=== PATIENT | female | born 1975 | race Caucasian/White ===

== ENCOUNTER 2016-03-07 15:49 | Emergency (ER) | payer MEDICAID ==
[2016-03-07] MEDS ORDERED: ONDANSETRON 4 MG TAB.RAPDIS PO ONE (16:56)
[2016-03-07] MEDS ORDERED: OXYCODONE-ACETAMINOPHEN 5-325 MG TABLET PO ONE (16:56)
--- NOTE | 2016-03-07 16:57 | ER Document Report ---
ED Medical Screen (RME) - General Chief Complaint: Flank Pain Stated Complaint: URINARY ISSUE Time seen by provider: 16:57 Mode of Arrival: Ambulatory Information source: Patient Notes: 40-year-old female complaining of right flank pain with hematuria since early Tuesday morning at 0330 when it woke her up The pain radiates into her right middle abdomen and she feels like it is a kidney stone. She's had lithotripsy in the past. LMP 12-15-16 TRAVEL OUTSIDE OF THE [place] IN LAST 30 DAYS: No - Related Data Allergies/Adverse Reactions: prochlorperazine edisylate [From Compazine] Allergy (Severe, Verified 04/21/12 13:03) Facial swelling prochlorperazine maleate [From Compazine] Allergy (Severe, Verified 04/21/12 13: 03) Facial swelling verapamil [Verapamil] Allergy (Intermediate, Verified 04/21/12 13:03) Pruritis Past Medical History - Past Medical History Cardiac Medical History: Reports: Hx Hypercholesterolemia, Hx Hypertension Pulmonary Medical History: Reports: Hx Asthma Neurological Medical History: Denies: Hx Seizures Renal/ Medical History: Reports: Hx Kidney Stones Past Surgical History: Reports: Hx Section, Hx Tonsillectomy, Hx Urinary Tract Surgery. Denies: Hx Pacemaker - Immunizations Hx Diphtheria, Pertussis, Tetanus Vaccination: Yes Physical Exam - Vital signs Vitals: Temp Pulse Resp BP Pulse Ox 97.5 F 98 16 108/68 97 03/07/16 16:07 03/07/16 16:07 03/07/16 16:07 03/07/16 16:07 03/07/16 16:07 Course - Vital Signs Vital signs: Temp Pulse Resp BP Pulse Ox 97.5 F 98 16 108/68 97 03/07/16 16:07 03/07/16 16:07 03/07/16 16:07 03/07/16 16:07 03/07/16 16:07
[2016-03-07] MEDS ORDERED: NORMAL SALINE 1000 ML 1,000 ML IV ONE (18:10)
[2016-03-07 18:28] LABS: APPEARANCE,URINE CLOUDY; BILIRUBIN,URINE NEGATIVE (NEGATIVE); GLUCOSE, URINE NEGATIVE (NEGATIVE); KETONES,URINE NEGATIVE (NEGATIVE); LEUKOCYTE ESTERASE,URINE LARGE (NEGATIVE); NITRITE,URINE NEGATIVE (NEGATIVE); PROTEIN,URINE 100 mg/dL (NEGATIVE); URINE SPECIFIC GRAVITY 1.015; UROBILINOGEN,URINE NEGATIVE mg/dL (<2.0)
[2016-03-07] MEDS ORDERED: CEFTRIAXONE 1 GM/D5W RTU 50 ML IV ONE (18:35)
[2016-03-07 18:44] LABS: ABSOLUTE BASOPHILS # (AUTO) 0.1 10^3/uL (0.0-0.2); ABSOLUTE EOSINOPHILS # (AUTO) 0.1 10^3/uL (0.0-0.6); ABSOLUTE LYMPHOCYTES (AUTO) 3.3 10^3/uL (0.5-4.7); ABSOLUTE NEUT (AUTO) 15.3 10^3/uL (1.7-8.2); BASOPHILS % (AUTO) 0.6 % (0-2); EOSINOPHILS % (AUTO) 0.7 % (0-6); HEMATOCRIT 36.6 % (36.0-47.0); HEMOGLOBIN 12.1 g/dL (12.0-15.5); HGB HCT DIFFERENCE -0.3; LYMPHOCYTES % (AUTO) 16.6 % (13-45); MEAN CORPUSCULAR HEMOGLOBIN 29.5 pg (27.0-33.4); MEAN CORPUSCULAR HGB CONC 33.1 g/dL (32.0-36.0); MEAN CORPUSCULAR VOLUME 89 fl (80-97); MONOCYTES % (AUTO) 5.1 % (3-13); RED CELL DISTRIBUTION WIDTH 13.7 % (11.5-14.0); WHITE BLOOD COUNT 19.8 10^3/uL (4.0-10.5)
[2016-03-07 18:58] LABS: ALANINE AMINOTRANSFERASE 29 U/L (9-52); ALBUMIN 3.6 g/dL (3.5-5.0); ALKALINE PHOSPHATASE 77 U/L (38-126); ANION GAP 12 (5-19); ASPARTATE AMINO TRANSFERASE 15 U/L (14-36); BILIRUBIN,TOTAL 0.5 mg/dL (0.2-1.3); BLOOD UREA NITROGEN 13 mg/dL (7-20); CARBON DIOXIDE 23 mmol/L (22-30); CHLORIDE 105 mmol/L (98-107); CREATININE RESULT 0.79 mg/dL (0.52-1.25); GLUCOSE 97 mg/dL (75-110); POTASSIUM 4.2 mmol/L (3.6-5.0); SODIUM 139.5 mmol/L (137-145); TOTAL PROTEIN 6.5 g/dL (6.3-8.2)
[2016-03-07 19:19] VITALS: BP 101/64
--- NOTE | 2016-03-07 19:26 | ER Document Report ---
ED General - General Chief Complaint: Flank Pain Stated Complaint: URINARY ISSUE Mode of Arrival: Ambulatory TRAVEL OUTSIDE OF THE [place] IN LAST 30 DAYS: No - HPI Patient complains to provider of: hematuria flank pain right Onset: Yesterday Onset/Duration: Sudden Quality of pain: Achy Severity: Moderate Pain Level: 3 Associated symptoms: Nausea Exacerbated by: Denies Relieved by: Denies Similar symptoms previously: Yes Recently seen / treated by doctor: No Notes: Patient states history kidney stones states similar to kidney stones the past. Patient states as passing blood clots. States no fevers no chills slight nausea no vomiting. No recent travel no recent antibiotics. - Related Data Allergies/Adverse Reactions: prochlorperazine edisylate [From Compazine] Allergy (Severe, Verified 04/21/12 13:03) Facial swelling prochlorperazine maleate [From Compazine] Allergy (Severe, Verified 04/21/12 13: 03) Facial swelling verapamil [Verapamil] Allergy (Intermediate, Verified 04/21/12 13:03) Pruritis Past Medical History - General Information source: Patient - Social History Smoking Status: Unknown if Ever Smoked Family History: None - Past Medical History Cardiac Medical History: Reports: Hx Hypercholesterolemia, Hx Hypertension Pulmonary Medical History: Reports: Hx Asthma Neurological Medical History: Denies: Hx Seizures Renal/ Medical History: Reports: Hx Kidney Stones Past Surgical History: Reports: Hx Section, Hx Tonsillectomy, Hx Urinary Tract Surgery. Denies: Hx Pacemaker - Immunizations Hx Diphtheria, Pertussis, Tetanus Vaccination: Yes Review of Systems - Review of Systems Constitutional: No symptoms reported EENT: No symptoms reported Cardiovascular: No symptoms reported Respiratory: No symptoms reported Gastrointestinal: Nausea, Other - Flank pain Genitourinary: No symptoms reported Female Genitourinary: No symptoms reported Musculoskeletal: No symptoms reported Skin: No symptoms reported Hematologic/Lymphatic: No symptoms reported Neurological/Psychological: No symptoms reported Physical Exam - Vital signs Vitals: Temp Pulse Resp BP Pulse Ox 97.5 F 98 16 108/68 97 03/07/16 16:07 03/07/16 16:07 03/07/16 16:07 03/07/16 16:07 03/07/16 16:07 Interpretation: Normal - General General appearance: Appears well, Alert - HEENT Head: Normocephalic, Atraumatic Eyes: Normal Pupils: PERRL - Respiratory Respiratory status: No respiratory distress Chest status: Nontender Breath sounds: Normal Chest palpation: Normal - Cardiovascular Rhythm: Regular Heart sounds: Normal auscultation Murmur: No - Abdominal Inspection: Normal Distension: No distension Bowel sounds: Normal Tenderness: Nontender Organomegaly: No organomegaly - Rectal Notes: Flank pain right side - Back Back: Normal, Nontender - Extremities General upper extremity: Normal inspection, Nontender, Normal color, Normal ROM , Normal temperature General lower extremity: Normal inspection, Nontender, Normal color, Normal ROM , Normal temperature, Normal weight bearing. No: Sneha's sign - Neurological Neuro grossly intact: Yes Cognition: Normal Orientation: AAOx4 [place] Coma Scale Eye Opening: Spontaneous [place] Coma Scale Verbal: Oriented [place] Coma Scale Motor: Obeys Commands [place] Coma Scale Total: 15 Speech: Normal Motor strength normal: LUE, RUE, LLE, RLE Sensory: Normal - Psychological Associated symptoms: Normal affect, Normal mood - Skin Skin Temperature: Warm Skin Moisture: Dry Skin Color: Normal Course - Re-evaluation Re-evalutation: 03/08/16 02:53 Patient with a white count and urinalysis showing signs of infection. CT scan did not show any obstructive uropathy. Patient will be given a dose of antibiotic here and will be discharged home with oral antibiotics. Patient agrees this plan patient will follow-up with PCP. Urine was sent for culture. - Vital Signs Vital signs: Temp Pulse Resp BP Pulse Ox 97.5 F 98 18 101/64 93 03/07/16 16:07 03/07/16 16:07 03/07/16 19:01 03/07/16 19:01 03/07/16 19:01 - Laboratory Result Diagrams: 03/07/16 18:20 03/07/16 18:20 Laboratory results interpreted by me: 03/07/16 03/07/16 16:07 18:20 WBC 19.8 H Absolute Neutrophils 15.3 H Urine Protein 100 H Urine Blood MODERATE H Ur Leukocyte Esterase LARGE H Discharge - Discharge Clinical Impression: Pyelonephritis, Right ovarian cyst Condition: Stable Disposition: HOME, SELF-CARE Instructions: Rocephin ([facility]), Trimethoprim-Sulfa ([facility]), Oral Narcotic Medication ([facility]), Pyelonephritis ([facility]) Additional Instructions: Your laboratory today shows signs of infection due to you having flank pain and more likely this infection is in your kidney. This can also be causing her hematuria. We will give you a dose of Rocephin here in the ER. I will treat her pain with a medication called Pyridium that was normal. Bladder. Also we will treat your pain with Ultram. He can still take Tylenol and Motrin for your pain. Return to ER symptoms worsen. Follow-up with your primary care physician. We will send her urine for culture these results will take approximately 48-72 hours. Please have your primary care provider follow-up on culture results. You can expect to have hematuria for the next few days this will gradually clear up once he infection clears. Prescriptions: Ondansetron [Zofran Odt 4 mg Tablet] 4 mg PO Q4HP PRN #30 tab.rapdis PRN Reason: Hydrocodone Bit/Acetaminophen [Hydrocodon-Acetaminophen 5-325] 1 each PO Q6 #20 tablet Phenazopyridine HCl [Pyridium 100 Mg Tablet] 100 mg PO TID #15 tablet Sulfamethoxazole/Trimethoprim [Bactrim Ds Tablet] 1 each PO BID #20 tablet Forms: Smoking Cessation Education, Return to Work
[2016-03-07] MEDS ORDERED: ONDANSETRON ODT 4 MG TAB (6 TAB/DSPK) PO PRN (19:35)
[2016-03-07] MEDS ORDERED: HYDROCODONE/ACETAMINOPHEN 5-325 MG 6 TAB/DSPK PO PRN (19:35)
== END 2016-03-07 20:07 | disposition home or self-care (01) ==
LOC: ER 15:49
DX: N12 Tubulo-interstitial nephritis, not specified as acute or chronic (principal); N83.201 Unspecified ovarian cyst, right side; R10.9 Unspecified abdominal pain; R31.9 Hematuria, unspecified; E78.00 Pure hypercholesterolemia, unspecified; I10 Essential (primary) hypertension; Z87.442 Personal history of urinary calculi
CPT/HCPCS: 99284; 96361; 96365; 36415; 87040; 87086; 85025; 81025; 87088; 80053; 81001; 87186; 76380; S0119; J7030; J0696

== ENCOUNTER 2016-09-30 23:49 | Emergency (ER) | payer MEDICAID ==
[2016-10-01 02:46] LABS: APPEARANCE,URINE CLEAR; BILIRUBIN,URINE NEGATIVE (NEGATIVE); GLUCOSE, URINE NEGATIVE (NEGATIVE); KETONES,URINE NEGATIVE (NEGATIVE); LEUKOCYTE ESTERASE,URINE TRACE (NEGATIVE); NITRITE,URINE NEGATIVE (NEGATIVE); PROTEIN,URINE NEGATIVE (NEGATIVE); URINE SPECIFIC GRAVITY 1.011; UROBILINOGEN,URINE NEGATIVE mg/dL (<2.0)
[2016-10-01 02:52] LABS: ABSOLUTE BASOPHILS # (AUTO) 0.1 10^3/uL (0.0-0.2); ABSOLUTE EOSINOPHILS # (AUTO) 0.2 10^3/uL (0.0-0.6); ABSOLUTE LYMPHOCYTES (AUTO) 3.2 10^3/uL (0.5-4.7); ABSOLUTE NEUT (AUTO) 15.4 10^3/uL (1.7-8.2); BASOPHILS % (AUTO) 0.5 % (0-2); EOSINOPHILS % (AUTO) 0.9 % (0-6); HEMATOCRIT 44.8 % (36.0-47.0); HEMOGLOBIN 15.3 g/dL (12.0-15.5); HGB HCT DIFFERENCE 1.1; LYMPHOCYTES % (AUTO) 16.3 % (13-45); MEAN CORPUSCULAR HEMOGLOBIN 30.2 pg (27.0-33.4); MEAN CORPUSCULAR HGB CONC 34.1 g/dL (32.0-36.0); MEAN CORPUSCULAR VOLUME 89 fl (80-97); RED BLOOD COUNT 5.06 10^6/uL (3.72-5.28); RED CELL DISTRIBUTION WIDTH 13.7 % (11.5-14.0); SEGMENTED NEUTROPHILS % (AUTO) 77.3 % (42-78); WHITE BLOOD COUNT 19.9 10^3/uL (4.0-10.5)
[2016-10-01 02:55] LABS: ALANINE AMINOTRANSFERASE 28 U/L (9-52); ALBUMIN 4.3 g/dL (3.5-5.0); ALKALINE PHOSPHATASE 95 U/L (38-126); ANION GAP 13 (5-19); ASPARTATE AMINO TRANSFERASE 17 U/L (14-36); BILIRUBIN,DIRECT 0.4 mg/dL (0.0-0.4); BILIRUBIN,TOTAL 0.5 mg/dL (0.2-1.3); BLOOD UREA NITROGEN 17 mg/dL (7-20); CALCIUM 10.5 mg/dL (8.4-10.2); CARBON DIOXIDE 25 mmol/L (22-30); CHLORIDE 102 mmol/L (98-107); CREATININE RESULT 0.87 mg/dL (0.52-1.25); GLUCOSE 101 mg/dL (75-110); LIPASE 227.6 U/L (23-300); POTASSIUM 4.9 mmol/L (3.6-5.0); TOTAL PROTEIN 7.9 g/dL (6.3-8.2)
[2016-10-01] MEDS ORDERED: NORMAL SALINE 1000 ML 1,000 ML IV PRN (04:01)
[2016-10-01] MEDS ORDERED: MORPHINE SULFATE 10 MG/ML INJ IV ONE ×3 (04:01→09:56)
[2016-10-01] MEDS ORDERED: ONDANSETRON HCL INJ/PF 4 MG/2 ML SDV IV ONE (04:01)
[2016-10-01] MEDS ORDERED: NORMAL SALINE 1000 ML 1,000 ML IV ONE (04:01)
--- NOTE | 2016-10-01 07:31 | ER Document Report ---
ED GI/ <BRYCE CASTRO - Last Filed: 10/01/16 11:56> - General Mode of Arrival: Ambulatory Information source: Patient TRAVEL OUTSIDE OF THE [place] IN LAST 30 DAYS: No - HPI Patient complains to provider of: Abdominal pain Onset: Other - 5 days Timing/Duration: Waxing and waning Quality of pain: Sharp Severity at maximum: Severe Severity in ED: Moderate Pain Level: 3 Location: LLQ Associated symptoms: Nausea. denies: Vomiting Exacerbated by: Food Relieved by: Denies Similar symptoms previously: No Recently seen / treated by doctor: No <SEVERINO TEMPLE - Last Filed: 10/01/16 21:21> - General Chief Complaint: Abdominal Pain Stated Complaint: ABDOMINAL PAIN Time Seen by Provider: 10/01/16 02:15 Notes: 41-year-old female presents to ED for abdominal pain with low back pain for the last 5 days. She states she took Pepto-Bismol and then 2 days later developed black stools. She also complained of dizziness and nausea. She states the pain is worse with eating. She has not had any vomiting. Pain is worse on her lower left side. Last menstrual period was September 17. 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 (SEVERINO TEMPLE) - Related Data Allergies/Adverse Reactions: prochlorperazine edisylate [From Compazine] Allergy (Severe, Verified 10/01/16 07:54) Facial swelling prochlorperazine maleate [From Compazine] Allergy (Severe, Verified 10/01/16 07: 54) Facial swelling verapamil [Verapamil] Allergy (Intermediate, Verified 10/01/16 07:54) Pruritis Past Medical History - General Information source: Patient - Social History Smoking Status: Current Every Day Smoker Cigarette use (# per day): Yes Chew tobacco use (# tins/day): No Smoking Education Provided: Yes Frequency of alcohol use: None Drug Abuse: None Family History: None Patient has suicidal ideation: No Patient has homicidal ideation: No - Past Medical History Cardiac Medical History: Reports: Hx Hypercholesterolemia, Hx Hypertension Pulmonary Medical History: Reports: Hx Asthma EENT Medical History: Reports: None Neurological Medical History: Reports: None Endocrine Medical History: Reports: None Renal/ Medical History: Reports: Hx Kidney Stones Malignancy Medical History: Reports: None Musculoskeltal Medical History: Reports Hx Musculoskeletal Deformity, Reports Hx Musculoskeletal Trauma Skin Medical History: Reports Hx Eczema, Reports Hx Psoriasis Psychiatric Medical History: Reports: Hx Anxiety, Hx Depression, Hx Post Traumatic Stress Disorder Traumatic Medical History: Reports: Hx Fractures Past Surgical History: Reports: Hx Section, Hx Tonsillectomy, Hx Urinary Tract Surgery. Denies: Hx Pacemaker - Immunizations Hx Diphtheria, Pertussis, Tetanus Vaccination: Yes <SEVERINO TEMPLE - Last Filed: 10/01/16 21:21> Review of Systems - Review of Systems Constitutional: No symptoms reported EENT: No symptoms reported Cardiovascular: No symptoms reported Respiratory: No symptoms reported Gastrointestinal: Abdominal pain, Nausea. denies: Vomiting Genitourinary: No symptoms reported Female Genitourinary: No symptoms reported Musculoskeletal: No symptoms reported Skin: No symptoms reported Hematologic/Lymphatic: No symptoms reported Neurological/Psychological: No symptoms reported -: Yes All other systems reviewed and negative <SEVERINO TEMPLE - Last Filed: 10/01/16 21:21> Physical Exam - Vital signs Interpretation: Normal - General General appearance: Appears well, Alert - HEENT Head: Normocephalic, Atraumatic Eyes: Normal Pupils: PERRL - Respiratory Respiratory status: No respiratory distress Chest status: Nontender Breath sounds: Normal Chest palpation: Normal - Cardiovascular Rhythm: Regular Heart sounds: Normal auscultation Murmur: No - Abdominal Inspection: Normal Distension: No distension Bowel sounds: Normal Tenderness: Tender - left lower abdominal and low back pain Organomegaly: No organomegaly - Back Back: Normal, Nontender - Extremities General upper extremity: Normal inspection, Nontender, Normal color, Normal ROM , Normal temperature General lower extremity: Normal inspection, Nontender, Normal color, Normal ROM , Normal temperature, Normal weight bearing. No: Sneha's sign - Neurological Neuro grossly intact: Yes Cognition: Normal Orientation: AAOx4 [place] Coma Scale Eye Opening: Spontaneous Augie Coma Scale Verbal: Oriented [place] Coma Scale Motor: Obeys Commands [place] Coma Scale Total: 15 Speech: Normal Motor strength normal: LUE, RUE, LLE, RLE Sensory: Normal - Psychological Associated symptoms: Normal affect, Normal mood - Skin Skin Temperature: Warm Skin Moisture: Dry Skin Color: Normal <SEVERINO TEMPLE - Last Filed: 10/01/16 21:21> - Vital signs Vitals: Temp Pulse Resp BP Pulse Ox 99.1 F 103 H 16 145/84 H 96 10/01/16 00:00 10/01/16 00:00 10/01/16 00:00 10/01/16 00:00 10/01/16 00:00 Course - Laboratory Result Diagrams: 10/01/16 02:30 10/01/16 02:30 <BRYCE CASTRO - Last Filed: 10/01/16 11:56> - Laboratory Result Diagrams: 10/01/16 02:30 10/01/16 02:30 <SEVERINO TEMPLE - Last Filed: 10/01/16 21:21> - Re-evaluation Re-evalutation: 10/01/16 07:[address], c/o pain., morphine for pain, tender LLQ over bowel. No vaginal discharge. 10/01/16 07:53 10/01/16 08:36 ct scan shows bila. 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 bowel OK. Nothingd to show what is causing the evelated wbc and LLQ tenderness. 10/01/16 11:34 ultrasound is negative except for small right ovarian cyst. Will send home per dr. crum. (BRYCE CASTRO) 10/01/16 07:40 report given to Daron Castro [facility] (SEVERINO TEMPLE) - Vital Signs Vital signs: Temp Pulse Resp BP Pulse Ox 98 F 83 16 126/96 H 99 10/01/16 12:20 10/01/16 12:20 10/01/16 12:20 10/01/16 12:20 10/01/16 12:20 - Laboratory Laboratory results interpreted by me: 10/01/16 10/01/16 10/01/16 02:30 02:30 02:30 WBC 19.9 H Absolute Neutrophils 15.4 H Calcium 10.5 H Ur Leukocyte Esterase TRACE H Discharge <BRYCE CASTRO - Last Filed: 10/01/16 11:56> <SEVERINO TEMPLE - Last Filed: 10/01/16 21:21> - Discharge Clinical Impression: Abdominal pain, left lower quadrant Condition: Good Disposition: HOME, SELF-CARE Instructions: Abdominal Pain ([facility]), Pain Medication Injection ([facility]), Ultram ( [facility]) Additional Instructions: to er if worse see your provider at [facility] Please complete the patient satisfaction survey if you get one, and return it.. If you do not receive a survey, then you can go to the [facility] website, [email or web address] and place your comments about your very good care. Thank you very much. It was a pleasure being your medical provider today. Prescriptions: Tramadol HCl [Ultram 50 mg Tablet] 50 mg PO ASDIR PRN #20 tablet PRN Reason: Forms: Return to Work
--- NOTE | 2016-10-01 08:10 | RADIOLOGY REPORT (SQ) ---
EXAM DESCRIPTION: CT ABD/PELVIS WITH IV ORAL COMPLETED DATE/TIME: 10/01/2016 7:49 am REASON FOR STUDY: abdominal pain COMPARISON: 03.07.16 TECHNIQUE: CT scan of the abdomen and pelvis performed using helical scanning technique with dynamic intravenous contrast injection. No oral contrast. Images reviewed with lung, soft tissue, and bone windows. Reconstructed coronal and sagittal MPR images reviewed. Delayed images for evaluation of the urinary system also acquired. All images stored on PACS. All CT scanners at this facility use dose modulation, iterative reconstruction, and/or weight based d osing when appropriate to reduce radiation dose to as low as reasonably achievable (ALARA). [facility]: Dose Right [facility]: CareDose [facility]: Dose Right [facility]: Teradose 4D [facility]: [employer] [facility] CONTRAST TYPE AND DOSE: contrast/concentration: Isovue 370.00 mg/ml; Total Contrast Delivered: 100.0 ml; Total Saline Delivered: 72.0 ml RENAL FUNCTION: Creatinine 0.9. RADIATION DOSE: Up-to-date CT equipment and radiation dose reduction techniques were employed. CTDIv ol: 22.8 - 23.2 mGy. DLP: 2304 mGy-cm.. LIMITATIONS: None. FINDINGS: LOWER CHEST: No significant findings. No nodules or infiltrates. LIVER: Mild hepatomegaly measuring 23 cm (CC). No masses. 1.0 cm diameter common duct, likely chron ic. Minimal intrahepatic ductal prominence. PANCREAS: No masses. No significant calcifications. No adjacent inflammation or peripancreatic fluid collections. Pancreatic duct not dilated. GALLBLADDER: No identified stones by CT criteria. No inflammatory changes to suggest cholecystitis. ADRENAL GLANDS: No significant masses or asymmetry. RIGHT KIDNEY AND URETER: No solid masses. No significant calcifications. No hydronephrosis or hyd roureter. LEFT KIDNEY AND URETER: Partially duplicated left renal collecting system. No solid masses. No si gnificant calcifications. No hydronephrosis or hydroureter. AORTA AND VESSELS: No aneurysm. No dissection. Renal arteries, SMA, celiac without stenosis. RETROPERITONEUM: No retroperitoneal adenopathy, hemorrhage or masses. BOWEL AND PERITONEAL CAVITY: No masses or inflammatory changes. No free fluid or peritoneal masses. APPENDIX: Normal. PELVIS: No mass. No free fluid. Normal bladder. Small cystic prominence of bilateral ovaries measur ing up to 1.9 cm, right more than left, within normal limits. ABDOMINAL WALL: No masses. No hernias. BONES: No significant or acute findings. OTHER: No other significant finding. IMPRESSION: 1.0 cm nonspecific dilation of the common bile duct. Laboratory correlation recommended . Mild hepatomegaly. TECHNICAL DOCUMENTATION: JOB ID: [id number] Quality ID # [id number]: Final reports with documentation of one or more dose reduction techniques (e.g., Au tomated exposure control, adjustment of the mA and/or kV according to patient size, use of iterative reconstruction technique) 2010 [employer]- All Rights Reserved
--- NOTE | 2016-10-01 11:25 | RADIOLOGY REPORT (SQ) ---
EXAM DESCRIPTION: U/S NON OB PEL TV W/DOPPLER COMPLETED DATE/TIME: 10/01/2016 10:58 am REASON FOR STUDY: LLQ pain COMPARISON: None. TECHNIQUE: Dynamic and static grayscale images acquired of the pelvis via transvaginal approach and recorded on PACS. Additional selected color Doppler and spectral images recorded. LIMITATIONS: None. FINDINGS: UTERUS: Contour normal. No mass. ENDOMETRIAL STRIPE: No focal or generalized thickening. No masses. CERVIX: 1.6 cm. No nabothian cysts. RIGHT OVARY: No solid masses. There is a 14 mm cyst. RIGHT OVARY DOPPLER: Normal arterial vascular flow without evidence for torsion. LEFT OVARY: No abnormal masses. LEFT OVARY DOPPLER: Normal arterial vascular flow without evidence for torsion. FREE FLUID: None noted. OTHER: No other significant finding. MEASUREMENTS: UTERUS: 92 x 59 x 47 mm ENDOMETRIAL STRIPE: 8 mm RIGHT OVARY: 17 x 18 x 15 mm LEFT OVARY: 25 x 16 x 14 mm IMPRESSION: The study is essentially normal. There is a small right ovarian cyst. TECHNICAL DOCUMENTATION: JOB ID: [id number]- All Rights Reserved
[2016-10-01 12:40] VITALS: BP 126/96
== END 2016-10-01 12:20 | disposition home or self-care (01) ==
LOC: ER 23:49
DX: N83.202 Unspecified ovarian cyst, left side (principal); N83.201 Unspecified ovarian cyst, right side; Q62.5 Duplication of ureter; D72.829 Elevated white blood cell count, unspecified; R10.32 Left lower quadrant pain; R10.814 Left lower quadrant abdominal tenderness; R11.0 Nausea; M54.5 Low back pain; R42 Dizziness and giddiness; I10 Essential (primary) hypertension; J45.909 Unspecified asthma, uncomplicated; F17.210 Nicotine dependence, cigarettes, uncomplicated; Z88.8 Allergy status to other drugs, medicaments and biological substances; Z87.442 Personal history of urinary calculi
CPT/HCPCS: 36415; 87086; 83690; 85025; 81025; 80053; 81001; 76830; 93976; 74177; J2270; J2405; J7030; 96361; 96374; 96375; 96376; 99284

== ENCOUNTER 2016-10-14 03:31 | Emergency (ER) | payer MEDICAID ==
--- NOTE | 2016-10-14 06:13 | ER Document Report ---
HPI - HPI Pain Level: 5 Notes: Patient is a 41-year-old female who presents the ED complaining of ongoing low back pain and lower abdominal/pelvic pain since her visit 2 weeks ago. Patient states that she did begin to have chills and feel feverish over the last day. Patient states that no position helps with her back. The back pain does not radiate. Patient states that she continues to have that lower abdominal pain and the pain does not radiate. The pain is described as sharp and throbbing in her low back and in her abdomen. Patient states that her bowels have been small and soft, but patient questions a possible blockage over the last 2-3 days. Patient states that she did start her period and is currently on day 5 of that cycle. Otherwise, patient states that she still eating and drinking without any difficulties. She denies any loss of control of bowel or bladder, numbness/tingling, urinary retention, or saddle anesthesia. Patient has not gone back to see her PCM after her discharge 2 weeks ago from the ED. Denies any headache, neck pain/stiffness, URI, sore throat, chest pain, palpitations, syncope, cough, shortness of breath, wheeze, dyspnea, nausea/vomiting/diarrhea, melena, hematochezia, dysuria, hematuria, muscle paralysis/weakness, or rash. Denies any back procedures/injections. + smoking, but denies drug use. - ROS Notes: REVIEW OF SYSTEMS: CONSTITUTIONAL : Denies fever, chills, or sweats. Denies recent illness. EENT: Denies eye, ear, throat, or mouth pain or symptoms. Denies nasal or sinus congestion or discharge. Denies throat, tongue, or mouth swelling or difficulty swallowing. CARDIOVASCULAR: Denies chest pain. Denies palpitations or racing or irregular heart beat. Denies ankle edema. RESPIRATORY: Denies cough, cold, or chest congestion. Denies shortness of breath, difficulty breathing, or wheezing. GASTROINTESTINAL: see hpi GENITOURINARY: Denies difficulty urinating, painful urination, burning, frequency, blood in urine, or discharge. FEMALE GENITOURINARY: see hpi MUSCULOSKELETAL: Denies back or neck pain or stiffness. Denies joint pain or swelling. SKIN: Denies rash, lesions or sores. NEUROLOGICAL: Denies confusion or altered mental status. Denies passing out or loss of consciousness. Denies dizziness or lightheadedness. Denies headache. Denies weakness or paralysis or loss of use of either side. Denies problems with gait or speech. Denies sensory loss, numbness, or tingling. ALL OTHER SYSTEMS REVIEWED AND NEGATIVE. Dictation was performed using [email or web address] voice recognition software - REPRODUCTIVE Reproductive: DENIES: : - DERM Skin Color: Normal, [place] <CHERELLE BLACK - Last Filed: 10/14/16 07:35> Past Medical History - Social History Smoking Status: Current Every Day Smoker Family History: None - Past Medical History Cardiac Medical History: Reports: Hx Hypercholesterolemia, Hx Hypertension Pulmonary Medical History: Reports: Hx Asthma Neurological Medical History: Denies: Hx Seizures Renal/ Medical History: Reports: Hx Kidney Stones. Denies: Hx Peritoneal Dialysis Musculoskeltal Medical History: Reports Hx Musculoskeletal Deformity, Reports Hx Musculoskeletal Trauma Skin Medical History: Reports Hx Eczema, Reports Hx Psoriasis Psychiatric Medical History: Reports: Hx Anxiety, Hx Depression, Hx Post Traumatic Stress Disorder Traumatic Medical History: Reports: Hx Fractures Past Surgical History: Reports: Hx Section, Hx Tonsillectomy, Hx Urinary Tract Surgery. Denies: Hx Pacemaker - Immunizations Hx Diphtheria, Pertussis, Tetanus Vaccination: Yes <CHERELLE BLACK - Last Filed: 10/14/16 07:35> Vertical Provider Document - CONSTITUTIONAL Agree With Documented VS: Yes Notes: PHYSICAL EXAMINATION: GENERAL: Well-appearing, well-nourished and in no acute distress. NECK: Normal range of motion, supple without lymphadenopathy LUNGS: Breath sounds clear to auscultation bilaterally and equal. No wheezes rales or rhonchi. HEART: Regular rate and rhythm without murmurs, rubs, gallops. ABDOMEN: Soft, nondistended abdomen. No guarding, no rebound. No masses appreciated. Normal bowel sounds present. No CVA tenderness bilaterally. + tenderness to lower abdomen/suprapubic. No pulsatile mass. Musculoskeletal: LE's b/l: FROM to passive/active. Strength 5+/5. SLR negative b/l. Reflexes intact 2+ b/l. Back: FROM to passive/active. Strength 5+/5. + tenderness to L-paraspinal and L-spine. No obvious deformity or step-offs noted. Extremities: No cyanosis, clubbing, or edema b/l. Peripheral pulses 2+. Capillary refill less than 3 seconds. NEUROLOGICAL: Normal speech, normal gait. Normal sensory, motor exams PSYCH: Normal mood, normal affect. SKIN: Warm, Dry, normal turgor, no rashes or lesions noted. - INFECTION CONTROL TRAVEL OUTSIDE OF THE [place] IN LAST 30 DAYS: No - RESPIRATORY O2 Sat by Pulse Oximetry: 98 <CHERELLE BLACK - Last Filed: 10/14/16 07:35> - GI/ABDOMEN Gastrointestinal: Abdomen Soft, Abdomen Tender - L lower pelvic tenderness - REPRODUCTIVE Female Genitalia: negative: CMT, Adnexal Pain-Right, Adnexal Pain-Left Notes: moderate vaginal bleeding, no discharge, no CMT, no adnexal tenderness <CYNDI HUTCHINS - Last Filed: 10/14/16 11:01> Course - Vital Signs Vital signs: Temp Pulse Resp BP Pulse Ox 98.8 F 97 17 139/78 H 98 10/14/16 03:38 10/14/16 03:38 10/14/16 04:14 10/14/16 03:38 10/14/16 03:38 - Laboratory Result Diagrams: 10/14/16 06:35 10/14/16 06:35 <CHERELLE BLACK - Last Filed: 10/14/16 07:35> - Re-evaluation Re-evalutation: 10/14/16 07:37 bedside report received from Kaur Black. Pt bought multiple bags of snacks and drink to eat. Pt advised of npo status. 10/14/16 10:[address] [place]os[place] who agrees with discharge plan of care. - Vital Signs Vital signs: Temp Pulse Resp BP Pulse Ox 98.8 F 97 17 139/78 H 98 10/14/16 03:38 10/14/16 03:38 10/14/16 04:14 10/14/16 03:38 10/14/16 07:36 - Laboratory Result Diagrams: 10/14/16 06:35 10/14/16 06:35 Laboratory results interpreted by me: 10/14/16 10/14/16 10/14/16 06:35 06:35 06:35 WBC 12.4 H Absolute Neutrophils 9.3 H Carbon Dioxide 20 L Glucose 182 H Urine Protein 30 H Urine Blood LARGE H Ur Leukocyte Esterase SMALL H 10/14/16 10:57 Labs- Entire Visit 10/14/16 10/14/16 10/14/16 06:35 06:35 06:35 WBC 12.4 H RBC 4.73 Hgb 14.0 Hct 41.8 MCV 88 MCH 29.7 MCHC 33.6 RDW 13.3 Plt Count 336 Seg Neutrophils % 75.3 Lymphocytes % 19.1 Monocytes % 4.7 Eosinophils % 0.4 Basophils % 0.5 Absolute Neutrophils 9.3 H Absolute Lymphocytes 2.4 Absolute Monocytes 0.6 Absolute Eosinophils 0.1 Absolute Basophils 0.1 Sodium 139.4 Potassium 3.8 Chloride 106 Carbon Dioxide 20 L Anion Gap 13 BUN 8 Creatinine 0.59 Est GFR ( Amer) > 60 Est GFR (Non-Af Amer) > 60 Glucose 182 H Calcium 9.8 Total Bilirubin 0.4 Direct Bilirubin 0.4 Indirect Bilirubin Not Reportable Neonat Total Bilirubin Not Reportable AST 21 ALT 29 Alkaline Phosphatase 97 Total Protein 7.8 Albumin 4.2 Urine Color YELLOW Urine Appearance SLIGHTLY-CLOUDY Urine pH 5.0 Ur Specific Reserve 1.026 Urine Protein 30 H Urine Glucose (UA) NEGATIVE Urine Ketones NEGATIVE Urine Blood LARGE H Urine Nitrite NEGATIVE Urine Bilirubin NEGATIVE Urine Urobilinogen NEGATIVE Ur Leukocyte Esterase SMALL H Urine WBC (Auto) 50 Urine RBC (Auto) >182 Squamous Epi Cells Auto 1 Urine Mucus (Auto) OCC Urine Ascorbic Acid NEGATIVE Urine HCG, Qual NEGATIVE Epi Cells (Wet Prep) Bacteria (Wet Prep) Trichomonas (Wet Prep) Vaginal WBC Vaginal RBC Vaginal Yeast Chlamydia DNA (PCR) N.gonorrhoeae DNA (PCR) 10/14/16 10/14/16 10/14/16 08:18 08:18 08:18 WBC RBC Hgb Hct MCV MCH MCHC RDW Plt Count Seg Neutrophils % Lymphocytes % Monocytes % Eosinophils % Basophils % Absolute Neutrophils Absolute Lymphocytes Absolute Monocytes Absolute Eosinophils Absolute Basophils Sodium Potassium Chloride Carbon Dioxide Anion Gap BUN Creatinine Est GFR ( Amer) Est GFR (Non-Af Amer) Glucose Calcium Total Bilirubin Direct Bilirubin Indirect Bilirubin Neonat Total Bilirubin AST ALT Alkaline Phosphatase Total Protein Albumin Urine Color YELLOW Urine Appearance SLIGHTLY-CLOUDY Urine pH 5.0 Ur Specific Reserve 1.027 Urine Protein NEGATIVE Urine Glucose (UA) NEGATIVE Urine Ketones NEGATIVE Urine Blood MODERATE H Urine Nitrite NEGATIVE Urine Bilirubin NEGATIVE Urine Urobilinogen NEGATIVE Ur Leukocyte Esterase NEGATIVE Urine WBC (Auto) 4 Urine RBC (Auto) 12 Squamous Epi Cells Auto 1 Urine Mucus (Auto) MANY Urine Ascorbic Acid NEGATIVE Urine HCG, Qual Epi Cells (Wet Prep) 4+ EPITHELIALS SEEN Bacteria (Wet Prep) 4+ BACTERIA SEEN Trichomonas (Wet Prep) NO TRICHOMONAS SEEN Vaginal WBC 3+ WBCS SEEN Vaginal RBC 4+ RBCS SEEN Vaginal Yeast NO YEAST SEEN Chlamydia DNA (PCR) NOT DETECTED N.gonorrhoeae DNA (PCR) DETECTED H Reviewed labs from patient's previous ER visit - Diagnostic Test Radiology reviewed: Reports reviewed - reviewed CT report from previous ER visit <CYNDI HUTCHINS - Last Filed: 10/14/16 11:01> Discharge <CHERELLE BLACK - Last Filed: 10/14/16 07:35> <CYNDI HUTCHINS - Last Filed: 10/14/16 11:01> - Discharge Clinical Impression: Gonorrhea, Bacterial vaginosis, Pelvic pain Low back pain Qualifiers: Chronicity: acute Back pain laterality: bilateral Sciatica presence: without sciatica Qualified Code(s): M54.5 - Low back pain Ovarian cyst Qualifiers: Laterality: bilateral Qualified Code(s): N83.201 - Unspecified ovarian cyst, right side; N83.202 - Unspecified ovarian cyst, left side Fibroid uterus Qualifiers: Uterine leiomyoma location: unspecified location Qualified Code(s): D25.9 - Leiomyoma of uterus, unspecified Condition: Stable Disposition: HOME, SELF-CARE Instructions: Low Back Pain ([facility]), Gonorrhea ([facility]), Oral Narcotic Medication ( [facility]), Vaginosis, Bacterial ([facility]), Metronidazole ([facility]), Rocephin ([facility]), Azithromycin ([facility]), Abdominal Pain ([facility]) Additional Instructions: Return immediately for any new or worsening symptoms Followup with your primary care provider, call tomorrow to make a followup appointment Take a stool softener while you are taking the pain medication Follow-up with a roll examiner for further evaluation of ovarian cysts Have your partner seek treatment for gonorrhea Prescriptions: Hydrocodone/Acetaminophen [[place] 5-325 Tablet] 1 each PO Q4 PRN #8 tablet PRN Reason: Metronidazole [Flagyl 500 mg Tablet] 500 mg PO BID #14 tablet Naproxen [Naprosyn 250 Nmg Tablet] 1 tab PO BID #14 tablet Referrals: [facility] [Provider Group] - Follow up as needed
[2016-10-14 06:54] LABS: ABSOLUTE BASOPHILS # (AUTO) 0.1 10^3/uL (0.0-0.2); ABSOLUTE EOSINOPHILS # (AUTO) 0.1 10^3/uL (0.0-0.6); ABSOLUTE LYMPHOCYTES (AUTO) 2.4 10^3/uL (0.5-4.7); ABSOLUTE MONOCYTES (AUTO) 0.6 10^3/uL (0.1-1.4); ABSOLUTE NEUT (AUTO) 9.3 10^3/uL (1.7-8.2); BASOPHILS % (AUTO) 0.5 % (0-2); EOSINOPHILS % (AUTO) 0.4 % (0-6); HEMATOCRIT 41.8 % (36.0-47.0); HGB HCT DIFFERENCE 0.2; LYMPHOCYTES % (AUTO) 19.1 % (13-45); MEAN CORPUSCULAR HEMOGLOBIN 29.7 pg (27.0-33.4); MEAN CORPUSCULAR HGB CONC 33.6 g/dL (32.0-36.0); MEAN CORPUSCULAR VOLUME 88 fl (80-97); MONOCYTES % (AUTO) 4.7 % (3-13); RED BLOOD COUNT 4.73 10^6/uL (3.72-5.28); RED CELL DISTRIBUTION WIDTH 13.3 % (11.5-14.0); SEGMENTED NEUTROPHILS % (AUTO) 75.3 % (42-78); WHITE BLOOD COUNT 12.4 10^3/uL (4.0-10.5)
[2016-10-14 07:14] LABS: APPEARANCE,URINE SLIGHTLY-CLOUDY; BILIRUBIN,URINE NEGATIVE (NEGATIVE); GLUCOSE, URINE NEGATIVE (NEGATIVE); KETONES,URINE NEGATIVE (NEGATIVE); LEUKOCYTE ESTERASE,URINE SMALL (NEGATIVE); NITRITE,URINE NEGATIVE (NEGATIVE); PROTEIN,URINE 30 mg/dL (NEGATIVE); URINE SPECIFIC GRAVITY 1.026; UROBILINOGEN,URINE NEGATIVE mg/dL (<2.0)
[2016-10-14 07:16] LABS: ALANINE AMINOTRANSFERASE 29 U/L (9-52); ALBUMIN 4.2 g/dL (3.5-5.0); ALKALINE PHOSPHATASE 97 U/L (38-126); ANION GAP 13 (5-19); ASPARTATE AMINO TRANSFERASE 21 U/L (14-36); BILIRUBIN,DIRECT 0.4 mg/dL (0.0-0.4); BILIRUBIN,TOTAL 0.4 mg/dL (0.2-1.3); BLOOD UREA NITROGEN 8 mg/dL (7-20); CALCIUM 9.8 mg/dL (8.4-10.2); CARBON DIOXIDE 20 mmol/L (22-30); CHLORIDE 106 mmol/L (98-107); CREATININE RESULT 0.59 mg/dL (0.52-1.25); GLUCOSE 182 mg/dL (75-110); POTASSIUM 3.8 mmol/L (3.6-5.0); SODIUM 139.4 mmol/L (137-145); TOTAL PROTEIN 7.8 g/dL (6.3-8.2)
[2016-10-14] MEDS ORDERED: NORMAL SALINE 1000 ML 1,000 ML IV ONE (07:37)
--- NOTE | 2016-10-14 07:46 | RADIOLOGY REPORT (SQ) ---
EXAM DESCRIPTION: U/S NON OB PEL TV W/DOPPLER COMPLETED DATE/TIME: 10/14/2016 7:31 am REASON FOR STUDY: suprapubic pain, h/o ovarian cyst(s) COMPARISON: 10/01/2016. TECHNIQUE: Dynamic and static grayscale images acquired of the pelvis via transvaginal approach and recorded on PACS. Additional selected color Doppler and spectral images recorded. LIMITATIONS: None. FINDINGS: UTERUS: Fibroid uterus includes a 1.9 cm anterior intramural uterine fibroid and 2.2 cm po sterolateral, left-sided subserosal exophytic fibroid. ENDOMETRIAL STRIPE: No focal or generalized thickening. No masses. CERVIX: No nabothian cysts. RIGHT OVARY: No abnormal masses. 1.7 cm cystic component within normal limits. RIGHT OVARY DOPPLER: Normal arterial vascular flow without evidence for torsion. LEFT OVARY: No abnormal masses. 2.1 cm cystic component within normal limits. LEFT OVARY DOPPLER: Normal arterial vascular flow without evidence for torsion. FREE FLUID: None noted. OTHER: No other significant finding. MEASUREMENTS: UTERUS: 8.9 x 6 x 5 cm. ENDOMETRIAL STRIPE: 0.9 cm thick. RIGHT OVARY: 2.6 cm. LEFT OVARY: 2.8 cm. IMPRESSION: Fibroid uterus. TECHNICAL DOCUMENTATION: JOB ID: [id number] [employer]- All Rights Reserved
[2016-10-14] MEDS ORDERED: ONDANSETRON HCL INJ/PF 4 MG/2 ML SDV IV ONE (08:12)
[2016-10-14] MEDS ORDERED: KETOROLAC TROMETHAMINE INJ/PF 30 MG/1 ML SDV IV ONE (08:14)
[2016-10-14 08:41] LABS: APPEARANCE,URINE SLIGHTLY-CLOUDY; BILIRUBIN,URINE NEGATIVE (NEGATIVE); GLUCOSE, URINE NEGATIVE (NEGATIVE); KETONES,URINE NEGATIVE (NEGATIVE); LEUKOCYTE ESTERASE,URINE NEGATIVE (NEGATIVE); NITRITE,URINE NEGATIVE (NEGATIVE); PROTEIN,URINE NEGATIVE (NEGATIVE); URINE SPECIFIC GRAVITY 1.027; UROBILINOGEN,URINE NEGATIVE mg/dL (<2.0)
[2016-10-14 10:00] LABS: CHLAM PCR NOT DETECTED (NOT DETECT)
--- NOTE | 2016-10-14 10:24 | RADIOLOGY REPORT (SQ) ---
EXAM DESCRIPTION: KUB/ABDOMEN (SINGLE VIEW) COMPLETED DATE/TIME: 10/14/2016 9:45 am REASON FOR STUDY: LLQ pain COMPARISON: None. NUMBER OF VIEWS: One view. TECHNIQUE: Supine radiographic image of the abdomen acquired. LIMITATIONS: None. FINDINGS: BOWEL GAS PATTERN: Normal bowel gas pattern. No dilated loops. CALCIFICATIONS: Possible calcification overlying the lower pole the left kidney. It is possible that this represents stool. SOFT TISSUES: The right lobe of the liver is prominent. HARDWARE: None in the abdomen. BONES: No acute fracture. No worrisome bone lesions. OTHER: No other significant finding. IMPRESSION: Hepatomegaly versus Fany's lobe, a normal variant. Possible lower calyceal calculus in the left kidney as described. TECHNICAL DOCUMENTATION: JOB ID: [id number] [employer]- All Rights Reserved
[2016-10-14] MEDS ORDERED: CEFTRIAXONE INJ 250 MG VIAL IV ONE (10:43)
[2016-10-14] MEDS ORDERED: AZITHROMYCIN 250 MG TABLET PO ONE (10:43)
[2016-10-14] MEDS ORDERED: METRONIDAZOLE 500 MG TABLET PO ONE (10:43)
[2016-10-14 11:48] VITALS: BP 119/64
== END 2016-10-14 11:48 | disposition home or self-care (01) ==
LOC: ER 03:31
DX: N76.0 Acute vaginitis (principal); B96.89 Other specified bacterial agents as the cause of diseases classified elsewhere; D25.9 Leiomyoma of uterus, unspecified; A54.9 Gonococcal infection, unspecified; N83.202 Unspecified ovarian cyst, left side; M54.5 Low back pain; R10.2 Pelvic and perineal pain; R68.83 Chills (without fever); R19.4 Change in bowel habit; F17.200 Nicotine dependence, unspecified, uncomplicated; I10 Essential (primary) hypertension; J45.909 Unspecified asthma, uncomplicated; Z87.442 Personal history of urinary calculi
CPT/HCPCS: 99284; 96361; 51701; 96375; 96365; 36415; 87210; 85025; 81025; 80053; 81001; 87491; 87591; 74000; 76830; 93976; Q0144; J1885; J2405; J3490; J7030; J0696

== ENCOUNTER 2016-12-30 05:48 | Emergency (ER) | payer MEDICAID ==
[2016-12-30] MEDS ORDERED: ASPIRIN 81 MG TABLET, CHEWABLE PO ONE (06:07)
--- NOTE | 2016-12-30 06:18 | ER Document Report ---
ED General - General Chief Complaint: Chest Pain Stated Complaint: CHEST PAIN Time Seen by Provider: 12/30/16 06:16 Mode of Arrival: Ambulatory Information source: Patient, [facility] Records TRAVEL OUTSIDE OF THE [place] IN LAST 30 DAYS: No - HPI Onset: Yesterday Onset/Duration: Sudden Quality of pain: Dull Severity: Mild Associated symptoms: None Exacerbated by: Denies Relieved by: Denies Similar symptoms previously: Yes Recently seen / treated by doctor: Yes Notes: 41-year-old female who is a active smoker presents with 2 day history of left- sided chest pain. Patient states it radiates down her left arm and into her neck. No shortness of breath, nausea, sweats. No fevers or chills. No recent trauma. Patient does not have any PE or DVT risk factors. Patient does not have known cardiac disease either. - Related Data Allergies/Adverse Reactions: prochlorperazine edisylate [From Compazine] Allergy (Severe, Verified 10/14/16 03:38) Facial swelling prochlorperazine maleate [From Compazine] Allergy (Severe, Verified 10/14/16 03: 38) Facial swelling verapamil [Verapamil] Allergy (Intermediate, Verified 10/14/16 03:38) Pruritis Past Medical History - General Information source: Patient, [facility] Records - Social History Smoking Status: Current Every Day Smoker Family History: None - Past Medical History Cardiac Medical History: Reports: Hx Hypercholesterolemia, Hx Hypertension Pulmonary Medical History: Reports: Hx Asthma Neurological Medical History: Denies: Hx Seizures Renal/ Medical History: Reports: Hx Kidney Stones. Denies: Hx Peritoneal Dialysis Musculoskeltal Medical History: Reports Hx Musculoskeletal Deformity, Reports Hx Musculoskeletal Trauma Skin Medical History: Reports Hx Eczema, Reports Hx Psoriasis Psychiatric Medical History: Reports: Hx Anxiety, Hx Depression, Hx Post Traumatic Stress Disorder Traumatic Medical History: Reports: Hx Fractures Past Surgical History: Reports: Hx Section, Hx Tonsillectomy, Hx Urinary Tract Surgery. Denies: Hx Pacemaker - Immunizations Hx Diphtheria, Pertussis, Tetanus Vaccination: Yes Review of Systems - Review of Systems Cardiovascular: Chest pain -: Yes All other systems reviewed and negative Physical Exam - Vital signs Vitals: Resp Pulse Ox 15 95 12/30/16 05:59 12/30/16 05:59 Interpretation: Normal - General General appearance: Appears well, Alert - HEENT Head: Normocephalic, Atraumatic Eyes: Normal Pupils: PERRL - Respiratory Respiratory status: No respiratory distress Chest status: Nontender Breath sounds: Normal Chest palpation: Normal - Cardiovascular Rhythm: Regular Heart sounds: Normal auscultation Murmur: No - Abdominal Inspection: Normal Distension: No distension Bowel sounds: Normal Tenderness: Nontender Organomegaly: No organomegaly - Back Back: Normal, Nontender - Extremities General upper extremity: Normal inspection, Nontender, Normal color, Normal ROM , Normal temperature General lower extremity: Normal inspection, Nontender, Normal color, Normal ROM , Normal temperature, Normal weight bearing. No: Sneha's sign - Neurological Neuro grossly intact: Yes Cognition: Normal Orientation: AAOx4 Augie Coma Scale Eye Opening: Spontaneous Augie Coma Scale Verbal: Oriented Augie Coma Scale Motor: Obeys Commands Augie Coma Scale Total: 15 Speech: Normal Motor strength normal: LUE, RUE, LLE, RLE Sensory: Normal - Psychological Associated symptoms: Normal affect, Normal mood - Skin Skin Temperature: Warm Skin Moisture: Dry Skin Color: Normal Course - Re-evaluation Re-evalutation: 12/30/16 07:15 Blood count of 19.2 is noted. Chest x-ray is readied negative by radiologist. Laboratory studies are otherwise unremarkable. Patient's vital signs are also within normal limits. Etiology of her chest pain is likely not cardiac. Discussed need for primary care follow-up. - Vital Signs Vital signs: Temp Pulse Resp BP Pulse Ox 18 123/87 H 97 12/30/16 07:16 12/30/16 07:16 12/30/16 06:01 - Laboratory Result Diagrams: 12/30/16 06:10 12/30/16 06:45 Laboratory results interpreted by me: 12/30/16 12/30/16 06:10 06:45 WBC 19.2 H Lymphocytes % (Manual) 49 H Monocytes % (Manual) 2 L Abs Neuts (Manual) 9.4 H Abs Lymphs (Manual) 9.4 H Glucose 141 H - Diagnostic Test Radiology reviewed: Reports reviewed Radiology results interpreted by me: 12/30/16 07:15 CXR NAD - EKG Interpretation by Me EKG shows normal: Sinus rhythm Rate: Normal Rhythm: NSR [place]/QRS: No: Right axis deviation, Left axis deviation Additional EKG results interpreted by me: 12/30/16 06:17 nothning acute Discharge - Discharge Clinical Impression: Chest pain Condition: Good Disposition: HOME, SELF-CARE Instructions: Chest Pain of Unclear Cause ([facility]) Additional Instructions: Follow-up with your primary care provider. Return to the emergency department if worse or for any other problems. Prescriptions: Tramadol HCl 50 mg PO Q6HP PRN #20 tablet PRN Reason: pain
[2016-12-30] MEDS ORDERED: KETOROLAC TROMETHAMINE INJ/PF 30 MG/1 ML SDV IV ONE (06:21)
[2016-12-30 06:41] LABS: HEMATOCRIT 42.6 % (36.0-47.0); HEMOGLOBIN 14.6 g/dL (12.0-15.5); HGB HCT DIFFERENCE 1.2; MEAN CORPUSCULAR HEMOGLOBIN 30.1 pg (27.0-33.4); MEAN CORPUSCULAR HGB CONC 34.3 g/dL (32.0-36.0); MEAN CORPUSCULAR VOLUME 88 fl (80-97); RED BLOOD COUNT 4.87 10^6/uL (3.72-5.28); RED CELL DISTRIBUTION WIDTH 13.8 % (11.5-14.0); WHITE BLOOD COUNT 19.2 10^3/uL (4.0-10.5)
[2016-12-30] MEDS ORDERED: ONDANSETRON 4 MG TAB.RAPDIS PO ONE (06:43)
[2016-12-30 06:59] LABS: BASOPHILS % (MANUAL) 0 % (0-2); EOSINOPHILS % (MANUAL) 0 % (0-6); LYMPHOCYTES % (MANUAL) 49 % (13-45); TOTAL CELLS COUNTED 100
[2016-12-30 07:01] LABS: RBC MORPHOLOGY COMMENT NORMO-CYTIC/CHROMIC
--- NOTE | 2016-12-30 07:06 | RADIOLOGY REPORT (SQ) ---
EXAM DESCRIPTION: CHEST SINGLE VIEW COMPLETED DATE/TIME: 12/30/2016 6:39 am REASON FOR STUDY: CP COMPARISON: None. EXAM PARAMETERS: NUMBER OF VIEWS: One view. TECHNIQUE: Single frontal radiographic view of the chest acquired. RADIATION DOSE: NA LIMITATIONS: None. FINDINGS: LUNGS AND PLEURA: No opacities, masses or pneumothorax. No pleural effusion. MEDIASTINUM AND HILAR STRUCTURES: No masses. Contour normal. HEART AND VASCULAR STRUCTURES: Heart normal in size. Normal vasculature. BONES: No acute findings. HARDWARE: None in the chest. OTHER: No other significant finding. IMPRESSION: NO ACUTE RADIOGRAPHIC FINDING IN THE CHEST. TECHNICAL DOCUMENTATION: JOB ID: [id number]
[2016-12-30 07:07] LABS: ALANINE AMINOTRANSFERASE 38 U/L (9-52); ALBUMIN 4.3 g/dL (3.5-5.0); ALKALINE PHOSPHATASE 82 U/L (38-126); ANION GAP 14 (5-19); ASPARTATE AMINO TRANSFERASE 18 U/L (14-36); BILIRUBIN,DIRECT 0.4 mg/dL (0.0-0.4); BILIRUBIN,TOTAL 0.5 mg/dL (0.2-1.3); BLOOD UREA NITROGEN 14 mg/dL (7-20); CALCIUM 10.2 mg/dL (8.4-10.2); CARBON DIOXIDE 26 mmol/L (22-30); CHLORIDE 103 mmol/L (98-107); CREATINE KINASE 31 U/L (30-135); CREATININE RESULT 0.75 mg/dL (0.52-1.25); GLUCOSE 141 mg/dL (75-110); POTASSIUM 3.7 mmol/L (3.6-5.0); SODIUM 142.7 mmol/L (137-145); TOTAL PROTEIN 7.6 g/dL (6.3-8.2)
[2016-12-30 07:19] LABS: CREATINE KINASE MB < 0.22 ng/mL (<4.55); TROPONIN I < 0.012 ng/mL
[2016-12-30 07:22] VITALS: BP 123/87
--- NOTE | 2016-12-30 09:08 | EKG REPORT ---
SEVERITY:- OTHERWISE NORMAL ECG - SINUS RHYTHM MINIMAL ST DEPRESSION, INFERIOR LEADS : Confirmed by: Andres Oliver 30-Dec-2016 09:07:51
== END 2016-12-30 07:38 | disposition home or self-care (01) ==
LOC: ER 05:48
DX: R07.9 Chest pain, unspecified (principal); F17.200 Nicotine dependence, unspecified, uncomplicated; E78.00 Pure hypercholesterolemia, unspecified; I10 Essential (primary) hypertension; Z87.442 Personal history of urinary calculi
CPT/HCPCS: 93005; 99285; 96374; 36415; 82553; 82550; 85025; 80053; 84484; 71010; 93010; S0119; J1885

== ENCOUNTER 2017-04-02 00:13 | Inpatient (IN) | payer MEDICAID ==
[2017-04-02] MEDS ORDERED: IPRATROPIUM/ALBUTEROL 0.5-2.5 MG/3 ML AMPUL NEB ONE (02:14)
[2017-04-02] MEDS ORDERED: PREDNISONE 20 MG TABLET PO ONE (02:14)
[2017-04-02] MEDS: ALBUTEROL SULFATE 0.083% NEB 2.5 MG/3 ML AMPUL NEB SCH ×2 (02:33→03:24)
[2017-04-02] MEDS ORDERED: NORMAL SALINE 1000 ML 1,000 ML IV ONE (02:56)
[2017-04-02] MEDS ORDERED: MAGNESIUM SULFATE/D5W 1 GM/100 ML RTUPB IV ONE (02:56)
[2017-04-02 03:31] LABS: APPEARANCE,URINE SLIGHTLY-CLOUDY; BILIRUBIN,URINE NEGATIVE (NEGATIVE); COLOR,URINE STRAW; GLUCOSE, URINE NEGATIVE (NEGATIVE); KETONES,URINE NEGATIVE (NEGATIVE); LEUKOCYTE ESTERASE,URINE NEGATIVE (NEGATIVE); NITRITE,URINE NEGATIVE (NEGATIVE); PROTEIN,URINE NEGATIVE (NEGATIVE); URINE SPECIFIC GRAVITY 1.008; UROBILINOGEN,URINE NEGATIVE mg/dL (<2.0)
[2017-04-02 03:39] LABS: A TYPE INFLUENZA AG NEGATIVE (NEGATIVE); B INFLUENZA AG NEGATIVE (NEGATIVE)
[2017-04-02 04:10] LABS: ABSOLUTE BASOPHILS # (AUTO) 0.1 10^3/uL (0.0-0.2); ABSOLUTE LYMPHOCYTES (AUTO) 1.1 10^3/uL (0.5-4.7); ABSOLUTE MONOCYTES (AUTO) 0.3 10^3/uL (0.1-1.4); ABSOLUTE NEUT (AUTO) 6.3 10^3/uL (1.7-8.2); BASOPHILS % (AUTO) 0.8 % (0-2); EOSINOPHILS % (AUTO) 0.4 % (0-6); HEMATOCRIT 44.6 % (36.0-47.0); HEMOGLOBIN 15.1 g/dL (12.0-15.5); LYMPHOCYTES % (AUTO) 13.9 % (13-45); MEAN CORPUSCULAR HEMOGLOBIN 30.5 pg (27.0-33.4); MEAN CORPUSCULAR HGB CONC 33.9 g/dL (32.0-36.0); MEAN CORPUSCULAR VOLUME 90 fl (80-97); MONOCYTES % (AUTO) 4.1 % (3-13); PLATELET COUNT 290 10^3/uL (150-450); RED BLOOD COUNT 4.96 10^6/uL (3.72-5.28); RED CELL DISTRIBUTION WIDTH 14.4 % (11.5-14.0); SEGMENTED NEUTROPHILS % (AUTO) 80.8 % (42-78); TOTAL CELLS COUNTED % (AUTO) 100 %; WHITE BLOOD COUNT 7.8 10^3/uL (4.0-10.5)
[2017-04-02 04:19] LABS: ALANINE AMINOTRANSFERASE 33 U/L (9-52); ALBUMIN 4.5 g/dL (3.5-5.0); ALKALINE PHOSPHATASE 68 U/L (38-126); ANION GAP 11 (5-19); ASPARTATE AMINO TRANSFERASE 26 U/L (14-36); BILIRUBIN,DIRECT 0.3 mg/dL (0.0-0.4); BILIRUBIN,TOTAL 0.4 mg/dL (0.2-1.3); BLOOD UREA NITROGEN 7 mg/dL (7-20); CALCIUM 9.7 mg/dL (8.4-10.2); CARBON DIOXIDE 26 mmol/L (22-30); CHLORIDE 103 mmol/L (98-107); GLUCOSE 140 mg/dL (75-110); MAGNESIUM 1.7 mg/dL (1.6-2.3); POTASSIUM 3.8 mmol/L (3.6-5.0); SODIUM 139.5 mmol/L (137-145); TOTAL PROTEIN 8.1 g/dL (6.3-8.2)
--- NOTE | 2017-04-02 04:22 | RADIOLOGY REPORT (SQ) ---
EXAM DESCRIPTION: CHEST PA/LAT CLINICAL HISTORY: cough COMPARISON: 12/30/2016 FINDINGS: Frontal and lateral views of the chest. The cardiomediastinal silhouette has normal size and contour. No consolidation, pneumothorax, or pleural effusion. Mild peribronchial interstitial thickening. No displaced rib fractures identified. Upper abdominal soft tissues are unremarkable. Leads overlie the chest. IMPRESSION: 1. Peribronchial interstitial thickening. This could be seen with viral illness, reactive airways disease, or interstitial pneumonia.
[2017-04-02] MEDS ORDERED: LEVOFLOXACIN 750 MG/D5W RTU 750 MG/150 ML RTUPB IV ONE (04:26)
[2017-04-02] MEDS ORDERED: BENZONATATE 100 MG CAPSULE PO ONE (04:26)
[2017-04-02] MEDS ORDERED: ALBUTEROL SULFATE 0.083% NEB 2.5 MG/3 ML AMPUL NEB ONE (04:38)
--- NOTE | 2017-04-02 04:42 | ER Document Report ---
ED General - General Chief Complaint: Cough Stated Complaint: CONGESTION Time Seen by Provider: 04/02/17 02:45 TRAVEL OUTSIDE OF THE [place] IN LAST 30 DAYS: No - Related Data Allergies/Adverse Reactions: prochlorperazine edisylate [From Compazine] Allergy (Severe, Verified 10/14/16 03:38) Facial swelling prochlorperazine maleate [From Compazine] Allergy (Severe, Verified 10/14/16 03: 38) Facial swelling verapamil [Verapamil] Allergy (Intermediate, Verified 10/14/16 03:38) Pruritis Past Medical History - Social History Smoking Status: Unknown if Ever Smoked Chew tobacco use (# tins/day): No Frequency of alcohol use: Rare Drug Abuse: None Family History: None Patient has suicidal ideation: No Patient has homicidal ideation: No - Past Medical History Cardiac Medical History: Reports: Hx Hypercholesterolemia, Hx Hypertension Pulmonary Medical History: Reports: Hx Asthma Neurological Medical History: Denies: Hx Seizures Renal/ Medical History: Reports: Hx Kidney Stones. Denies: Hx Peritoneal Dialysis Musculoskeltal Medical History: Reports Hx Musculoskeletal Deformity, Reports Hx Musculoskeletal Trauma Skin Medical History: Reports Hx Eczema, Reports Hx Psoriasis Psychiatric Medical History: Reports: Hx Anxiety, Hx Depression, Hx Post Traumatic Stress Disorder Traumatic Medical History: Reports: Hx Fractures Past Surgical History: Reports: Hx Section, Hx Tonsillectomy, Hx Urinary Tract Surgery. Denies: Hx Pacemaker - Immunizations Hx Diphtheria, Pertussis, Tetanus Vaccination: Yes Physical Exam - Vital signs Vitals: Temp Pulse Resp BP Pulse Ox 98.9 F 100 19 154/102 H 93 04/02/17 01:12 04/02/17 01:12 04/02/17 01:12 04/02/17 01:12 04/02/17 01:12 Course - Re-evaluation Re-evalutation: 04/02/17 04:42 Called hospitalist on-call to admit the patient for hypoxia and pneumonia. States that he is behind cannot accept any more admissions at this time. - Vital Signs Vital signs: Temp Pulse Resp BP Pulse Ox 98.9 F 100 21 H 168/93 H 93 04/02/17 01:12 04/02/17 01:12 04/02/17 03:01 04/02/17 03:01 04/02/17 03:01 - Laboratory Result Diagrams: 04/02/17 03:52 04/02/17 03:52 Laboratory results interpreted by me: 04/02/17 04/02/17 03:52 03:52 RDW 14.4 H Seg Neutrophils % 80.8 H Glucose 140 H
--- NOTE | 2017-04-02 05:10 | ER Document Report ---
ED General - General Chief Complaint: Cough Stated Complaint: CONGESTION Time Seen by Provider: 04/02/17 02:45 TRAVEL OUTSIDE OF THE [place] IN LAST 30 DAYS: No - HPI Patient complains to provider of: Fever cough congestion Notes: No area the last one is daughter to start coming in patient coming in with a 3- 4 day history of fever cough congestion. Patient states smoker since she was 11. Patient 92%.Normally does not wear oxygen at home hours requiring 2 L oxygen to have her SPO2 greater than patient denies any recent travel denies any pain. Patient is feeling unwell. Patient denies taking flu vaccination this year. States minimal production of her cough. Patient upon my evaluation is tachycardic requiring nasal cannula oxygen. Patient looks unwell. - Related Data Allergies/Adverse Reactions: prochlorperazine edisylate [From Compazine] Allergy (Severe, Verified 10/14/16 03:38) Facial swelling prochlorperazine maleate [From Compazine] Allergy (Severe, Verified 10/14/16 03: 38) Facial swelling verapamil [Verapamil] Allergy (Intermediate, Verified 10/14/16 03:38) Pruritis Past Medical History - Social History Smoking Status: Unknown if Ever Smoked Chew tobacco use (# tins/day): No Frequency of alcohol use: Rare Drug Abuse: None Family History: None Patient has suicidal ideation: No Patient has homicidal ideation: No - Past Medical History Cardiac Medical History: Reports: Hx Hypercholesterolemia, Hx Hypertension Pulmonary Medical History: Reports: Hx Asthma Neurological Medical History: Denies: Hx Seizures Renal/ Medical History: Reports: Hx Kidney Stones. Denies: Hx Peritoneal Dialysis Musculoskeltal Medical History: Reports Hx Musculoskeletal Deformity, Reports Hx Musculoskeletal Trauma Skin Medical History: Reports Hx Eczema, Reports Hx Psoriasis Psychiatric Medical History: Reports: Hx Anxiety, Hx Depression, Hx Post Traumatic Stress Disorder Traumatic Medical History: Reports: Hx Fractures Past Surgical History: Reports: Hx Section, Hx Tonsillectomy, Hx Urinary Tract Surgery. Denies: Hx Pacemaker - Immunizations Hx Diphtheria, Pertussis, Tetanus Vaccination: Yes Review of Systems - Review of Systems Constitutional: No symptoms reported EENT: No symptoms reported Cardiovascular: No symptoms reported Respiratory: Cough, Short of breath, Wheezing Gastrointestinal: No symptoms reported Genitourinary: No symptoms reported Female Genitourinary: No symptoms reported Musculoskeletal: No symptoms reported Skin: No symptoms reported Hematologic/Lymphatic: No symptoms reported Neurological/Psychological: No symptoms reported -: Yes All other systems reviewed and negative Physical Exam - Vital signs Vitals: Temp Pulse Resp BP Pulse Ox 98.9 F 100 19 154/102 H 93 04/02/17 01:12 04/02/17 01:12 04/02/17 01:12 04/02/17 01:12 04/02/17 01:12 Interpretation: Tachycardic, Hypoxic - General General appearance: Appears well, Alert - HEENT Head: Normocephalic, Atraumatic Eyes: Normal Pupils: PERRL - Respiratory Respiratory status: Respiratory distress Chest status: Nontender Breath sounds: Rhonchi, Wheezing Chest palpation: Normal - Cardiovascular Rhythm: Regular Heart sounds: Normal auscultation Murmur: No - Abdominal Inspection: Normal Distension: No distension Bowel sounds: Normal Tenderness: Nontender Organomegaly: No organomegaly - Back Back: Normal, Nontender - Extremities General upper extremity: Normal inspection, Nontender, Normal color, Normal ROM , Normal temperature General lower extremity: Normal inspection, Nontender, Normal color, Normal ROM , Normal temperature, Normal weight bearing. No: Sneha's sign - Neurological Neuro grossly intact: Yes Cognition: Normal Orientation: AAOx4 Augie Coma Scale Eye Opening: Spontaneous Augie Coma Scale Verbal: Oriented Augie Coma Scale Motor: Obeys Commands Augie Coma Scale Total: 15 Speech: Normal Motor strength normal: LUE, RUE, LLE, RLE Sensory: Normal - Psychological Associated symptoms: Normal affect, Normal mood - Skin Skin Temperature: Warm Skin Moisture: Dry Skin Color: Normal Course - Re-evaluation Re-evalutation: 04/02/17 06:04 Patient presentation with fever and respiratory distress concerning for possible underlying infectious etiology. Patient was given a dose of Levaquin. Chest x-ray otherwise my interpretation looks to be normal. Did discuss with hospitalist will admit for COPD exacerbation hypoxia requiring oxygen. - Vital Signs Vital signs: Temp Pulse Resp BP Pulse Ox 98.9 F 100 24 H 124/78 91 L 04/02/17 01:12 04/02/17 01:12 04/02/17 05:31 04/02/17 05:31 04/02/17 05:31 - Laboratory Result Diagrams: 04/02/17 03:52 04/02/17 03:52 Laboratory results interpreted by me: 04/02/17 04/02/17 03:52 03:52 RDW 14.4 H Seg Neutrophils % 80.8 H Glucose 140 H Discharge - Discharge Clinical Impression: COPD (chronic obstructive pulmonary disease) Qualifiers: COPD type: unspecified COPD Qualified Code(s): J44.9 - Chronic obstructive pulmonary disease, unspecified Respiratory failure with hypoxia Qualifiers: Chronicity: unspecified Qualified Code(s): J96.91 - Respiratory failure, unspecified with hypoxia Condition: Good Disposition: ADMITTED OBSERVATION Admitting Provider: Hospitalist - [facility] Admitted: Medical Floor
--- NOTE | 2017-04-02 07:34 | PDOC H&P ---
History of Present Illness Admission Date/PCP: 04/02/17 06:35 Patient complains of: Nonproductive cough and shortness of breath History of Present Illness: ADRIANA MENDOZA is a 41 year old female has been having fever for the last several days she has become more short of breath and so presents to the emergency room here she has found to have an exacerbation of COPD. She was given bronchodilators and antibiotics. As she required supplemental oxygen she was admitted to our service Past Medical History Cardiac Medical History: Reports: Hyperlipidema, Hypertension Pulmonary Medical History: Reports: Asthma Neurological Medical History: Denies: Seizures Skin Medical History: Reports: Eczema, Psoriasis Psychiatric Medical History: Reports: Depression, Post Traumatic Stress Disorder Past Surgical History Past Surgical History: Reports: Section, Tonsillectomy Denies: Pacemaker Social History Information Source: Patient Lives with: Alone Smoking Status: Current Every Day Smoker Last Time Smoked: Yesterday Frequency of Alcohol Use: None Hx Recreational Drug Use: No Drugs: None - Advance Directive Resuscitation Status: Full Code Family History Family History: Reviewed & Not Pertinent Parental Family History Reviewed: Yes Children Family History Reviewed: Yes Sibling(s) Family History Reviewed.: Yes Medication/Allergy Home Medications: Albuterol Sulfate [Ventolin HFA MDI 18 GM] 1 puff IH Q4H PRN 04/21/12 Beclomethasone Dipropionate [Qvar] 1 puff IH TID PRN 04/21/12 Fluticasone Propionate [Flonase Nasal Towson 50 Mcg/Towson 16 gm] 1 spray NASL Q12 04/21/12 Lisinopril [Prinivil 20 mg Tablet] 20 mg TID 04/21/12 Loratadine [Claritin 10 Mg Tablet] 10 mg PO DAILY 04/21/12 Metoprolol Succinate [Toprol Xl 50 mg Tab.sr] 50 mg PO DAILY 04/21/12 Hydrocodone Bit/Acetaminophen [Hydrocodon-Acetaminophen 5-325] 1 each PO Q6 #20 tablet 03/07/16 Ondansetron [Zofran Odt 4 mg Tablet] 4 mg PO Q4HP PRN #30 tab.rapdis 03/07/16 Phenazopyridine HCl [Pyridium 100 Mg Tablet] 100 mg PO TID #15 tablet 03/07/16 Sulfamethoxazole/Trimethoprim [Bactrim Ds Tablet] 1 each PO BID #20 tablet 03/07 Tramadol HCl [Ultram 50 mg Tablet] 50 mg PO ASDIR PRN #20 tablet 10/01/16 Hydrocodone/Acetaminophen [Velpen 5-325 Tablet] 1 each PO Q4 PRN #8 tablet Metronidazole [Flagyl 500 mg Tablet] 500 mg PO BID #14 tablet 10/14/16 Naproxen [Naprosyn 250 Nmg Tablet] 1 tab PO BID #14 tablet 10/14/16 Tramadol HCl 50 mg PO Q6HP PRN #20 tablet 12/30/16 Allergies/Adverse Reactions: prochlorperazine edisylate [From Compazine] Allergy (Severe, Verified 10/14/16 03:38) Facial swelling prochlorperazine maleate [From Compazine] Allergy (Severe, Verified 10/14/16 03: 38) Facial swelling verapamil [Verapamil] Allergy (Intermediate, Verified 10/14/16 03:38) Pruritis Review of Systems Constitutional: ABSENT: chills, fever(s), headache(s), weight gain, weight loss Eyes: ABSENT: visual disturbances Ears: ABSENT: hearing changes Nose, Mouth, and Throat: ABSENT: mouth pain, sore throat Cardiovascular: ABSENT: chest pain, dyspnea on exertion, edema, orthropnea, palpitations Respiratory: PRESENT: as per HPI Gastrointestinal: ABSENT: abdominal pain, constipation, diarrhea, hematemesis, hematochezia, nausea, vomiting Genitourinary: ABSENT: dysuria, hematuria Musculoskeletal: ABSENT: joint swelling Integumentary: ABSENT: rash, wounds Neurological: ABSENT: abnormal gait, abnormal speech, confusion, dizziness, focal weakness, syncope Psychiatric: ABSENT: anxiety, depression, homidical ideation, suicidal ideation Endocrine: ABSENT: cold intolerance, heat intolerance, polydipsia, polyuria Hematologic/Lymphatic: ABSENT: easy bleeding, easy bruising Physical Exam Vital Signs: Temp Pulse Resp BP Pulse Ox 98.9 F 100 22 H 136/74 H 91 L 04/02/17 01:12 04/02/17 01:12 04/02/17 06:39 04/02/17 06:39 04/02/17 05:31 General appearance: PRESENT: no acute distress, cooperative, well-developed, well-nourished Head exam: PRESENT: atraumatic, normocephalic Eye exam: PRESENT: EOMI, PERRLA Ear exam: PRESENT: normal external ear exam Neck exam: PRESENT: full ROM. ABSENT: carotid bruit, JVD, meningismus, thyromegaly Respiratory exam: PRESENT: clear to auscultation brett. ABSENT: rales, rhonchi, wheezes Cardiovascular exam: PRESENT: RRR. ABSENT: diastolic murmur, rubs, systolic murmur GI/Abdominal exam: PRESENT: normal bowel sounds, soft. ABSENT: distended, guarding, mass, organolmegaly, rebound, tenderness Rectal exam: PRESENT: deferred Extremities exam: PRESENT: full ROM. ABSENT: calf tenderness, clubbing, pedal edema Neurological exam: PRESENT: alert, awake, oriented to person, oriented to place , oriented to time, oriented to situation, CN II-XII grossly intact. ABSENT: motor sensory deficit Psychiatric exam: PRESENT: appropriate affect, normal mood. ABSENT: homicidal ideation, suicidal ideation Skin exam: PRESENT: dry, intact, warm. ABSENT: cyanosis, rash Results Laboratory Results: 04/02/17 04/02/17 04/02/17 02:45 03:10 03:52 WBC 7.8 Hgb 15.1 Plt Count 290 Sodium Potassium BUN Creatinine Glucose Ur Leukocyte Esterase NEGATIVE Influenza A (Rapid) NEGATIVE Influenza B (Rapid) NEGATIVE 04/02/17 03:52 WBC Hgb Plt Count Sodium 139.5 Potassium 3.8 BUN 7 Creatinine 0.60 Glucose 140 H Ur Leukocyte Esterase Influenza A (Rapid) Influenza B (Rapid) Impressions: Chest X-Ray 04/02/17 00:49 IMPRESSION: 1. Peribronchial interstitial thickening. This could be seen with viral illness, reactive airways disease, or interstitial pneumonia. Assessment & Plan - Diagnosis (1) Respiratory failure with hypoxia Qualifiers: Chronicity: acute Qualified Code(s): J96.01 - Acute respiratory failure with hypoxia Is this a current diagnosis for this admission?: Yes (2) Tobacco abuse Is this a current diagnosis for this admission?: Yes (3) Tobacco abuse counseling Is this a current diagnosis for this admission?: Yes (4) HTN (hypertension) Qualifiers: Hypertension type: essential hypertension Qualified Code(s): I10 - Essential (primary) hypertension Is this a current diagnosis for this admission?: Yes (5) COPD (chronic obstructive pulmonary disease) Qualifiers: COPD type: unspecified COPD Qualified Code(s): J44.9 - Chronic obstructive pulmonary disease, unspecified Is this a current diagnosis for this admission?: Yes - Time Time Spent: 30 to 50 Minutes Smoking Cessation Education: 3 to 10 minutes - Plan Summary Plan Summary: Patient will be admitted to observation. She will have bronchodilators and will be encouraged to stop smoking while in the hospital and after discharge as well. As she feels shaky from the bronchodilators we will switch her to Xopenex She will receive DVT prophylaxis with low molecular weight heparin She is able to take antibiotics by mouth and will be discharged when she no longer requires supplemental oxygen.
[2017-04-02] MEDS ORDERED: MAGNESIUM HYDROXIDE SUSP 30 ML UDCUP PO PRN (07:35)
[2017-04-02] MEDS: HYDROCODONE BIT/HOMATROPINE 5-1.5 MG TABLET PO PRN ×2 (09:35→17:15)
[2017-04-02] MEDS: FAMOTIDINE 20 MG TABLET PO SCH ×2 (09:36→22:54)
[2017-04-02] MEDS: ENOXAPARIN SODIUM INJ 40 MG/0.4 ML DISP.SYRIN SUBCUT SCH (09:36)
[2017-04-02] MEDS: DOCUSATE SODIUM 100 MG CAPSULE PO SCH (09:36)
[2017-04-02] MEDS: ACETAMINOPHEN 325 MG TABLET PO PRN ×2 (11:28→22:53)
[2017-04-02] MEDS: BENZONATATE 100 MG CAPSULE PO SCH ×2 (13:32→22:54)
[2017-04-02] MEDS: PREDNISONE 20 MG TABLET PO SCH (17:14)
[2017-04-02] MEDS ORDERED: PSYLLIUM SEED-SF 5.85 GM PACKET PO PRN (20:14)
[2017-04-02] MEDS ORDERED: LEVOFLOXACIN 750 MG/D5W RTU 750 MG/150 ML RTUPB IV SCH (22:00)
[2017-04-03] MEDS ORDERED: DIPHENHYDRAMINE HCL 25 MG CAPSULE ONE (00:16)
[2017-04-03] MEDS ORDERED: TRIAMCINOLONE ACETONIDE 0.1% OINT 15 GM TP PRN (00:43)
[2017-04-03] MEDS ORDERED: DIPHENHYDRAMINE HCL 50 MG CAPSULE PO ONE (00:45)
[2017-04-03] MEDS: BENZONATATE 100 MG CAPSULE PO SCH ×3 (05:41→21:53)
[2017-04-03] MEDS: ENOXAPARIN SODIUM INJ 40 MG/0.4 ML DISP.SYRIN SUBCUT SCH (10:31)
[2017-04-03] MEDS: DOCUSATE SODIUM 100 MG CAPSULE PO SCH (10:32)
[2017-04-03] MEDS: FAMOTIDINE 20 MG TABLET PO SCH ×2 (10:32→21:53)
[2017-04-03] MEDS: PREDNISONE 20 MG TABLET PO SCH ×2 (10:32→17:14)
[2017-04-03] MEDS: LEVALBUTEROL HCL NEB 1.25 MG/3 ML AMPUL NEB PRN ×2 (10:33→15:49)
--- NOTE | 2017-04-03 12:00 | EKG REPORT ---
SEVERITY:- BORDERLINE ECG - SINUS RHYTHM BORDERLINE INFERIOR Q WAVES BORDERLINE T ABNORMALITIES, INFERIOR LEADS : Confirmed by: Luba King MD 03-Apr-2017 11:59:49
[2017-04-03] MEDS: HYDROCODONE BIT/HOMATROPINE 5-1.5 MG TABLET PO PRN (12:30)
[2017-04-03] MEDS: NICOTINE 21 MG/24 HR PATCH.TD24 TD SCH (15:44)
--- NOTE | 2017-04-03 17:02 | PDOC PROGRESS REPORT ---
Subjective Progress Note for:: 04/03/17 Subjective:: The patient is a 41-year-old female with tobacco dependency. She was admitted to the hospital with acute hypoxic respiratory failure due to COPD with exacerbation. She does feel that her cough is breaking up, but, she does not feel that she is capable of being discharged at this time. She states that she just cannot manage her disease at home and that if she is discharged she will likely come right back to the emergency department. Reason For Visit: COPD EXACERBATION Physical Exam Vital Signs: Temp Pulse Resp BP Pulse Ox 98.2 F 81 18 137/76 H 98 04/03/17 15:40 04/03/17 15:49 04/03/17 15:49 04/03/17 15:40 04/03/17 15:49 Intake & Output 04/02/17 04/03/17 04/04/17 06:59 06:59 06:59 Intake Total 240 1700 Output Total 300 1800 Balance -60 -100 Weight 96.5 kg Additional comments: The patient appears to be her stated age. She does not appear to be in any distress. Her cognition and mentation are appropriate. Her facial appearance is normal. She does have diffuse wheezing which is most pronounced on and inspiration and not expiration. Her cardiac exam is regular without murmurs, gallops or rubs. The abdomen is soft and flat. Bowel sounds are noted in all 4 quadrants. She does not have guarding or rebound noted. There are no hernias or masses present. The lower extremities are warm to touch without edema. Skin is warm, dry and intact without lesions or rashes. Results Laboratory Results: 04/03/17 14:00 Stool Occult Blood NEGATIVE Impressions: Chest X-Ray 04/02/17 00:49 IMPRESSION: 1. Peribronchial interstitial thickening. This could be seen with viral illness, reactive airways disease, or interstitial pneumonia. Assessment & Plan - Diagnosis (1) COPD (chronic obstructive pulmonary disease) Qualifiers: COPD type: unspecified COPD Qualified Code(s): J44.9 - Chronic obstructive pulmonary disease, unspecified Is this a current diagnosis for this admission?: Yes (2) HTN (hypertension) Qualifiers: Hypertension type: essential hypertension Qualified Code(s): I10 - Essential (primary) hypertension Is this a current diagnosis for this admission?: Yes (3) Respiratory failure with hypoxia Qualifiers: Chronicity: acute Qualified Code(s): J96.01 - Acute respiratory failure with hypoxia Is this a current diagnosis for this admission?: Yes (4) Tobacco abuse Is this a current diagnosis for this admission?: Yes - Time Time Spent with patient: 15-24 minutes - Inpatient Certification Medical Necessity: Need for Nebulizer Therapy and Monitoring of Response - Plan Summary Plan Summary: The patient is receiving care with bronchodilators, systemic corticosteroids, antitussives, and antibiotics. She appears to be getting better, however, she states that she is unable to be discharged at this time because she cannot manage her disease at home without coming back to the emergency department. Therefore, I told her that I would reevaluate her in the morning but I anticipate discharge in the morning. She has received counseling to stop smoking.
[2017-04-03] MEDS ORDERED: ALBUTEROL SULFATE 0.083% NEB 2.5 MG/3 ML AMPUL NEB PRN (17:23)
[2017-04-03] MEDS: IPRATROPIUM/ALBUTEROL 0.5-2.5 MG/3 ML AMPUL NEB SCH (19:31)
[2017-04-03] MEDS ORDERED: LEVOFLOXACIN 750 MG TABLET PO SCH (22:00)
[2017-04-04] MEDS ORDERED: FUROSEMIDE 20 MG TABLET PO PRN ×2 (05:17→15:00)
[2017-04-04] MEDS ORDERED: PSYLLIUM HUSK 660 GM PO PRN (05:17)
[2017-04-04] MEDS: BENZONATATE 100 MG CAPSULE PO SCH ×3 (05:54→22:16)
[2017-04-04] MEDS ORDERED: PSYLLIUM SEED-SF 5.85 GM PACKET PO PRN (08:50)
[2017-04-04] MEDS: IPRATROPIUM/ALBUTEROL 0.5-2.5 MG/3 ML AMPUL NEB SCH ×3 (08:56→19:42)
[2017-04-04] MEDS: AMLODIPINE BESYLATE 10 MG TABLET PO SCH (10:00)
[2017-04-04] MEDS ORDERED: (PENDING PHARMACY ID) (Lisinopril/Hydrochlorothiazide [Lisinopril-Hctz 20-25 Mg Tab] 1 TAB PO SCH (10:00)
[2017-04-04] MEDS ORDERED: METOPROLOL TARTRATE 100 MG TABLET PO SCH ×2 (10:00)
[2017-04-04] MEDS: ENOXAPARIN SODIUM INJ 40 MG/0.4 ML DISP.SYRIN SUBCUT SCH (10:00)
[2017-04-04] MEDS: DOCUSATE SODIUM 100 MG CAPSULE PO SCH (10:00)
[2017-04-04] MEDS: PREDNISONE 20 MG TABLET PO SCH (10:01)
[2017-04-04] MEDS: HYDROCHLOROTHIAZIDE 25 MG TABLET PO SCH (10:01)
[2017-04-04] MEDS: FAMOTIDINE 20 MG TABLET PO SCH ×2 (10:01→22:16)
[2017-04-04] MEDS: LISINOPRIL 10 MG TABLET PO SCH (10:01)
[2017-04-04] MEDS: METOPROLOL TARTRATE 50 MG TABLET PO SCH ×2 (10:02→22:17)
--- NOTE | 2017-04-04 11:11 | RADIOLOGY REPORT (SQ) ---
EXAM DESCRIPTION: CHEST PA/LAT COMPLETED DATE/TIME: 04/04/2017 11:00 am REASON FOR STUDY: pain in right lung COMPARISON: 04/02/2017. EXAM PARAMETERS: NUMBER OF VIEWS: two views TECHNIQUE: Digital Frontal and Lateral radiographic views of the chest acquired. RADIATION DOSE: NA LIMITATIONS: none FINDINGS: LUNGS AND PLEURA: There is increasing left perihilar infiltrate. Right lung relatively cl ear. No pleural effusion or pneumothorax. MEDIASTINUM AND HILAR STRUCTURES: No masses or contour abnormalities. HEART AND VASCULAR STRUCTURES: Heart normal size. No evidence for failure. BONES: No acute findings. HARDWARE: None in the chest. OTHER: No other significant finding. IMPRESSION: INCREASING LEFT PERIHILAR INFILTRATE CONCERNING FOR DEVELOPING PNEUMONIA. TECHNICAL DOCUMENTATION: JOB ID: [id number] [employer]- All Rights Reserved
--- NOTE | 2017-04-04 11:17 | Physician Advisory Note ---
Physician Advisor ProgressNote .: [facility], I have reviewed the medical record for this patient. Physician Advisor Statement: Please document clearly if physician felt pt had a clinical need for staying PM in hospital. (Current notes could be interpreted to mean that attending was going to d/c pt on 04/03 but pt simply did not want to go, & threatened to return to ED if d/c'd 04/03.) Status: if pt clinically needed to stay in hospital for 2nd MN on 04/03, or attending had clinical concerns that required close monitoring for this additional night in hospital, then pt was appropriate to make Inpatient as of , & should be made Inpatient today even if d/c'd today. - However, if pt was only kept the 2nd MN because of pt convenience-type factors, then she should not be made Inpatient. Thanks! CK
--- NOTE | 2017-04-04 14:23 | PDOC PROGRESS REPORT ---
Subjective Progress Note for:: 04/04/17 Subjective:: The patient is a 41-year-old female with tobacco dependency. She was admitted to the hospital with acute hypoxic respiratory failure due to COPD with exacerbation. Yesterday, she was weaned to room air. We discussed the possibility of discharge, however, she did not feel well enough to go home. This morning, when I examined the patient she was complaining of increasing right sided chest pain. Chest x-ray actually shows worsening infiltrate in the left perihilar region. This is despite oral Levaquin. Unfortunately, he is not safe to discharge the patient at this time. I will convert her to inpatient stay and begin intravenous antibiotic therapy. I will also resume corticosteroids intravenously. Reason For Visit: COPD EXACERBATION Physical Exam Vital Signs: Temp Pulse Resp BP Pulse Ox 98.4 F 86 20 140/83 H 96 04/04/17 11:44 04/04/17 11:44 04/04/17 11:44 04/04/17 11:44 04/04/17 11:44 Intake & Output 04/03/17 04/04/17 04/05/17 06:59 06:59 06:59 Intake Total 240 1700 Output Total 300 1800 Balance -60 -100 Weight 96.5 kg 92.3 kg Additional comments: The patient appears to be a healthy 41-year-old female. She does not appear to be in acute distress. Her mentation and cognition are normal. Her facial appearance is unremarkable. Her lungs demonstrated scattered wheezes this morning. The wheezing was primarily in the posterior lung dukes. Cardiac exam demonstrates a regular rate and rhythm. Patient does not have murmurs, gallops or rubs. The abdomen is soft and flat. Bowel sounds are present. There is no guarding or rebound noted and there are no hernias or masses present. The lower extremities do not demonstrate any edema. The skin is warm , dry and intact without lesions or rashes. Results Laboratory Results: 04/03/17 14:00 Stool Occult Blood NEGATIVE Impressions: Chest X-Ray 04/04/17 00:00 IMPRESSION: INCREASING LEFT PERIHILAR INFILTRATE CONCERNING FOR DEVELOPING PNEUMONIA. Assessment & Plan - Diagnosis (1) COPD (chronic obstructive pulmonary disease) Qualifiers: COPD type: unspecified COPD Qualified Code(s): J44.9 - Chronic obstructive pulmonary disease, unspecified Is this a current diagnosis for this admission?: Yes Plan: Continue therapy with bronchodilators. I will resume corticosteroids intravenously. (2) HTN (hypertension) Qualifiers: Hypertension type: essential hypertension Qualified Code(s): I10 - Essential (primary) hypertension Is this a current diagnosis for this admission?: Yes Plan: Continue amlodipine, lisinopril, metoprolol. (3) Respiratory failure with hypoxia Qualifiers: Chronicity: acute Qualified Code(s): J96.01 - Acute respiratory failure with hypoxia Is this a current diagnosis for this admission?: Yes Plan: Resolving. Oxygen has been weaned to off. (4) Tobacco abuse Is this a current diagnosis for this admission?: Yes Plan: Patient has been counseled to quit. (5) Pneumonia Is this a current diagnosis for this admission?: Yes Plan: The patient is not responding to oral antibiotics. It is possible that the patient has a viral pneumonia. She did test negative for the flu, but, other pathogens certainly are possible. At this point time I will stop the oral Levaquin and switch to intravenous therapy to cover both hospital-acquired and community-acquired organisms which will include gram-positive coverage, gram- negative coverage and atypical coverage as well as anaerobic coverage. - Time Time Spent with patient: 25-34 minutes - Inpatient Certification Medical Necessity: Failure to Improve With Outpatient Therapy, Need for IV Antibiotics, Risk of Complication if Not Cared For in Hospital
[2017-04-04] MEDS ORDERED: VANCOMYCIN HCL 0 MG in DEXTROSE 5%-WATER 250 ML IV NR (14:30)
[2017-04-04] MEDS ORDERED: ALBUTEROL SULFATE 0.083% NEB 2.5 MG/3 ML AMPUL NEB PRN (15:00)
[2017-04-04] MEDS ORDERED: MAGNESIUM HYDROXIDE SUSP 30 ML UDCUP PO PRN (15:30)
[2017-04-04] MEDS: PIPERACILLIN SODIUM/TAZOBACTAM 3.375 GM in NORMAL SALINE 100 ML IV SCH ×2 (16:18→22:15)
[2017-04-04] MEDS: HYDROCODONE BIT/HOMATROPINE 5-1.5 MG TABLET PO PRN ×2 (16:28→23:12)
[2017-04-04] MEDS: NICOTINE 21 MG/24 HR PATCH.TD24 TD SCH (16:28)
[2017-04-04] MEDS: VANCOMYCIN HCL 1,250 MG in DEXTROSE 5%-WATER 250 ML IV SCH (17:10)
[2017-04-04] MEDS ORDERED: DIPHENHYDRAMINE HCL 25 MG CAPSULE ONE (17:36)
[2017-04-04] MEDS ORDERED: DIPHENHYDRAMINE HCL 25 MG CAPSULE PO PRN (17:57)
[2017-04-04] MEDS ORDERED: DOXYCYCLINE HYCLATE INJ 100 MG VIAL IV SCH (18:00)
[2017-04-04] MEDS: SIMVASTATIN 40 MG TABLET PO SCH (22:16)
[2017-04-04] MEDS: DOXYCYCLINE HYCLATE 100 MG in DEXTROSE 5%-WATER 250 ML IV SCH (23:01)
[2017-04-05] MEDS: VANCOMYCIN HCL 1,250 MG in DEXTROSE 5%-WATER 250 ML IV SCH ×3 (01:31→17:52)
[2017-04-05] MEDS: PIPERACILLIN SODIUM/TAZOBACTAM 3.375 GM in NORMAL SALINE 100 ML IV SCH ×4 (03:40→22:31)
[2017-04-05] MEDS: HYDROCODONE BIT/HOMATROPINE 5-1.5 MG TABLET PO PRN ×2 (06:05→22:32)
[2017-04-05] MEDS: BENZONATATE 100 MG CAPSULE PO SCH ×3 (06:05→22:32)
[2017-04-05 06:59] LABS: ABSOLUTE BASOPHILS # (AUTO) 0.1 10^3/uL (0.0-0.2); ABSOLUTE LYMPHOCYTES (AUTO) 4.6 10^3/uL (0.5-4.7); ABSOLUTE MONOCYTES (AUTO) 1.2 10^3/uL (0.1-1.4); BASOPHILS % (AUTO) 0.4 % (0-2); EOSINOPHILS % (AUTO) 0.2 % (0-6); HEMATOCRIT 44.2 % (36.0-47.0); HEMOGLOBIN 14.7 g/dL (12.0-15.5); LYMPHOCYTES % (AUTO) 28.9 % (13-45); MEAN CORPUSCULAR HEMOGLOBIN 29.6 pg (27.0-33.4); MEAN CORPUSCULAR HGB CONC 33.1 g/dL (32.0-36.0); MEAN CORPUSCULAR VOLUME 89 fl (80-97); MONOCYTES % (AUTO) 7.8 % (3-13); PLATELET COUNT 313 10^3/uL (150-450); RED BLOOD COUNT 4.95 10^6/uL (3.72-5.28); RED CELL DISTRIBUTION WIDTH 14.4 % (11.5-14.0); SEGMENTED NEUTROPHILS % (AUTO) 62.7 % (42-78); TOTAL CELLS COUNTED % (AUTO) 100 %; WHITE BLOOD COUNT 15.9 10^3/uL (4.0-10.5)
[2017-04-05 07:12] LABS: ANION GAP 14 (5-19); BLOOD UREA NITROGEN 17 mg/dL (7-20); CALCIUM 9.7 mg/dL (8.4-10.2); CARBON DIOXIDE 22 mmol/L (22-30); CHLORIDE 103 mmol/L (98-107); GLUCOSE 78 mg/dL (75-110); MAGNESIUM 1.9 mg/dL (1.6-2.3); POTASSIUM 4.4 mmol/L (3.6-5.0); SODIUM 139.3 mmol/L (137-145)
[2017-04-05] MEDS: IPRATROPIUM/ALBUTEROL 0.5-2.5 MG/3 ML AMPUL NEB SCH ×3 (08:37→21:06)
[2017-04-05] MEDS: ENOXAPARIN SODIUM INJ 40 MG/0.4 ML DISP.SYRIN SUBCUT SCH (10:00)
[2017-04-05] MEDS: AMLODIPINE BESYLATE 10 MG TABLET PO SCH (10:01)
[2017-04-05] MEDS: DOCUSATE SODIUM 100 MG CAPSULE PO SCH (10:01)
[2017-04-05] MEDS: FAMOTIDINE 20 MG TABLET PO SCH ×2 (10:01→22:31)
[2017-04-05] MEDS: LISINOPRIL 10 MG TABLET PO SCH (10:01)
[2017-04-05] MEDS: HYDROCHLOROTHIAZIDE 25 MG TABLET PO SCH (10:01)
[2017-04-05] MEDS: DOXYCYCLINE HYCLATE 100 MG in DEXTROSE 5%-WATER 250 ML IV SCH ×2 (11:02→22:57)
[2017-04-05] MEDS: METOPROLOL TARTRATE 50 MG TABLET PO SCH ×2 (11:02→22:32)
--- NOTE | 2017-04-05 12:13 | PDOC PROGRESS REPORT ---
Subjective Progress Note for:: 04/05/17 Subjective:: The patient is a 41-year-old female with tobacco dependency. She was admitted to the hospital with acute hypoxic respiratory failure due to COPD with exacerbation. Tuesday, she was weaned to room air. We discussed the possibility of discharge, however, she did not feel well enough to go home. Tuesday, when I examined the patient she was complaining of increasing right sided chest pain. Chest x-ray actually showed worsening infiltrate in the left perihilar region. This is despite oral Levaquin. Yesterday, the patient was switched back to IV antibiotics and IV steroids. Today, she states that her cough is less prominent, but, she still having pleuritic chest pain. Also, she is complaining of a sore throat and trouble swallowing. This is a new symptom for her. She does not have pain with swallowing. Reason For Visit: COPD WITH EXACERBATION Physical Exam Vital Signs: Temp Pulse Resp BP Pulse Ox 98.0 F 72 16 114/71 98 04/05/17 07:43 04/05/17 08:37 04/05/17 08:37 04/05/17 07:43 04/05/17 08:37 Intake & Output 04/04/17 04/05/17 04/06/17 06:59 06:59 06:59 Intake Total 900 Balance 900 Weight 95 kg Additional comments: The patient appears to be in better spirits today. She is noted to have a frequent cough during our interview. Her facial appearance is unremarkable. Her oropharynx is benign without exudates or erythema. Her neck is supple. Her lungs do demonstrate end expiratory wheezing which is bilateral. The cardiac exam is regular without murmurs, gallops or rubs. The abdomen is soft, flat and benign. Bowel sounds are present. The skin is unremarkable without lesions or rashes. Results Laboratory Results: 04/05/17 06:28 04/05/17 06:28 04/05/17 04/05/17 06:28 06:28 WBC 15.9 H RBC 4.95 Hgb 14.7 Hct 44.2 MCV 89 MCH 29.6 MCHC 33.1 RDW 14.4 H Plt Count 313 Seg Neutrophils % 62.7 Lymphocytes % 28.9 Monocytes % 7.8 Eosinophils % 0.2 Basophils % 0.4 Absolute Neutrophils 10.0 H Absolute Lymphocytes 4.6 Absolute Monocytes 1.2 Absolute Eosinophils 0.0 Absolute Basophils 0.1 Sodium 139.3 Potassium 4.4 Chloride 103 Carbon Dioxide 22 Anion Gap 14 BUN 17 Creatinine 0.61 Est GFR ( Amer) > 60 Est GFR (Non-Af Amer) > 60 Glucose 78 Calcium 9.7 Magnesium 1.9 Impressions: Chest X-Ray 04/04/17 00:00 IMPRESSION: INCREASING LEFT PERIHILAR INFILTRATE CONCERNING FOR DEVELOPING PNEUMONIA. Assessment & Plan - Diagnosis (1) COPD (chronic obstructive pulmonary disease) Qualifiers: COPD type: unspecified COPD Qualified Code(s): J44.9 - Chronic obstructive pulmonary disease, unspecified Is this a current diagnosis for this admission?: Yes Plan: Continue therapy with bronchodilators. Continue corticosteroids intravenously. (2) HTN (hypertension) Qualifiers: Hypertension type: essential hypertension Qualified Code(s): I10 - Essential (primary) hypertension Is this a current diagnosis for this admission?: Yes Plan: Continue amlodipine, lisinopril, metoprolol. (3) Respiratory failure with hypoxia Qualifiers: Chronicity: acute Qualified Code(s): J96.01 - Acute respiratory failure with hypoxia Is this a current diagnosis for this admission?: Yes Plan: Resolving. Oxygen has been weaned to off. (4) Tobacco abuse Is this a current diagnosis for this admission?: Yes Plan: Patient has been counseled to quit. (5) Pneumonia Is this a current diagnosis for this admission?: Yes Plan: The patient is not responding to oral antibiotics. It is possible that the patient has a viral pneumonia. She did test negative for the flu, but, other pathogens certainly are possible. At this point time I will stop the oral Levaquin and switch to intravenous therapy to cover both hospital-acquired and community-acquired organisms which will include gram-positive coverage, gram- negative coverage and atypical coverage as well as anaerobic coverage. (6) Leukocytosis Is this a current diagnosis for this admission?: Yes Plan: I believe that this is more due to corticosteroids than infection, but, both are possible. Will follow. - Time Time Spent with patient: 15-24 minutes - Inpatient Certification Medical Necessity: Need for IV Antibiotics - Failure to improve with oral therapy
[2017-04-05] MEDS ORDERED: INFLUENZA ADLT QUAD (36MOS+) 2017-18 VAC 0.5 ML SYR IM PRN (12:41)
[2017-04-05] MEDS: METHYLPREDNISOLONE INJ 40 MG/1 ML SDV IV SCH (13:41)
[2017-04-05] MEDS: NICOTINE 21 MG/24 HR PATCH.TD24 TD SCH (16:49)
[2017-04-05] MEDS: BENZOCAINE/MENTHOL SORE THROAT LOZENGE BUCCAL PRN ×2 (16:49→22:57)
[2017-04-05] MEDS: SIMVASTATIN 40 MG TABLET PO SCH (22:32)
[2017-04-06] MEDS: METHYLPREDNISOLONE INJ 40 MG/1 ML SDV IV SCH (01:27)
[2017-04-06] MEDS: VANCOMYCIN HCL 1,250 MG in DEXTROSE 5%-WATER 250 ML IV SCH ×2 (01:27→08:27)
[2017-04-06] MEDS: PIPERACILLIN SODIUM/TAZOBACTAM 3.375 GM in NORMAL SALINE 100 ML IV SCH (03:21)
[2017-04-06] MEDS: BENZONATATE 100 MG CAPSULE PO SCH ×3 (05:17→22:45)
[2017-04-06] MEDS: IPRATROPIUM/ALBUTEROL 0.5-2.5 MG/3 ML AMPUL NEB SCH ×3 (07:34→20:08)
[2017-04-06 08:30] LABS: VANCOMYCIN,TROUGH 15.3 ug/mL (5.0-20.0)
[2017-04-06] MEDS: HYDROCHLOROTHIAZIDE 25 MG TABLET PO SCH (09:58)
[2017-04-06] MEDS: LISINOPRIL 10 MG TABLET PO SCH (09:59)
[2017-04-06] MEDS: ENOXAPARIN SODIUM INJ 40 MG/0.4 ML DISP.SYRIN SUBCUT SCH (09:59)
[2017-04-06] MEDS: METOPROLOL TARTRATE 50 MG TABLET PO SCH ×2 (09:59→22:45)
[2017-04-06] MEDS: DOCUSATE SODIUM 100 MG CAPSULE PO SCH (09:59)
[2017-04-06] MEDS: FAMOTIDINE 20 MG TABLET PO SCH ×2 (09:59→22:45)
[2017-04-06] MEDS: AMLODIPINE BESYLATE 10 MG TABLET PO SCH (09:59)
--- NOTE | 2017-04-06 10:59 | PDOC PROGRESS REPORT ---
Subjective Progress Note for:: 04/06/17 Subjective:: The patient is a 41-year-old female with tobacco dependency. She was admitted to the hospital with acute hypoxic respiratory failure due to COPD with exacerbation. Tuesday, she was weaned to room air. We discussed the possibility of discharge, however, she did not feel well enough to go home. Tuesday, when I examined the patient she was complaining of increasing right sided chest pain. Chest x-ray actually showed worsening infiltrate in the left perihilar region. This was despite oral Levaquin. Tuesday, the patient was switched back to IV antibiotics and IV steroids. Today, she states that her cough is less prominent, but, she still having pleuritic chest pain. Also, she is complaining of a sore throat and trouble swallowing. This is a new symptom for her. She does not have pain with swallowing. Reason For Visit: COPD WITH EXACERBATION Physical Exam Vital Signs: Temp Pulse Resp BP Pulse Ox 97.8 F 75 20 129/71 H 99 04/06/17 08:37 04/06/17 08:37 04/06/17 08:37 04/06/17 08:37 04/06/17 08:37 Intake & Output 04/05/17 04/06/17 04/07/17 06:59 06:59 06:59 Intake Total 900 1820 Balance 900 1820 Weight 95 kg 91.8 kg Additional comments: The patient appears to be doing better today. Her sore throat is better. Her cough is improved. She has less pain with inspiration. Her facial appearance is unremarkable. Her lungs are actually clear today without wheezing. Her cardiac exam is regular without murmurs, gallops or rubs. The abdomen is soft and flat. Bowel sounds are present in the lower quadrants. The lower extremities are without edema and the skin is warm, dry and intact without lesions or rashes. Results Laboratory Results: 04/05/17 06:28 04/06/17 07:50 04/06/17 07:50 Creatinine 0.57 Est GFR ( Amer) > 60 Est GFR (Non-Af Amer) > 60 Impressions: Chest X-Ray 04/04/17 00:00 IMPRESSION: INCREASING LEFT PERIHILAR INFILTRATE CONCERNING FOR DEVELOPING PNEUMONIA. Assessment & Plan - Diagnosis (1) COPD (chronic obstructive pulmonary disease) Qualifiers: COPD type: unspecified COPD Qualified Code(s): J44.9 - Chronic obstructive pulmonary disease, unspecified Is this a current diagnosis for this admission?: Yes Plan: Continue therapy with bronchodilators. Continue corticosteroids. IV Solu- Medrol has been discontinued. The patient is now on prednisone. She will need a short burst of prednisone upon discharge. (2) HTN (hypertension) Qualifiers: Hypertension type: essential hypertension Qualified Code(s): I10 - Essential (primary) hypertension Is this a current diagnosis for this admission?: Yes Plan: Continue amlodipine, lisinopril, metoprolol. (3) Respiratory failure with hypoxia Qualifiers: Chronicity: acute Qualified Code(s): J96.01 - Acute respiratory failure with hypoxia Is this a current diagnosis for this admission?: Yes Plan: Resolving. Oxygen has been weaned to off. (4) Tobacco abuse Is this a current diagnosis for this admission?: Yes Plan: Patient has been counseled to quit. (5) Pneumonia Is this a current diagnosis for this admission?: Yes Plan: The patient tested negative for influenza. I do suspect that she may have an underlying viral pneumonia since she did not respond to oral Levaquin. However , she is clinically improved. Therefore, I am going to discontinue intravenous antibiotics. I have initiated Augmentin therapy. I anticipate discharge tomorrow. She must have a follow-up chest x-ray in 2-4 weeks to ensure clearing of the infiltrates. If the infiltrates do not clear she will require subspecialty evaluation with a supervisor dehydrogenation. (6) Leukocytosis Is this a current diagnosis for this admission?: Yes Plan: I believe that this is more due to corticosteroids than infection, but, both are possible. Will follow. Repeat labs are ordered for tomorrow morning. - Time Time Spent with patient: 15-24 minutes - Inpatient Certification Medical Necessity: Other - Failure to improve on oral Augmentin. Patient will require additional monitoring overnight to make sure that she does not decompensate since intravenous therapies have been discontinued. - Plan Summary Plan Summary: The patient has been switched to all oral therapies. I anticipate discharge on , April 07. Please note that upon discharge the patient will need to get a follow-up chest x-ray in 2-4 weeks. Preferentially, this can be done at 4 weeks. If the infiltrates persist she should get subspecialty evaluation with a supervisor dehydrogenation.
[2017-04-06] MEDS ORDERED: PREDNISONE 20 MG TABLET PO ONE ×2 (11:15→14:30)
[2017-04-06] MEDS: AMOXICILLIN TR/POT CLAVULANATE 500-125 MG TAB PO SCH ×2 (12:17→16:56)
[2017-04-06] MEDS: NICOTINE 21 MG/24 HR PATCH.TD24 TD SCH (16:55)
[2017-04-06] MEDS: HYDROCODONE BIT/HOMATROPINE 5-1.5 MG TABLET PO PRN (16:55)
[2017-04-06] MEDS: BENZOCAINE/MENTHOL SORE THROAT LOZENGE BUCCAL PRN ×2 (16:56→22:45)
[2017-04-06] MEDS: SIMVASTATIN 40 MG TABLET PO SCH (22:45)
[2017-04-07] MEDS: BENZONATATE 100 MG CAPSULE PO SCH ×3 (06:34→23:42)
[2017-04-07] MEDS: BENZOCAINE/MENTHOL SORE THROAT LOZENGE BUCCAL PRN ×2 (06:43→12:04)
[2017-04-07 07:08] LABS: HEMATOCRIT 45.1 % (36.0-47.0); MEAN CORPUSCULAR HEMOGLOBIN 29.4 pg (27.0-33.4); MEAN CORPUSCULAR HGB CONC 33.3 g/dL (32.0-36.0); MEAN CORPUSCULAR VOLUME 88 fl (80-97); PLATELET COUNT 378 10^3/uL (150-450); RED BLOOD COUNT 5.11 10^6/uL (3.72-5.28); RED CELL DISTRIBUTION WIDTH 13.9 % (11.5-14.0); WHITE BLOOD COUNT 24.9 10^3/uL (4.0-10.5)
[2017-04-07 07:22] LABS: ANION GAP 10 (5-19); BLOOD UREA NITROGEN 20 mg/dL (7-20); CARBON DIOXIDE 25 mmol/L (22-30); CHLORIDE 104 mmol/L (98-107); GLUCOSE 104 mg/dL (75-110); POTASSIUM 4.2 mmol/L (3.6-5.0); SODIUM 139.1 mmol/L (137-145)
[2017-04-07] MEDS: IPRATROPIUM/ALBUTEROL 0.5-2.5 MG/3 ML AMPUL NEB SCH ×3 (07:34→19:50)
[2017-04-07 07:53] LABS: ABSOLUTE LYMPHOCYTES# (MANUAL) 4.2 10^3/uL (0.5-4.7); ABSOLUTE NEUTROPHILS# (MANUAL) 19.7 10^3/uL (1.7-8.2); BASOPHILS % (MANUAL) 0 % (0-2); EOSINOPHILS % (MANUAL) 0 % (0-6); LYMPHOCYTES % (MANUAL) 17 % (13-45); MONOCYTES % (MANUAL) 4 % (3-13); SEGMENTED NEUTROPHILS % (MAN) 79 % (42-78); TOTAL CELLS COUNTED 100
[2017-04-07 07:54] LABS: PLATELET COMMENT ADEQUATE; RBC MORPHOLOGY COMMENT NORMO-CYTIC/CHROMIC; TOXIC GRANULATION SLIGHT
--- NOTE | 2017-04-07 08:54 | EKG REPORT ---
SEVERITY:- BORDERLINE ECG - SINUS RHYTHM BORDERLINE INFERIOR Q WAVES BORDERLINE T ABNORMALITIES, INFERIOR LEADS : Confirmed on behalf of: Papito Dove MD 07-Apr-2017 08:54:22
[2017-04-07] MEDS: METOPROLOL TARTRATE 50 MG TABLET PO SCH ×2 (09:37→23:39)
[2017-04-07] MEDS: AMOXICILLIN TR/POT CLAVULANATE 500-125 MG TAB PO SCH ×3 (09:37→16:13)
[2017-04-07] MEDS: LISINOPRIL 10 MG TABLET PO SCH (09:37)
[2017-04-07] MEDS: DOCUSATE SODIUM 100 MG CAPSULE PO SCH (09:37)
[2017-04-07] MEDS: HYDROCHLOROTHIAZIDE 25 MG TABLET PO SCH (09:37)
[2017-04-07] MEDS: AMLODIPINE BESYLATE 10 MG TABLET PO SCH (09:37)
[2017-04-07] MEDS: FAMOTIDINE 20 MG TABLET PO SCH (09:38)
[2017-04-07] MEDS: ENOXAPARIN SODIUM INJ 40 MG/0.4 ML DISP.SYRIN SUBCUT SCH (09:38)
[2017-04-07] MEDS ORDERED: PREDNISONE 20 MG TABLET PO SCH (10:00)
[2017-04-07] MEDS: NICOTINE 21 MG/24 HR PATCH.TD24 TD SCH (16:13)
--- NOTE | 2017-04-07 17:21 | PDOC PROGRESS REPORT ---
Subjective Progress Note for:: 04/07/17 Subjective:: Patient complains of feeling lumps in her throat and hurts when swallowing. Review of systems All organ systems evaluated and negative except as in subjective All laboratories and significant diagnostics have been reviewed Reason For Visit: COPD WITH EXACERBATION Physical Exam Vital Signs: Temp Pulse Resp BP Pulse Ox 98.4 F 88 18 145/75 H 99 04/07/17 08:51 04/07/17 08:51 04/07/17 08:51 04/07/17 08:51 04/07/17 08:51 Intake & Output 04/06/17 04/07/17 04/08/17 06:59 06:59 06:59 Intake Total 1820 600 Balance 1820 600 Weight 91.8 kg 94.5 kg General appearance: PRESENT: no acute distress, cooperative, obese Head exam: PRESENT: atraumatic, normocephalic Eye exam: PRESENT: EOMI, PERRLA Ear exam: PRESENT: normal external ear exam Mouth exam: PRESENT: moist Neck exam: PRESENT: full ROM. ABSENT: JVD, lymphadenopathy, tenderness Respiratory exam: PRESENT: clear to auscultation brett Cardiovascular exam: PRESENT: RRR. ABSENT: diastolic murmur, systolic murmur Vascular exam: PRESENT: normal capillary refill GI/Abdominal exam: PRESENT: normal bowel sounds, soft. ABSENT: tenderness Extremities exam: PRESENT: full ROM. ABSENT: joint swelling, pedal edema Musculoskeletal exam: PRESENT: ambulatory Neurological exam: PRESENT: alert, awake, oriented to person, oriented to place , oriented to time, oriented to situation, CN II-XII grossly intact Psychiatric exam: PRESENT: appropriate affect, normal mood Skin exam: PRESENT: intact, normal color Results Laboratory Results: 04/07/17 06:15 04/07/17 06:15 04/07/17 04/07/17 06:15 06:15 WBC 24.9 H RBC 5.11 Hgb 15.0 Hct 45.1 MCV 88 MCH 29.4 MCHC 33.3 RDW 13.9 Plt Count 378 Seg Neutrophils % Not Reportable Lymphocytes % Not Reportable Monocytes % Not Reportable Eosinophils % Not Reportable Basophils % Not Reportable Absolute Neutrophils Not Reportable Absolute Lymphocytes Not Reportable Absolute Monocytes Not Reportable Absolute Eosinophils Not Reportable Absolute Basophils Not Reportable Sodium 139.1 Potassium 4.2 Chloride 104 Carbon Dioxide 25 Anion Gap 10 BUN 20 Creatinine 0.56 Est GFR ( Amer) > 60 Est GFR (Non-Af Amer) > 60 Glucose 104 Calcium 10.0 Impressions: Chest X-Ray 04/04/17 00:00 IMPRESSION: INCREASING LEFT PERIHILAR INFILTRATE CONCERNING FOR DEVELOPING PNEUMONIA. Assessment & Plan - Diagnosis (1) COPD (chronic obstructive pulmonary disease) Qualifiers: COPD type: unspecified COPD Qualified Code(s): J44.9 - Chronic obstructive pulmonary disease, unspecified Is this a current diagnosis for this admission?: Yes Plan: Continue current management (2) HTN (hypertension) Qualifiers: Hypertension type: essential hypertension Qualified Code(s): I10 - Essential (primary) hypertension Is this a current diagnosis for this admission?: Yes Plan: Stable (3) Pneumonia Qualifiers: Pneumonia type: due to unspecified organism Laterality: unspecified laterality Lung location: unspecified part of lung Qualified Code(s): J18.9 - Pneumonia, unspecified organism Is this a current diagnosis for this admission?: Yes Plan: Change to zitromax since augmenting maybe causing issuse with throat (4) Respiratory failure with hypoxia Qualifiers: Chronicity: acute Qualified Code(s): J96.01 - Acute respiratory failure with hypoxia Is this a current diagnosis for this admission?: Yes Plan: Resolved (5) Tobacco abuse Is this a current diagnosis for this admission?: Yes Plan: Educated to quit (6) Pharyngitis Qualifiers: Pharyngitis/tonsillitis etiology: unspecified etiology Qualified Code(s): J02.9 - Acute pharyngitis, unspecified Is this a current diagnosis for this admission?: Yes Plan: Add diflucan and nasal decongestant - Time Time Spent with patient: 15-24 minutes Medications reviewed and adjusted accordingly: Yes Anticipated discharge: Home Within: within 24 hours - Inpatient Certification Based on my medical assessment, after consideration of the patient's comorbidities, presenting symptoms, or acuity I expect that the services needed warrant INPATIENT care.: Yes I certify that my determination is in accordance with my understanding of Medicare's requirements for reasonable and necessary INPATIENT services [42 CFR 412.3e].: Yes Medical Necessity: Need Close Monitoring Due to Risk of Patient Decompensation
[2017-04-07] MEDS ORDERED: FLUCONAZOLE 100 MG TABLET PO SCH (18:00)
[2017-04-07] MEDS: ACETAMINOPHEN 325 MG TABLET PO PRN (20:32)
[2017-04-07] MEDS: SIMVASTATIN 40 MG TABLET PO SCH (23:42)
[2017-04-07] MEDS: OXYMETAZOLINE HCL 0.05% NASAL SPRAY 15 ML BOTTLE NASL SCH (23:43)
[2017-04-08] MEDS: FAMOTIDINE 20 MG TABLET PO SCH ×2 (00:24→09:26)
[2017-04-08] MEDS: BENZOCAINE/MENTHOL SORE THROAT LOZENGE BUCCAL PRN (04:22)
[2017-04-08] MEDS: BENZONATATE 100 MG CAPSULE PO SCH ×2 (06:49→14:21)
[2017-04-08 07:12] LABS: HEMATOCRIT 45.7 % (36.0-47.0); MEAN CORPUSCULAR HEMOGLOBIN 29.4 pg (27.0-33.4); MEAN CORPUSCULAR HGB CONC 32.9 g/dL (32.0-36.0); MEAN CORPUSCULAR VOLUME 90 fl (80-97); PLATELET COUNT 393 10^3/uL (150-450); RED CELL DISTRIBUTION WIDTH 14.3 % (11.5-14.0); WHITE BLOOD COUNT 25.7 10^3/uL (4.0-10.5)
[2017-04-08] MEDS: IPRATROPIUM/ALBUTEROL 0.5-2.5 MG/3 ML AMPUL NEB SCH ×2 (07:43→13:29)
[2017-04-08 08:02] LABS: ABSOLUTE LYMPHOCYTES# (MANUAL) 4.9 10^3/uL (0.5-4.7); ABSOLUTE NEUTROPHILS# (MANUAL) 19.8 10^3/uL (1.7-8.2); ANISOCYTOSIS SLIGHT; BAND NEUTROPHILS % (MANUAL) 3 % (3-5); BASOPHILS % (MANUAL) 0 % (0-2); EOSINOPHILS % (MANUAL) 0 % (0-6); LYMPHOCYTES % (MANUAL) 16 % (13-45); METAMYELOCYTES % (MANUAL) 2 % (0); MONOCYTES % (MANUAL) 4 % (3-13); SEGMENTED NEUTROPHILS % (MAN) 71 % (42-78); TOTAL CELLS COUNTED 100; TOXIC GRANULATION SLIGHT
[2017-04-08 08:03] LABS: MYELOCYTES % (MANUAL) 1 % (0); PLATELET COMMENT ADEQUATE
[2017-04-08] MEDS: LISINOPRIL 10 MG TABLET PO SCH (09:26)
[2017-04-08] MEDS: METOPROLOL TARTRATE 50 MG TABLET PO SCH (09:26)
[2017-04-08] MEDS: AMLODIPINE BESYLATE 10 MG TABLET PO SCH (09:26)
[2017-04-08] MEDS: HYDROCHLOROTHIAZIDE 25 MG TABLET PO SCH (09:26)
[2017-04-08] MEDS: ENOXAPARIN SODIUM INJ 40 MG/0.4 ML DISP.SYRIN SUBCUT SCH (09:26)
[2017-04-08] MEDS: OXYMETAZOLINE HCL 0.05% NASAL SPRAY 15 ML BOTTLE NASL SCH (09:28)
[2017-04-08] MEDS ORDERED: AZITHROMYCIN 250 MG TABLET PO SCH (10:00)
[2017-04-08 12:36] LABS: PATH REVIEW PATHOLOGIST REVIEWED
[2017-04-08] MEDS: DOCUSATE SODIUM 100 MG CAPSULE PO SCH (13:06)
[2017-04-08 14:08] VITALS: BP 144/94
--- NOTE | 2017-04-08 17:38 | PDOC DISCHARGE SUMMARY ---
General - Admit/Disc Date/PCP Admission Date/Primary Care Provider: 04/04/17 14:29 Discharge Date: 04/08/17 - Discharge Diagnosis (1) Pneumonia Is this a current diagnosis for this admission?: Yes (2) Respiratory failure with hypoxia Is this a current diagnosis for this admission?: Yes (3) COPD (chronic obstructive pulmonary disease) Is this a current diagnosis for this admission?: Yes (4) HTN (hypertension) Is this a current diagnosis for this admission?: Yes (5) Tobacco abuse Is this a current diagnosis for this admission?: Yes (6) Pharyngitis Is this a current diagnosis for this admission?: Yes - Additional Information Resuscitation Status: Full Code Discharge Diet: Cardiac Discharge Activity: Activity As Tolerated Prescriptions: Azithromycin [Zithromax 250 mg Tablet] 500 mg PO DAILY #3 tablet Benzonatate [Tessalon Perles 100 mg Capsule] 100 mg PO Q8 #30 capsule Fluconazole [Diflucan 100 mg Tablet] 200 mg PO QPM #7 tablet Hydralazine HCl 50 mg PO BID #60 tablet Metoprolol Succinate [Toprol XL 100 mg Tablet] 100 mg PO DAILY #30 tab.sr.24h Nicotine [Nicoderm 21 mg/24 Hr Transderm Patch] 1 each TD DAILY@1600 #30 patch.td24 Home Medications: Albuterol Sulfate [Proair HFA Inhalation Aerosol 8.5 gm MDI] 2 puff PO ASDIR PRN 04/02/17 Amlodipine Besylate [Norvasc 10 mg Tablet] 10 mg PO DAILY 04/02/17 Fexofenadine HCl [Aminta] 180 mg PO DAILY 04/02/17 Fluticasone Propionate [Flonase Nasal Meredith 50 Mcg/Meredith 16 gm] 2 sprays NASL Q12 04/02/17 Furosemide [Lasix 20 mg Tablet] 20 mg PO DAILY PRN 04/02/17 Lisinopril/Hydrochlorothiazide [Lisinopril-Hctz 20-25 mg Tab] 1 tab PO DAILY Psyllium Husk [Metamucil] 660 gm PO BIDP PRN 04/02/17 Simvastatin [Zocor 40 mg Tablet] 40 mg PO QHS 04/02/17 Azithromycin [Zithromax 250 mg Tablet] 500 mg PO DAILY #3 tablet 04/08/17 Benzonatate [Tessalon Perles 100 mg Capsule] 100 mg PO Q8 #30 capsule 04/08/17 Fluconazole [Diflucan 100 mg Tablet] 200 mg PO QPM #7 tablet 04/08/17 Hydralazine HCl 50 mg PO BID #60 tablet 04/08/17 Metoprolol Succinate [Toprol XL 100 mg Tablet] 100 mg PO DAILY #30 tab.sr.24h Nicotine [Nicoderm 21 mg/24 Hr Transderm Patch] 1 each TD DAILY@1600 #30 patch.td24 04/08/17 History of Present Illness History of Present Illness: ADRIANA MENDOZA is a 41 year old female had been having fever for the last several days and she become more short of breath. She presented to the emergency room here she has found to have an exacerbation of COPD and hypoxic. She was given bronchodilators and antibiotics. The patient was admitted under the hospitalist service for further management Hospital Course Hospital Course: Patient was admitted under the hospitalist service. She was treated with nebulizer treatment, steroids, mucolytic, antitussive and antibiotic. With intervention rendered patient was able to be weaned off oxygen to room air. Of concern on the day of discharge is that her blood pressure still elevated however there is a very strong stress component. We adjusted antihypertensive regimen and and she was placed on Toprol-XL and added hydralazine. She has been advised as to follow-up with her primary care provider. Patient has also been encouraged and educated about quitting smoking and appears to be motivated to quit. A prescription for nicotine patches was given. Patient had been given a work excuse to return back to work on April 18. Since patient had achieved maximum benefit of hospitalization stay prompted to discharge under stable condition Physical Exam Vital Signs: Temp Pulse Resp BP Pulse Ox 98.1 F 80 18 137/84 H 99 04/08/17 08:29 04/08/17 08:29 04/08/17 08:29 04/08/17 08:29 04/08/17 08:29 Intake & Output 04/07/17 04/08/17 04/09/17 06:59 06:59 06:59 Intake Total 600 400 Balance 600 400 Weight 94.5 kg 95.4 kg General appearance: PRESENT: no acute distress, cooperative, obese Head exam: PRESENT: atraumatic, normocephalic Eye exam: PRESENT: conjunctiva pink, EOMI, PERRLA Ear exam: PRESENT: normal external ear exam Mouth exam: PRESENT: moist Neck exam: PRESENT: full ROM, JVD. ABSENT: lymphadenopathy, tenderness Respiratory exam: PRESENT: clear to auscultation brett Cardiovascular exam: PRESENT: RRR. ABSENT: diastolic murmur, systolic murmur Vascular exam: PRESENT: normal capillary refill GI/Abdominal exam: PRESENT: normal bowel sounds, soft. ABSENT: tenderness Extremities exam: PRESENT: full ROM. ABSENT: joint swelling, pedal edema Musculoskeletal exam: PRESENT: ambulatory Neurological exam: PRESENT: alert, awake, oriented to person, oriented to place , oriented to time, oriented to situation, CN II-XII grossly intact Psychiatric exam: PRESENT: appropriate affect, normal mood Skin exam: PRESENT: intact, normal color Results Laboratory Results: 04/08/17 06:00 04/07/17 06:15 04/08/17 06:00 WBC 25.7 H RBC 5.10 Hgb 15.0 Hct 45.7 MCV 90 MCH 29.4 MCHC 32.9 RDW 14.3 H Plt Count 393 Seg Neutrophils % Not Reportable Lymphocytes % Not Reportable Monocytes % Not Reportable Eosinophils % Not Reportable Basophils % Not Reportable Absolute Neutrophils Not Reportable Absolute Lymphocytes Not Reportable Absolute Monocytes Not Reportable Absolute Eosinophils Not Reportable Absolute Basophils Not Reportable Impressions: Chest X-Ray 04/04/17 00:00 IMPRESSION: INCREASING LEFT PERIHILAR INFILTRATE CONCERNING FOR DEVELOPING PNEUMONIA. Plan Discharge Plan: Discharge home Time Spent: Less than 30 Minutes
== END 2017-04-08 14:40 | disposition home or self-care (01) | DRG 193 ==
LOC: ER 00:13 → EH 06:35 → 5 15:51 → 2N 04-03 22:48 → OBSVTOIN 04-04 14:29
PROVIDERS: ADMIT Internal Medicine; ATTEND Internal Medicine
PROC: 3E0F73Z Introduction of Anti-inflammatory into Respiratory Tract, Via Natural or Artificial Opening (ICD-10-PCS; 2017-04-04)
PROC: 3E0234Z Introduction of Serum, Toxoid and Vaccine into Muscle, Percutaneous Approach (ICD-10-PCS; principal; 2017-04-08)
DX: J12.9 Viral pneumonia, unspecified (principal); J96.01 Acute respiratory failure with hypoxia; J44.1 Chronic obstructive pulmonary disease with (acute) exacerbation; J44.0 Chronic obstructive pulmonary disease with (acute) lower respiratory infection; I10 Essential (primary) hypertension; E78.5 Hyperlipidemia, unspecified; F43.10 Post-traumatic stress disorder, unspecified; F32.9 Major depressive disorder, single episode, unspecified; J02.9 Acute pharyngitis, unspecified; F17.200 Nicotine dependence, unspecified, uncomplicated; Z23 Encounter for immunization; Z71.6 Tobacco abuse counseling
CPT/HCPCS: 36415; 71046; 80048; 80053; 80202; 81001; 82272; 82565; 83735; 85025; 87040; 87804; 90686; 93005; 93010; 94640; 94799; 96365; 96367; 96372; 99285; G0378; J1650; J1956; J2543; J2920; J3370; J3475; J3490; J7030; J7060; J7512; J7620

== ENCOUNTER 2018-05-05 14:13 | Emergency (ER) | payer SELFPAY ==
[2018-05-05 14:43] VITALS: BP 199/103
--- NOTE | 2018-05-05 15:23 | ER Document Report ---
ED Medical Screen (RME) - General Chief Complaint: Ear Pain Stated Complaint: EAR PAIN Time Seen by Provider: 05/05/18 15:07 Notes: Patient says that she is having a bloody discharge from her right ear. Tuesday, she had an ear ache. Then yesterday, she started having drainage from the ear. She is also feeling lightheaded and dizzy and some nausea and vomited. She also has a cough productive of yellow sputum. Patient says her hearing in the right ear is muffled. Patient has not had any fever. Patient has severe hypertension and has been out of her medications for her blood pressure for 3 months. She also has high cholesterol. Her current medications for her blood pressure are hydralazine, metoprolol, lisinopril, and Norvasc. She is been out of all of these medicines for 3 months. She is been out of town due to her father's in the past couple of months. Patient is a cigarette smoker. TRAVEL OUTSIDE OF THE [place] IN LAST 30 DAYS: No - Related Data Allergies/Adverse Reactions: prochlorperazine edisylate [From Compazine] Allergy (Severe, Verified 10/14/16 03:38) Facial swelling prochlorperazine maleate [From Compazine] Allergy (Severe, Verified 10/14/16 03:38) Facial swelling verapamil [Verapamil] Allergy (Intermediate, Verified 10/14/16 03:38) Pruritis Past Medical History - Social History Cigarette use (# per day): Yes - Past Medical History Cardiac Medical History: Reports: Hx Hypercholesterolemia, Hx Hypertension Pulmonary Medical History: Reports: Hx Asthma Renal/ Medical History: Reports: Hx Kidney Stones. Denies: Hx Peritoneal Dialysis Musculoskeltal Medical History: Reports Hx Musculoskeletal Deformity, Reports Hx Musculoskeletal Trauma Skin Medical History: Reports Hx Eczema, Reports Hx Psoriasis Psychiatric Medical History: Reports: Hx Anxiety, Hx Depression, Hx Post Traumatic Stress Disorder Traumatic Medical History: Reports: Hx Fractures Past Surgical History: Reports: Hx Section, Hx Tonsillectomy, Hx Urinary Tract Surgery. Denies: Hx Pacemaker - Immunizations Hx Diphtheria, Pertussis, Tetanus Vaccination: Yes History of Influenza Vaccine for 12/2016 - 05/2017 Season: No Review of Systems - Review of Systems Notes: REVIEW OF SYSTEMS: CONSTITUTIONAL : Denies fever. EENT: Denies eye, nose or mouth or throat pain or other symptoms. See HPI regarding ear. CARDIOVASCULAR: Denies chest pain. RESPIRATORY: Denies cough, chest congestion, or shortness of breath. GASTROINTESTINAL: Denies abdominal pain or nausea, vomiting, or diarrhea. GENITOURINARY: Denies difficulty or painful urinating, urinary frequency, blood in urine. MUSCULOSKELETAL: Denies back or neck pain. Denies joint pain or swelling. SKIN: Denies rash or skin lesions. NEUROLOGICAL: Denies LOC or altered mental status. Some headache. Denies sensory loss or motor deficits. ALL OTHER SYSTEMS REVIEWED AND NEGATIVE. Physical Exam - Vital signs Vitals: Temp Pulse Resp BP Pulse Ox 98.5 F 92 20 207/102 H 97 05/05/18 14:20 05/05/18 14:20 05/05/18 14:20 05/05/18 14:20 05/05/18 14:20 Interpretation: Hypertensive Notes: PHYSICAL EXAMINATION: GENERAL: Well-appearing, in no acute distress. Blood pressure 199/103 at this time at patient's bedside. HEAD: Atraumatic, normocephalic. EYES: Pupils equal round and reactive to light, extraocular movements intact. ENT: oropharynx clear without exudates. Moist mucous membranes. Crusty, dry, purulent drainage from the right ear. No blood seen. Cannot visualize an actual perforation at this time. NECK: Normal range of motion, supple. LUNGS: Breath sounds clear and equal bilaterally. HEART: Regular rate and rhythm without murmurs. ABDOMEN: Soft, nontender. No guarding or rebound. No masses. BACK: No tenderness throughout entire back. EXTREMITIES: Normal range of motion without pain. NEUROLOGICAL: Normal speech, normal gait. Normal sensory, motor, and reflex exams. Awake, alert, and oriented x3. Cranial nerves normal. PSYCH: Normal mood, normal affect. SKIN: Warm, dry, no rashes. Course - Re-evaluation Re-evalutation: 05/05/18 21:31 Patient was put on amoxicillin for her ear infection. She was given pres criptions for all of her blood pressure medications. Gave her a month supply of all those medicines and advised her to follow-up with her primary care provider during that time to get established for managing her blood pressure. - Vital Signs Vital signs: Temp Pulse Resp BP Pulse Ox 98.5 F 81 18 199/103 H 99 05/05/18 14:20 05/05/18 14:42 05/05/18 14:42 05/05/18 14:42 05/05/18 14:42 Doctor's Discharge - Discharge Clinical Impression: Perforated eardrum, Hypertension Condition: Stable Disposition: HOME, SELF-CARE Additional Instructions: HIGH BLOOD PRESSURE REQUIRING TREATMENT: Your blood pressure is high. This is called "hypertension." Today's reading was 199/103 (normal is less than 140/90). Your history and exam suggest that this is not a temporary problem. You need treatment of your blood pressure. If left untreated, high blood pressure greatly increases your risk of heart attack and stroke. Please don't ignore this problem. If you have blood pressure medicine but aren't using it regularly, start taking it again. Some simple things you can do to help are: Get some aerobic exercise for at least 20 minutes on a daily basis. (See your doctor before beginning any new exercise program.) Eat a low-fat diet. Lose excess weight. Avoid salty foods and avoid adding salt to any of the foods you eat. Avoid diet pills, decongestants, "energizing" herbs, and other medicines that elevate blood pressure. There are many different medicines that treat blood pressure. If your medication causes unpleasant side effects, call your doctor. There are others you can try. Treating hypertension is a life-long investment in your health. HYDROCHLOROTHIAZIDE: Hydrochlorothiazide is a diuretic medication. Diuretics are often called "water pills." The medicine flushes excess salt and water from the body. Diuretics are used for fluid retention (such as heart failure, cirrhosis, or lung disease) and for blood pressure control. Often hydrochlorothiazide is combined with other medicines in the same pill. Most patients prefer to take the medicine in the morning. Hydrochlorothiazide makes extra urine, which can be a problem if you take the pi ll at night. Diuretics make you lose potassium. Sometimes a good diet with plenty of fruit is enough to replace it. Sometimes a potassium supplement is necessary. Or, hydrochlorothiazide may be combined with medicines that prevent potassium loss. We usually recommend a blood potassium test in a few weeks. Contact your doctor if you develop extreme fatigue, muscle weakness, lethargy, confusion, or palpitations. ANGIOTENSIN CONVERTING ENZYME INHIBITOR MEDICATION: "EDVIN inhibitor" drugs are used to lower high blood pressure (or to reduce the "work" of the heart in patients with heart failure). These drugs block an enzyme that makes your blood vessels constrict and makes you retain salt. The result is lower blood pressure. EDVIN inhibitors cause few side effects. The most common side effect is a dry nagging cough. Occasionally, lightheadedness may occur while you get used to the medicine. Some patients may retain extra potassium (this is a problem if you are taking potassium supplements, potassium-containing salt substitutes, or a potassium-retaining drug such as triamterene, spironolactone, or amiloride). If you are taking lithium, the lithium level must be rechecked after starting an EDVIN inhibitor. EDVIN inhibitors should NOT be used during . Contact the doctor or return if you develop severe lightheadedness, wheeze, weakness, palpitations or other new symptoms. CALCIUM CHANNEL BLOCKERS: A medication of the calcium channel isa type has been prescribed for you. Examples of this type of medicine are Calan, Isoptin, Procardia, and Cardizem. These medicines have a variety of uses, including prevention of angina attacks, treatment of blood pressure, regulation of certain heart rhythm problems, and prevention of migraine headaches. Calcium channel blockers work by interfering with the flow of calcium in cell membranes. This results in dilation of blood vessels, and slowing of electrical conduction in the heart. A slight dizziness (due to a fall in blood pressure) may occur with the first dose, and sometimes even with later doses. This may make you prone to dizziness if you stand up suddenly. Call the doctor if lightheadedness is severe, or if you develop palpitations, shortness of breath, or any other new or alarming symptoms. BETA BLOCKERS: You have been given a prescription for a beta-isa medication. This class of drugs is used for many purposes, including angina, high blood pressure, heart rhythm disturbances, tremors, and migraines. The medication works by interfering with the effects of the sympathetic nervous system (the sympathetic system has adrenaline-like effects of constricting blood vessels, increasing heart rate, and increasing blood pressure). This medication is usually well-tolerated. However, some patients have side effects such as fatigue, depression, or dizziness. Persons with asthma may develop wheezing from this medicine. Contact your doctor if you are bothered by any side effects. Do not take any cold or allergy medication without first consulting your doctor. Do not stop the medicine without consulting your doctor, as a "rebound" worsening of your condition can result. Perforated Eardrum You have a ruptured eardrum. The ruptured eardrum alone is usually not serious. It will probably heal completely within a week or two. If the perforation is too large to heal, further treatment may be necessary. Antibiotics are given if the perforation resulted from infection, or if the middle ear cavity may have been contaminated at the time of perforation. Do not allow any water to get into your ear until the doctor has told you the eardrum is healed. Use an earplug or Vaseline-covered cotton ball for showers. DO NOT SWIM. Follow-up examination to assure complete healing and complete return of hearing will be necessary, and is usually done in one week. If there is purulent drainage, increasing pain, or fever, call the doctor or return at once for re-evaluation. OTITIS MEDIA: You have a middle ear infection (otitis media). This is usually a complication of a cold or sore throat. The middle ear cavity becomes filled with infection. Pressure and stretching of the ear drum cause pain. Antibiotics are required. A 10 day course is usually prescribed. A decong estant may be recommended if you have a "runny nose." You may need anesthetic drops or other pain medication. A follow-up exam may be recommended to make sure the infection has completely cleared. If the ear begins to drain, it means the ear drum has ruptured. This will usually heal spontaneously. However, it means you should keep the ear dry until re-examined by a doctor. Call the physician or return for examination at once if there is severe headache, stiff neck, confusion, increasing fever, or dizziness. You should improve significantly within two days. If you're not better, call the doctor. AMOXICILLIN: Amoxicillin is a member of the penicillin family. It covers the germs likely to cause ear, bronchial, and urinary infections better than plain penicillin. Amoxicillin can be taken without regard to meals. Nausea after taking the medication is rare, but can occur. Diarrhea can occur, particularly in small children. Vaginal yeast infections and oral thrush in infants are also common. Contact your physician if these problems occur. Allergy to penicillins is common. If you have had an allergic reaction to any drug of the penicillin family, you should never take any other penicillin. Notify your doctor at once if you develop hives, itching, swelling, faintness, or shortness of breath. Less serious side effects can include nausea or diar deborah. USE OF ACETAMINOPHEN (Tylenol): Acetaminophen may be taken for pain relief or fever control. It's much safer than aspirin, offering a wider range of "safe" dosages. It is safe during . Some brand names are Tylenol, Panadol, Datril, Anacin 3, Tempra, and Liquiprin. Acetaminophen can be repeated every four hours. The following are maximum recommended dosages: WEIGHT Dose Drops Elixir Chewable(80mg) (LBS.) drprs=droppers tsp=teaspoon >89 pounds or adults 650 mg to 900 mg Acetaminophen can be repeated every four hours. Maximum dose not to exceed 4000 mg a day. These maximum recommended dosages are slightly higher than the dosages written on the product container, but these dosages are very safe and below the toxic dosage for acetaminophen. FOLLOW-UP CARE: If you have been referred to a physician for follow-up care, call the physicians office for an appointment as you were instructed or within the next two days. If you experience worsening or a significant change in your symptoms, notify the physician immediately or return to the Emergency Department at any time for re-evaluation. Follow-up with a primary care physician to recheck your blood pressure in about 10 days to 2 weeks. Take the antibiotic prescribed for 7 days until it is finished. Return if you have worsening drainage or pain in the right ear or running high fevers. Prescriptions: Amlodipine Besylate [Norvasc 10 mg Tablet] 10 mg PO DAILY #30 tablet Amoxicillin 1 tab PO TID #20 tab Hydralazine HCl [Apresoline 50 mg Tablet] 50 mg PO BID #60 tablet Lisinopril/Hydrochlorothiazide [Lisinopril-Hctz 20-25 mg Tab] 1 each PO DAILY #30 tablet Metoprolol Succinate [Toprol XL 100 mg Tablet] 100 mg PO DAILY #30 tab.sr.24h
== END 2018-05-05 15:35 | disposition home or self-care (01) ==
LOC: ER 14:13
DX: H72.91 Unspecified perforation of tympanic membrane, right ear (principal); I10 Essential (primary) hypertension; H92.01 Otalgia, right ear; H92.11 Otorrhea, right ear; R42 Dizziness and giddiness; R11.2 Nausea with vomiting, unspecified; R05 Cough; Z79.899 Other long term (current) drug therapy; F17.210 Nicotine dependence, cigarettes, uncomplicated; J45.909 Unspecified asthma, uncomplicated
CPT/HCPCS: 99282

== ENCOUNTER 2018-09-12 08:58 | Emergency (ER) | payer MEDICAID ==
[2018-09-12] MEDS ORDERED: LISINOPRIL 10 MG TABLET PO ONE (10:16)
[2018-09-12] MEDS ORDERED: ONDANSETRON 4 MG TAB.RAPDIS PO ONE (10:17)
--- NOTE | 2018-09-12 10:22 | ER Document Report ---
ED General - General Chief Complaint: Toothache Stated Complaint: TOOTH PAIN, VOMITING,NAUSEA Time Seen by Provider: 09/12/18 09:38 Primary Care Provider: KAMRON JAIME MD [COMMUNITY BASED STAFF] - Follow up as needed TRAVEL OUTSIDE OF THE [place] IN LAST 30 DAYS: No - HPI Notes: 42-year-old female presents the ED for complaints of having right upper dental pain for the last 2 days. She is having nerve pain after she has been exposed nerve, states she used [id number] tooth filling to help but she still having pain. Patient states she 'nasty substance" last day which has made her feel nauseous. Patient does have a history of retention, states she is going to be running out of her medication and will not be home in [place] for 1 month, is requesting refills of medication. Denies any trauma. Patient did not take her blood pressure medication today. Denies fevers, chills, chest pain,palpitations, shortness of breath, dyspnea, nausea, vomiting, diarrhea, ab dominal pain, hematuria,blurred vision, double vision, loss of vision, speech changes, LH, dizziness, syncope, headaches, wheezing, ST, URI, neck pain, weakness, bowel or bladder dysfunction, saddle anesthesia, numbness or tingling in bilateral upper or lower extremities equally, muscle paralysis, weakness in bilateral upper or lower extremities equally or rash. - Related Data Allergies/Adverse Reactions: prochlorperazine edisylate [From Compazine] Allergy (Severe, Verified 09/12/18 09:06) Facial swelling prochlorperazine maleate [From Compazine] Allergy (Severe, Verified 09/12/18 09:06) Facial swelling verapamil [Verapamil] Allergy (Intermediate, Verified 09/12/18 09:06) Pruritis Past Medical History - General Information source: Patient - Social History Smoking Status: Current Every Day Smoker Family History: Reviewed & Not Pertinent - Past Medical History Cardiac Medical History: Reports: Hx Hypercholesterolemia, Hx Hypertension Pulmonary Medical History: Reports: Hx Asthma Neurological Medical History: Denies: Hx Seizures Renal/ Medical History: Reports: Hx Kidney Stones. Denies: Hx Peritoneal Dialysis Musculoskeletal Medical History: Reports Hx Musculoskeletal Deformity, Reports Hx Musculoskeletal Trauma Skin Medical History: Reports Hx Eczema, Reports Hx Psoriasis Psychiatric Medical History: Reports: Hx Anxiety, Hx Depression, Hx Post Traumatic Stress Disorder Traumatic Medical History: Reports: Hx Fractures Past Surgical History: Reports: Hx Section, Hx Tonsillectomy, Hx Urinary Tract Surgery. Denies: Hx Pacemaker - Immunizations Hx Diphtheria, Pertussis, Tetanus Vaccination: Yes Review of Systems - Review of Systems Constitutional: No symptoms reported EENT: See HPI Cardiovascular: No symptoms reported Respiratory: No symptoms reported Gastrointestinal: No symptoms reported Genitourinary: No symptoms reported Female Genitourinary: No symptoms reported Musculoskeletal: No symptoms reported Skin: No symptoms reported Hematologic/Lymphatic: No symptoms reported Neurological/Psychological: No symptoms reported Physical Exam - Vital signs Vitals: Temp Pulse Resp BP Pulse Ox 98 F 92 16 189/126 H 96 09/12/18 09:06 09/12/18 09:06 09/12/18 09:06 09/12/18 09:06 09/12/18 09:06 - Notes Notes: PHYSICAL EXAMINATION: GENERAL: Well-appearing, well-nourished and in no acute distress. HEAD: Atraumatic, normocephalic. EYES: Pupils equal round and reactive to light, extraocular movements intact, conjunctiva are normal. ENT: Nares patent, oropharynx clear without exudates. Moist mucous membranes. #18 gingiva with swelling, erythema and induration. No drainage or open wounds. No fluctuance. No facial swelling. Poor oral dentition, right upper jaw with extensive dental caries, no definite swelling or effusion. NECK: Normal range of motion, supple without lymphadenopathy LUNGS: Breath sounds clear to auscultation bilaterally and equal. No wheezes rales or rhonchi. HEART: Regular rate and rhythm without murmurs ABDOMEN: Soft, nontender, nondistended abdomen. No guarding, no rebound. No masses appreciated. Female : deferred Musculoskeletal: Normal range of motion, no pitting or edema. No cyanosis. NEUROLOGICAL: Cranial nerves grossly intact. Normal speech, normal gait. Normal sensory, motor exams PSYCH: Normal mood, normal affect. SKIN: Warm, Dry, normal turgor, no rashes or lesions noted. Course - Re-evaluation Re-evalutation: 09/12/18 13:07 42-year-old female afebrile vital stable no distress for evaluation of dental pain as well as elevated blood pressure. Patient did not take her blood pressure medication today and does take amlodipine, Lasix, lisinoprilhydrochlorothiazide, metoprolol for her blood pressure management which is in [place]. Pt is not having any active chest pain or SOB duration of ER visit. patient states she has not seen a dentist in years. Patient put a temporary filling in her mouth, states this is not helping. Patient does smoke on a daily basis. Patient given 1 g Rocephin IM, 60 mg of Toradol, CBC CMP unremarkable for any acute findings anemia, renal hepatic issues, potassium is normal, slight leukocytosis. Presentation is most consistent with likely an infected tooth. Airway is patent. Vitals within normal limits. Patient is able swallow without any difficulty. There is no significant facial swelling. No evidence of Nehemias angina, apical abscess, or airway obstruction. Patient will be started on antibiotics. After performing a Medical Screening Examination, I estimate there is LOW risk for RUPTURED ESOPHAGUS, PNEUMOTHORAX, PULMONARY EMBOLISM, ACUTE CORONARY SYNDROME, OR THORACIC AORTIC DISSECTION, thus I consider the discharge disposition reasonable. I have reevaluated this nafisa ent multiple times and no significant life threatening changes are noted. The patient and I have discussed the diagnosis and risks, and we agree with discharging home with close follow-up. We also discussed returning to the Emergency Department immediately if new or worsening symptoms occur. We have also discussed the symptoms which are most concerning (e.g., bloody sputum, worsening pain or shortness of breath) that necessitate immediate return. I've instructed to follow-up with dentistry as earliest ability for definitive management. At this time will discharge with return precautions and follow-up recommendations. Verbal discharge instructions given a the bedside and opportunity for questions given. Medication warnings reviewed. Patient is in agreement with this plan and has verbalized understanding of return precautions and the need for primary care follow-up in the next 24-72 hours. 09/12/18 13:09 - Vital Signs Vital signs: Temp Pulse Resp BP Pulse Ox 98 F 92 16 195/110 H 96 09/12/18 09:06 09/12/18 09:06 09/12/18 09:06 09/12/18 10:16 09/12/18 09:06 - Laboratory Result Diagrams: 09/12/18 11:00 09/12/18 11:00 Laboratory results interpreted by me: 09/12/18 11:00 WBC 12.8 H Absolute Neutrophils 9.2 H Discharge - Discharge Clinical Impression: Dental caries, Tobacco abuse Condition: Stable Disposition: HOME, SELF-CARE Instructions: [facility], Clindamycin ([facility]), Dentist, High Blood Pressure ([facility]), High Blood Pressure, Requiring Treatment ([facility]), Toothache ([facility]) Additional Instructions: Toothache Your pain is due to dental decay. The tooth must be repaired in order for you to feel better. You will, therefore, be referred to a dentist. Severe swelling or drainage around a tooth usually means a deep dental abscess. This also requires evaluation and treatment by the dentist, but antibiotics may be prescribed while awaiting dental treatment. You should be rechecked immediately if you develop major swelling of the face, increasing pain, a lump in the jaw or gums, headache, or fever. Ibuprofen Ibuprofen is an excellent, safe drug for pain control. In addition, it has potent antiinflammatory effects which are beneficial, especially in the treatment of injuries, arthritis, or tendonitis. It's best to take ibuprofen with food. Persons with ulcer disease or allergy to aspirin should notify their physician of this before taking ibuprofen. Take the medication exactly as prescribed. Don't take additional doses unless instructed to do so by your doctor. If you develop wheezing, shortness of breath, hives, faintness, stomach pain, vomiting, or dark black stools, return for re-evaluation at once. Prescriptions: Ibuprofen [Ibu] 800 mg PO Q6HP PRN #20 tablet PRN Reason: Amlodipine Besylate [Norvasc 10 mg Tablet] 10 mg PO DAILY #30 tablet Clindamycin HCl 300 mg PO Q6H #28 capsule Furosemide [Lasix 20 mg Tablet] 20 mg PO QAM #30 tablet Lisinopril/Hydrochlorothiazide [Lisinopril-Hctz 20-25 mg Tab] 1 each PO DAILY #30 tablet Metoprolol Succinate 100 mg PO DAILY #30 tab.er.24h Forms: Smoking Cessation Education Referrals: KAMRON JAIME MD [COMMUNITY BASED STAFF] - Follow up as needed
[2018-09-12] MEDS: KETOROLAC TROMETHAMINE 60 MG/2 ML SDV IM ONE ×2 (10:48→13:06)
[2018-09-12 11:18] LABS: ABSOLUTE BASOPHILS # (AUTO) 0.1 10^3/uL (0.0-0.2); ABSOLUTE EOSINOPHILS # (AUTO) 0.3 10^3/uL (0.0-0.6); ABSOLUTE LYMPHOCYTES (AUTO) 2.6 10^3/uL (0.5-4.7); ABSOLUTE MONOCYTES (AUTO) 0.6 10^3/uL (0.1-1.4); ABSOLUTE NEUT (AUTO) 9.2 10^3/uL (1.7-8.2); BASOPHILS % (AUTO) 0.7 % (0-2); EOSINOPHILS % (AUTO) 2.3 % (0-6); HEMATOCRIT 45.6 % (36.0-47.0); HEMOGLOBIN 15.5 g/dL (12.0-15.5); LYMPHOCYTES % (AUTO) 20.3 % (13-45); MEAN CORPUSCULAR HEMOGLOBIN 30.9 pg (27.0-33.4); MEAN CORPUSCULAR VOLUME 91 fl (80-97); PLATELET COUNT 397 10^3/uL (150-450); RED BLOOD COUNT 5.02 10^6/uL (3.72-5.28); RED CELL DISTRIBUTION WIDTH 13.9 % (11.5-14.0); SEGMENTED NEUTROPHILS % (AUTO) 71.7 % (42-78); TOTAL CELLS COUNTED % (AUTO) 100 %; WHITE BLOOD COUNT 12.8 10^3/uL (4.0-10.5)
[2018-09-12 11:37] LABS: ALANINE AMINOTRANSFERASE 24 U/L (9-52); ALBUMIN 4.5 g/dL (3.5-5.0); ALKALINE PHOSPHATASE 84 U/L (38-126); ANION GAP 9 (5-19); ASPARTATE AMINO TRANSFERASE 19 U/L (14-36); BILIRUBIN,DIRECT 0.2 mg/dL (0.0-0.4); BILIRUBIN,TOTAL 0.6 mg/dL (0.2-1.3); BLOOD UREA NITROGEN 11 mg/dL (7-20); CALCIUM 9.6 mg/dL (8.4-10.2); CARBON DIOXIDE 25 mmol/L (22-30); CHLORIDE 106 mmol/L (98-107); GLUCOSE 100 mg/dL (75-110); POTASSIUM 4.3 mmol/L (3.6-5.0); SODIUM 139.9 mmol/L (137-145); TOTAL PROTEIN 8.2 g/dL (6.3-8.2)
[2018-09-12] MEDS ORDERED: LIDOCAINE 1% INJ-PF (10 MG/ML) 30 ML SDV INJ ONE (12:21)
[2018-09-12] MEDS ORDERED: CEFTRIAXONE INJ 1000 MG VIAL IM ONE (12:21)
[2018-09-12 13:25] VITALS: BP 155/100
== END 2018-09-12 13:25 | disposition home or self-care (01) ==
LOC: ER 08:58
DX: K02.9 Dental caries, unspecified (principal); K08.89 Other specified disorders of teeth and supporting structures; R11.2 Nausea with vomiting, unspecified; F17.200 Nicotine dependence, unspecified, uncomplicated; I10 Essential (primary) hypertension; J45.909 Unspecified asthma, uncomplicated
CPT/HCPCS: 99283; 96372; 36415; 85025; 80053; J1885; S0119; J3490; J0696

== ENCOUNTER 2018-09-16 16:49 | Emergency (ER) | payer SELFPAY ==
[2018-09-16] MEDS ORDERED: ONDANSETRON HCL INJ/PF 4 MG/2 ML SDV IV ONE (17:19)
--- NOTE | 2018-09-16 17:20 | ER Document Report ---
ED Medical Screen (RME) - General Chief Complaint: Abdominal Pain Stated Complaint: ABDOMINAL PAIN Time Seen by Provider: 09/16/18 17:12 Notes: Patient is a 42-year-old female resents to the emergency department with generalized vomiting and diarrhea. Patient states she is vomiting "pure black." Patient states her stools are also "watery and straight black." Patient's denying any abdominal pain at this time. States she was recently seen at this facility for a toothache. States she was started on clindamycin and continues with generalized tooth pain. GENERAL: Alert, interacts well. No acute distress. ABDOMEN: Soft, non-tender. Non-distended. Bowel sounds present in all 4 quadrants. I have greeted and performed a rapid initial assessment of this patient. A comprehensive ED assessment and evaluation of the patient, analysis of test results and completion of the medical decision making process will be conducted by additional ED providers. I have specifically instructed the patient or family members with the patient to immediately return to any nursing staff should anything change in the patient's condition or with their chief complaint. This medical record was dictated with voice recognizing software. There may be grammatical, syntax errors that are unintended. TRAVEL OUTSIDE OF THE [place] IN LAST 30 DAYS: No - Related Data Allergies/Adverse Reactions: prochlorperazine edisylate [From Compazine] Allergy (Severe, Verified 09/16/18 16:51) Facial swelling prochlorperazine maleate [From Compazine] Allergy (Severe, Verified 09/16/18 16:51) Facial swelling verapamil [Verapamil] Allergy (Intermediate, Verified 09/16/18 16:51) Pruritis Past Medical History - Social History Frequency of alcohol use: None Drug Abuse: None - Past Medical History Cardiac Medical History: Reports: Hx Hypercholesterolemia, Hx Hypertension Pulmonary Medical History: Reports: Hx Asthma Neurological Medical History: Denies: Hx Seizures Renal/ Medical History: Reports: Hx Kidney Stones. 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 Denies: Hx Pacemaker - Immunizations Hx Diphtheria, Pertussis, Tetanus Vaccination: Yes History of Influenza Vaccine for 12/2016 - 05/2017 Season: No Physical Exam - Vital signs Vitals: Temp Pulse Resp BP Pulse Ox 98.4 F 106 H 20 112/71 92 09/16/18 17:05 09/16/18 17:05 09/16/18 17:05 09/16/18 17:05 09/16/18 17:05 Course - Vital Signs Vital signs: Temp Pulse Resp BP Pulse Ox 98.4 F 106 H 20 112/71 92 09/16/18 17:05 09/16/18 17:05 09/16/18 17:05 09/16/18 17:05 09/16/18 17:05
[2018-09-16 18:09] LABS: ABSOLUTE BASOPHILS # (AUTO) 0.2 10^3/uL (0.0-0.2); ABSOLUTE EOSINOPHILS # (AUTO) 0.1 10^3/uL (0.0-0.6); ABSOLUTE LYMPHOCYTES (AUTO) 4.5 10^3/uL (0.5-4.7); ABSOLUTE MONOCYTES (AUTO) 0.7 10^3/uL (0.1-1.4); ABSOLUTE NEUT (AUTO) 14.4 10^3/uL (1.7-8.2); BASOPHILS % (AUTO) 0.8 % (0-2); EOSINOPHILS % (AUTO) 0.5 % (0-6); HEMATOCRIT 36.7 % (36.0-47.0); HEMOGLOBIN 12.3 g/dL (12.0-15.5); LYMPHOCYTES % (AUTO) 22.6 % (13-45); MEAN CORPUSCULAR HEMOGLOBIN 30.4 pg (27.0-33.4); MEAN CORPUSCULAR HGB CONC 33.5 g/dL (32.0-36.0); MEAN CORPUSCULAR VOLUME 91 fl (80-97); MONOCYTES % (AUTO) 3.6 % (3-13); PLATELET COUNT 417 10^3/uL (150-450); RED BLOOD COUNT 4.04 10^6/uL (3.72-5.28); RED CELL DISTRIBUTION WIDTH 13.7 % (11.5-14.0); SEGMENTED NEUTROPHILS % (AUTO) 72.5 % (42-78); TOTAL CELLS COUNTED % (AUTO) 100 %; WHITE BLOOD COUNT 19.8 10^3/uL (4.0-10.5)
[2018-09-16 18:14] LABS: APPEARANCE,URINE CLEAR; BILIRUBIN,URINE NEGATIVE (NEGATIVE); COLOR,URINE YELLOW; GLUCOSE, URINE NEGATIVE (NEGATIVE); KETONES,URINE NEGATIVE (NEGATIVE); LEUKOCYTE ESTERASE,URINE TRACE (NEGATIVE); NITRITE,URINE NEGATIVE (NEGATIVE); PROTEIN,URINE NEGATIVE (NEGATIVE); URINE SPECIFIC GRAVITY 1.019; UROBILINOGEN,URINE NEGATIVE mg/dL (<2.0)
[2018-09-16 18:19] LABS: ALANINE AMINOTRANSFERASE 24 U/L (9-52); ALKALINE PHOSPHATASE 50 U/L (38-126); ANION GAP 9 (5-19); ASPARTATE AMINO TRANSFERASE 27 U/L (14-36); BILIRUBIN,DIRECT 0.2 mg/dL (0.0-0.4); BILIRUBIN,TOTAL 0.3 mg/dL (0.2-1.3); BLOOD UREA NITROGEN 39 mg/dL (7-20); CALCIUM 8.9 mg/dL (8.4-10.2); CARBON DIOXIDE 23 mmol/L (22-30); CHLORIDE 108 mmol/L (98-107); GLUCOSE 108 mg/dL (75-110); LIPASE 53.4 U/L (23-300); POTASSIUM 3.7 mmol/L (3.6-5.0); SODIUM 140.4 mmol/L (137-145); TOTAL PROTEIN 7.3 g/dL (6.3-8.2)
[2018-09-16] MEDS ORDERED: NORMAL SALINE 1000 ML 1,000 ML IV ONE ×2 (19:28→19:30)
[2018-09-16] MEDS ORDERED: FENTANYL CITRATE INJ/PF 100 MCG/2 ML AMPUL IV ONE (19:29)
[2018-09-16 19:44] LABS: PROTHROMBIN TIME 13.2 SEC (11.4-15.4)
--- NOTE | 2018-09-16 20:48 | RADIOLOGY REPORT (SQ) ---
EXAM DESCRIPTION: CT ABDOMEN PELVIS WITH IV CONTRAST COMPLETED DATE/TME: 09/16/2018 19:29 CLINICAL HISTORY: 42 years Female LLQ abdominal pain COMPARISON: 10/01/2016. TECHNIQUE: Contiguous axial images obtained through the abdomen and pelvis following IV contrast. Reformatted images obtained. This exam was performed according to our department optimization program which includes automated exposure control, adjustment of the mA and/or kv according to patient size and/or use of iterative reconstruction technique. FINDINGS: Enlarged liver measuring 22.4 cm. The spleen and pancreas appear unremarkable. No adrenal masses. The kidneys appear unremarkable. No hydronephrosis. The gallbladder is visualized. No aneurysmal dilatation of the aorta. No bowel obstruction. The appendix is unremarkable. No significant free fluid noted. There is a simple appearing left ovarian cyst measuring 2.9 cm. This is almost totally benign and no follow-up is recommended. Vascular calcification. IMPRESSION: 2.9 cm left ovarian cyst for which no follow-up is recommended No additional evidence of acute process Enlarged liver
--- NOTE | 2018-09-16 21:45 | ER Document Report ---
ED GI/ - General Chief Complaint: Abdominal Pain Stated Complaint: ABDOMINAL PAIN Time Seen by Provider: 09/16/18 17:12 Mode of Arrival: Ambulatory Information source: Patient TRAVEL OUTSIDE OF THE [place] IN LAST 30 DAYS: No - HPI Patient complains to provider of: Abdominal pain, Other - Black stools. Onset: Yesterday Timing/Duration: Sudden Quality of pain: Pressure Severity at maximum: Moderate Severity in ED: Mild Pain Level: 2 Location: LLQ Vaginal bleeding (Compared to normal period): None Exacerbated by: Denies Relieved by: Denies Similar symptoms previously: No Recently seen / treated by doctor: No - Related Data Allergies/Adverse Reactions: prochlorperazine edisylate [From Compazine] Allergy (Severe, Verified 09/16/18 16:51) Facial swelling prochlorperazine maleate [From Compazine] Allergy (Severe, Verified 09/16/18 16:51) Facial swelling verapamil [Verapamil] Allergy (Intermediate, Verified 09/16/18 16:51) Pruritis Past Medical History - General Information source: Patient - Social History Smoking Status: Current Every Day Smoker Frequency of alcohol use: None Drug Abuse: None Family History: Reviewed & Not Pertinent Patient has suicidal ideation: No Patient has homicidal ideation: No - Past Medical History Cardiac Medical History: Reports: Hx Hypercholesterolemia, Hx Hypertension Pulmonary Medical History: Reports: Hx Asthma Neurological Medical History: Denies: Hx Seizures Renal/ Medical History: Reports: Hx Kidney Stones. 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 Denies: Hx Pacemaker - Immunizations Hx Diphtheria, Pertussis, Tetanus Vaccination: Yes Review of Systems - Review of Systems Constitutional: No symptoms reported EENT: No symptoms reported Cardiovascular: No symptoms reported Respiratory: No symptoms reported Gastrointestinal: Abdominal pain, Diarrhea, Nausea, Vomiting, Poor appetite, Blood in vomit, Black stools Genitourinary: No symptoms reported Female Genitourinary: No symptoms reported Musculoskeletal: No symptoms reported Skin: No symptoms reported Hematologic/Lymphatic: No symptoms reported Neurological/Psychological: No symptoms reported -: Yes All other systems reviewed and negative Physical Exam - Vital signs Vitals: Temp Pulse Resp BP Pulse Ox 98.4 F 106 H 20 112/71 92 09/16/18 17:05 09/16/18 17:05 09/16/18 17:05 09/16/18 17:05 09/16/18 17:05 Interpretation: Normal - General General appearance: Appears well, Alert In distress: Mild - HEENT Head: Normocephalic, Atraumatic Eyes: Normal Pupils: PERRL - Respiratory Respiratory status: No respiratory distress Chest status: Nontender Breath sounds: Normal Chest palpation: Normal - Cardiovascular Rhythm: Regular Heart sounds: Normal auscultation Murmur: No - Abdominal Inspection: Normal Distension: No distension Bowel sounds: Normal Tenderness: Tender - Left lower quadrant tenderness to palpation. Organomegaly: No organomegaly - Rectal Notes: Deferred. - Back Back: Normal, Nontender - Extremities General upper extremity: Normal inspection, Nontender, Normal color, Normal ROM, Normal temperature General lower extremity: Normal inspection, Nontender, Normal color, Normal ROM, Normal temperature, Normal weight bearing. No: Sneha's sign - Neurological Neuro grossly intact: Yes Cognition: Normal Orientation: AAOx4 [place] Coma Scale Eye Opening: Spontaneous [place] Coma Scale Verbal: Oriented [place] Coma Scale Motor: Obeys Commands [place] Coma Scale Total: 15 Speech: Normal Motor strength normal: LUE, RUE, LLE, RLE Sensory: Normal - Psychological Associated symptoms: Normal affect, Normal mood - Skin Skin Temperature: Warm Skin Moisture: Dry Skin Color: Normal Course - Re-evaluation Re-evalutation: 09/16/18 22:22 On re-evaluation patient is feeling much better. I discussed the possibility of transfer to another facility for gastroenterology evaluation and patient is open to transfer. - Vital Signs Vital signs: Temp Pulse Resp BP Pulse Ox 98.3 F 91 16 122/67 94 09/17/18 01:07 09/17/18 01:07 09/17/18 01:07 09/17/18 01:07 09/17/18 01:07 - Laboratory Result Diagrams: 09/16/18 17:47 09/16/18 17:47 Laboratory results interpreted by me: 09/16/18 09/16/18 09/16/18 17:47 17:47 17:47 WBC 19.8 H Absolute Neutrophils 14.4 H Chloride 108 H BUN 39 H Ur Leukocyte Esterase TRACE H - Diagnostic Test Radiology reviewed: Reports reviewed Radiology results interpreted by me: 09/16/18 22:23 CT abdomen and pelvis with IV contrast showed hepatomegaly, 2.9 cm left ovarian cyst. - Transfer of Care Notes: 09/16/18 23:21 Patient is accepted for transfer to [facility] by Dr. Chu Adan for higher level of care. 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 Discharge - Discharge Clinical Impression: Upper gastrointestinal hemorrhage, Gastroenteritis, Hepatomegaly Abdominal pain Qualifiers: Abdominal location: left lower quadrant Qualified Code(s): R10.32 - Left lower quadrant pain Ovarian cyst Qualifiers: Laterality: left Qualified Code(s): N83.202 - Unspecified ovarian cyst, left side Condition: Stable Disposition: [facility]
[2018-09-16] MEDS ORDERED: HYDROMORPHONE HCL INJ/PF 2 MG/ML AMPULE IV ONE (23:06)
[2018-09-16] MEDS ORDERED: PANTOPRAZOLE SODIUM 40 MG VIAL IV ONE (23:19)
[2018-09-16] MEDS ORDERED: PANTOPRAZOLE SODIUM 40 MG VIAL IV PRN (23:19)
[2018-09-17 03:39] VITALS: BP 113/63
== END 2018-09-17 04:00 | disposition short-term general hospital (02) ==
LOC: ER 16:49
DX: K52.9 Noninfective gastroenteritis and colitis, unspecified (principal); R16.0 Hepatomegaly, not elsewhere classified; K92.2 Gastrointestinal hemorrhage, unspecified; N83.202 Unspecified ovarian cyst, left side; R10.32 Left lower quadrant pain; R11.2 Nausea with vomiting, unspecified; F17.200 Nicotine dependence, unspecified, uncomplicated; E78.00 Pure hypercholesterolemia, unspecified; I10 Essential (primary) hypertension; Z87.442 Personal history of urinary calculi
CPT/HCPCS: 96376; 99285; 96361; 96375; 96365; 96366; 86900; 86901; 36415; 86850; 83690; 85025; 85610; 85730; 82272; 81025; 80053; 81001; 74177; J3010; J1170; S0164; J2405; J7030

== ENCOUNTER 2019-04-25 13:34 | Inpatient (IN) | payer SELFPAY ==
[2019-04-25] MEDS ORDERED: METHYLPREDNISOLONE INJ 125 MG/2 ML SDV IM ONE (13:50)
[2019-04-25] MEDS ORDERED: IPRATROPIUM/ALBUTEROL 0.5-2.5 MG/3 ML AMPUL NEB ONE (13:50)
--- NOTE | 2019-04-25 13:51 | ER Document Report ---
ED Medical Screen (RME) - General Chief Complaint: Breathing Difficulty Stated Complaint: SHORTNESS OF BREATH Time Seen by Provider: 04/25/19 13:47 Notes: 43-year-old female with history of asthma and COPD presents for difficulty breathing for the past week. 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 Patient also states some chest pain. Decreased lung sounds throughout. Patient is able to get 3-4 word sentences out. Patient is mildly tachypneic. No tripoding. No accessory muscle use. I have greeted and performed a rapid initial assessment of this patient. A comprehensive ED assessment and evaluation of the patient, analysis of test results and completion of the medical decision making process with be conducted by additional ED providers. TRAVEL OUTSIDE OF THE [place] IN LAST 30 DAYS: No - Related Data Allergies/Adverse Reactions: prochlorperazine edisylate [From Compazine] Allergy (Severe, Verified 04/25/19 13:45) Facial swelling prochlorperazine maleate [From Compazine] Allergy (Severe, Verified 04/25/19 13:45) Facial swelling verapamil [Verapamil] Allergy (Intermediate, Verified 04/25/19 13:45) Pruritis Past Medical History - Social History Chew tobacco use (# tins/day): No Frequency of alcohol use: None Drug Abuse: None - Past Medical History Cardiac Medical History: Reports: Hx Hypercholesterolemia, Hx Hypertension Pulmonary Medical History: Reports: Hx Asthma Neurological Medical History: Denies: Hx Seizures Renal/ Medical History: Reports: Hx Kidney Stones. 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 Denies: Hx Pacemaker - Immunizations Hx Diphtheria, Pertussis, Tetanus Vaccination: Yes Physical Exam - Vital signs Vitals: Temp Pulse Resp BP Pulse Ox 98 F 114 H 32 H 160/115 H 93 04/25/19 13:40 04/25/19 13:40 04/25/19 13:40 04/25/19 13:40 04/25/19 13:40 Course - Vital Signs Vital signs: Temp Pulse Resp BP Pulse Ox 98 F 114 H 32 H 160/115 H 93 04/25/19 13:40 04/25/19 13:40 04/25/19 13:40 04/25/19 13:40 04/25/19 13:40
--- NOTE | 2019-04-25 15:10 | RADIOLOGY REPORT (SQ) ---
EXAM DESCRIPTION: CHEST 2 VIEWS COMPLETED DATE/TIME: 04/25/2019 3:01 pm REASON FOR STUDY: dyspnea COMPARISON: 04/04/2017 EXAM PARAMETERS: NUMBER OF VIEWS: two views TECHNIQUE: Digital Frontal and Lateral radiographic views of the chest acquired. RADIATION DOSE: NA LIMITATIONS: none FINDINGS: LUNGS AND PLEURA: Diffuse perihilar and bilateral alveolar infiltrates most likely represe nting pulmonary edema. Underlying pulmonary nodules cannot be excluded but thought to be less likely . MEDIASTINUM AND HILAR STRUCTURES: No masses or contour abnormalities. HEART AND VASCULAR STRUCTURES: Heart normal size. No evidence for failure. BONES: No acute findings. HARDWARE: None in the chest. OTHER: No other significant finding. IMPRESSION: Diffuse bilateral perihilar and alveolar airspace disease. There is a nodular component on the left. This most likely represents pulmonary edema. Follow-up films are recommended. TECHNICAL DOCUMENTATION: JOB ID: [id number] 2010 [employer]- All Rights Reserved Reading location - IP/workstation name: [email or web address]
[2019-04-25 15:37] LABS: ABSOLUTE BASOPHILS # (AUTO) 0.1 10^3/uL (0.0-0.2); ABSOLUTE EOSINOPHILS # (AUTO) 0.1 10^3/uL (0.0-0.6); ABSOLUTE LYMPHOCYTES (AUTO) 1.5 10^3/uL (0.5-4.7); ABSOLUTE MONOCYTES (AUTO) 0.6 10^3/uL (0.1-1.4); BASOPHILS % (AUTO) 0.4 % (0-2); EOSINOPHILS % (AUTO) 0.3 % (0-6); HEMATOCRIT 34.9 % (36.0-47.0); HEMOGLOBIN 11.3 g/dL (12.0-15.5); LYMPHOCYTES % (AUTO) 8.3 % (13-45); MEAN CORPUSCULAR HEMOGLOBIN 25.8 pg (27.0-33.4); MEAN CORPUSCULAR HGB CONC 32.4 g/dL (32.0-36.0); MEAN CORPUSCULAR VOLUME 80 fl (80-97); PLATELET COUNT 437 10^3/uL (150-450); RED BLOOD COUNT 4.38 10^6/uL (3.72-5.28); RED CELL DISTRIBUTION WIDTH 17.9 % (11.5-14.0); TOTAL CELLS COUNTED % (AUTO) 100 %; WHITE BLOOD COUNT 18.2 10^3/uL (4.0-10.5)
[2019-04-25 15:55] LABS: ALBUMIN 3.9 g/dL (3.5-5.0); ALKALINE PHOSPHATASE 101 U/L (38-126); ANION GAP 14 (5-19); ASPARTATE AMINO TRANSFERASE 19 U/L (14-36); BILIRUBIN,DIRECT 0.3 mg/dL (0.0-0.4); BILIRUBIN,TOTAL 0.8 mg/dL (0.2-1.3); BLOOD UREA NITROGEN 8 mg/dL (7-20); CARBON DIOXIDE 20 mmol/L (22-30); CHLORIDE 104 mmol/L (98-107); GLUCOSE 118 mg/dL (75-110); POTASSIUM 3.9 mmol/L (3.6-5.0); TOTAL PROTEIN 7.7 g/dL (6.3-8.2)
[2019-04-25] MEDS ORDERED: MORPHINE SULFATE 10 MG/ML INJ IV ONE (18:17)
[2019-04-25] MEDS ORDERED: FUROSEMIDE INJ/PF 40 MG/4 ML SDV IV ONE (18:17)
[2019-04-25] MEDS ORDERED: NITROGLYCERIN 2% OINTMENT 1 GM PACKET TP ONE (18:18)
[2019-04-25] MEDS ORDERED: PIPERACILLIN/TAZOBACTAM 3.375 GM VIAL IV ONE (18:19)
[2019-04-25 19:11] LABS: APPEARANCE,URINE SLIGHTLY-CLOUDY; BILIRUBIN,URINE NEGATIVE (NEGATIVE); COLOR,URINE YELLOW; GLUCOSE, URINE NEGATIVE (NEGATIVE); KETONES,URINE 20 mg/dL (NEGATIVE); LEUKOCYTE ESTERASE,URINE NEGATIVE (NEGATIVE); NITRITE,URINE NEGATIVE (NEGATIVE); PROTEIN,URINE 30 mg/dL (NEGATIVE); URINE SPECIFIC GRAVITY 1.023; UROBILINOGEN,URINE NEGATIVE mg/dL (<2.0)
--- NOTE | 2019-04-25 21:28 | RADIOLOGY REPORT (SQ) ---
CT CHEST WITH IV CONTRAST EXAM DATE: 04/25/2019 6:15 PM CERTIFIED PERSONAL CHEF HISTORY: Hypoxia. COMPARISON: None. TECHNIQUE: CT scan of the chest with IV contrast. This exam was performed according to our departmental dose-optimization program, which includes automated exposure control, adjustment of the mA and/or kV according to patient size and/or use of iterative reconstruction technique. FINDINGS: There are diffuse bilateral perihilar groundglass opacities in both lungs. There is also bilateral hilar adenopathy. Trace bilateral pleural effusions. No pneumothorax is seen. Normal heart size without pericardial effusion. The aorta is normal caliber. The visualized upper abdomen demonstrates no acute findings. No acute osseous findings are seen. IMPRESSION: Bilateral perihilar groundglass opacities, suggestive of multifocal pneumonia.
[2019-04-25] MEDS ORDERED: VANCOMYCIN HCL INJ 1000 MG VIAL IV ONE (21:33)
--- NOTE | 2019-04-25 22:39 | EKG REPORT ---
SEVERITY:- ABNORMAL ECG - SINUS TACHYCARDIA MULTIPLE VENTRICULAR PREMATURE COMPLEXES PROBABLE LVH WITH SECONDARY REPOL ABNRM BORDERLINE INFERIOR Q WAVES : Confirmed by: Andres Oliver 25-Apr-2019 22:38:01
--- NOTE | 2019-04-25 23:26 | ER Document Report ---
Entered by DEANNA RENEE SCRIBE 04/25/19 1716 Acting as scribe for:DELFINO SUMMERS MD ED General - General Chief Complaint: Breathing Difficulty Stated Complaint: SHORTNESS OF BREATH Time Seen by Provider: 04/25/19 13:47 Information source: Patient Notes: 43-year-old female presents to the emergency department complaining of shortness of breath that began about a month ago. Patient stated that a week ago, paint was spilled in the hallway and she has had frequent "asthma attacks ever since". Patient denies gaining any weight. Patient states that the last few days she has noticed that she has to sit up in order to breath. Patient stated that she is out of all her medications. Patient denies fever and chills. Patient reports diaphoresis, chest pain, wheezing, migraines, dry mouth, cough, diarrhea, and light to dark green sputum. TRAVEL OUTSIDE OF THE [place] IN LAST 30 DAYS: No - Related Data Allergies/Adverse Reactions: prochlorperazine edisylate [From Compazine] Allergy (Severe, Verified 04/25/19 13:45) Facial swelling prochlorperazine maleate [From Compazine] Allergy (Severe, Verified 04/25/19 13:45) Facial swelling verapamil [Verapamil] Allergy (Intermediate, Verified 04/25/19 13:45) Pruritis Past Medical History - General Information source: Patient - Social History Smoking Status: Current Every Day Smoker Cigarette use (# per day): Yes Chew tobacco use (# tins/day): No Frequency of alcohol use: None Drug Abuse: None Lives with: Friend Family History: Reviewed & Not Pertinent Patient has suicidal ideation: No Patient has homicidal ideation: No - Past Medical History Cardiac Medical History: Reports: Hx Hypercholesterolemia, Hx Hypertension Pulmonary Medical History: Reports: Hx Asthma Renal/ Medical History: Reports: Hx Kidney Stones Musculoskeletal Medical History: Reports Hx Musculoskeletal Deformity, Reports Hx Musculoskeletal Trauma Skin Medical History: Reports Hx Eczema, Reports Hx Psoriasis Psychiatric Medical History: Reports: Hx Anxiety, Hx Depression, Hx Post Traumatic Stress Disorder Traumatic Medical History: Reports: Hx Fractures Past Surgical History: Reports: Hx Section, Hx Tonsillectomy, Hx Urinary Tract Surgery - 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 denies: Chills, Fever EENT: No symptoms reported Cardiovascular: See HPI, Chest pain Respiratory: See HPI, Cough, Sputum, Wheezing Gastrointestinal: Diarrhea. denies: Nausea, Vomiting Genitourinary: No symptoms reported Female Genitourinary: No symptoms reported Musculoskeletal: No symptoms reported Skin: No symptoms reported Hematologic/Lymphatic: No symptoms reported Neurological/Psychological: See HPI, Headaches -: Yes All other systems reviewed and negative Physical Exam - Vital signs Vitals: Temp Pulse Resp BP Pulse Ox 98 F 114 H 32 H 160/115 H 93 04/25/19 13:40 04/25/19 13:40 04/25/19 13:40 04/25/19 13:40 04/25/19 13:40 - Notes Notes: Physical Exam: General: Alert. HEENT: Normocephalic. Atraumatic. PERRL. Extraocular movements intact. Oropharynx clear. Neck: Supple. Non-tender. Respiratory: Moderate respiratory distress. Tachypneic. diminished breath sounds bilaterally. Cardiovascular: Regular rate and rhythm. Abdominal: Normal Inspection. Non-tender. No distension. Normal Bowel Sounds. Back: No gross abnormalities. Extremities: Moves all four extremities. Upper extremities: Normal inspection. Normal ROM. Lower extremities: 1+ edema. Normal ROM. Neurological: Normal cognition. AAOx4. Normal speech. Psychological: Normal affect. Normal Mood. Skin: Warm. Wet. Normal color. Course - Re-evaluation Re-evalutation: 04/25/19 23:22 Patient resting comfortably at this time sats are 96%. No respiratory distress at the moment. - Vital Signs Vital signs: Temp Pulse Resp BP Pulse Ox 98.2 F 114 H 21 H 167/96 H 96 04/25/19 20:59 04/25/19 13:40 04/25/19 20:53 04/25/19 20:53 04/25/19 20:53 - Laboratory Result Diagrams: 04/25/19 15:05 04/25/19 15:05 Laboratory results interpreted by me: 04/25/19 04/25/19 04/25/19 15:05 15:05 15:05 WBC 18.2 H Hgb 11.3 L Hct 34.9 L MCH 25.8 L RDW 17.9 H Lymph % (Auto) 8.3 L Absolute Neuts (auto) 16.0 H Seg Neutrophils % 88.0 H Carbon Dioxide 20 L Glucose 118 H NT-Pro-B Natriuret Pep 2950 H Urine Protein Urine Ketones 04/25/19 18:25 WBC Hgb Hct MCH RDW Lymph % (Auto) Absolute Neuts (auto) Seg Neutrophils % Carbon Dioxide Glucose NT-Pro-B Natriuret Pep Urine Protein 30 H Urine Ketones 20 H - Diagnostic Test Radiology reviewed: Image reviewed, Reports reviewed Radiology results interpreted by me: 04/25/19 23:23 Chest x-ray shows some cardiomegaly and diffuse interstitial markings and cephalization consistent with pulmonary edema. CT scan of chest shows bilateral airspace disease consistent with pneumonia per radiologist. - EKG Interpretation by Me Additional EKG results interpreted by me: 04/25/19 23:24 Twelve-lead EKG done 04/25/2019 1442 shows sinus tachycardia rate of 114 PVCs. LVH with secondary repull changes and borderline Q waves. Discharge - Discharge Clinical Impression: Pulmonary edema, CHF (congestive heart failure), COPD with exacerbation, Leukocytosis (leucocytosis), Tobacco abuse, Pneumonia Condition: Fair Disposition: ADMITTED INPATIENT Admitting Provider: Mckenzie (Hospitalist) Unit Admitted: Medical Floor I personally performed the services described in the documentation, reviewed and edited the documentation which was dictated to the scribe in my presence, and it accurately records my words and actions.
[2019-04-25] MEDS ORDERED: HEPARIN SOD (PORCINE) 5,000 UNIT/ML 1 ML VIAL SUBCUT ONE (23:45)
[2019-04-25] MEDS ORDERED: ACETAMINOPHEN 325 MG TABLET PO ONE (23:52)
[2019-04-26] MEDS ORDERED: MAG HYDROX/AL HYDROX/SIMETH SUSP 30 ML UDCUP PO PRN
[2019-04-26] MEDS ORDERED: MAGNESIUM HYDROXIDE SUSP 30 ML UDCUP PO PRN
[2019-04-26] MEDS ORDERED: NICOTINE 21 MG/24 HR PATCH.TD24 TD PRN (00:07)
[2019-04-26] MEDS ORDERED: LEVALBUTEROL HCL NEB 0.63 MG/3 ML AMPUL NEB PRN (00:07)
[2019-04-26] MEDS ORDERED: ACETAMINOPHEN 325 MG TABLET PO PRN (00:07)
[2019-04-26] MEDS ORDERED: FAMOTIDINE 20 MG TABLET PO ONE (01:00)
[2019-04-26] MEDS ORDERED: LISINOPRIL 10 MG TABLET PO ONE (01:00)
[2019-04-26] MEDS ORDERED: METOPROLOL SUCCINATE 50 MG TAB.SR.24H PO ONE ×2 (01:00→02:42)
[2019-04-26] MEDS ORDERED: BUMETANIDE INJ/PF 1 MG/4 ML SDV IV ONE ×2 (01:00→07:00)
[2019-04-26 01:37] LABS: CREATINE KINASE MB 0.59 ng/mL (<4.55)
[2019-04-26 01:43] LABS: TROPONIN I < 0.012 ng/mL
[2019-04-26] MEDS: MORPHINE SULFATE 10 MG/ML INJ IV PRN ×2 (02:49→22:43)
[2019-04-26] MEDS ORDERED: INFLUENZA QUAD (6MOS+) 2019-20 VAC 0.5 ML SYR IM ONE (03:09)
[2019-04-26] MEDS: HEPARIN SOD (PORCINE) 5,000 UNIT/ML 1 ML VIAL SUBCUT SCH ×3 (06:40→21:22)
[2019-04-26 07:08] LABS: ANION GAP 14 (5-19); BLOOD UREA NITROGEN 11 mg/dL (7-20); CALCIUM 9.3 mg/dL (8.4-10.2); CARBON DIOXIDE 22 mmol/L (22-30); CHLORIDE 101 mmol/L (98-107); CHOLESTEROL 254.38 mg/dL (0-200); CREATINE KINASE 26 U/L (30-135); CREATINE KINASE MB 0.75 ng/mL (<4.55); GLUCOSE 160 mg/dL (75-110); POTASSIUM 4.2 mmol/L (3.6-5.0); TRIGLYCERIDES 93 mg/dL (<150); TROPONIN I < 0.012 ng/mL
[2019-04-26 07:18] LABS: DIRECT LDL 203 mg/dL (<100)
[2019-04-26] MEDS: TORSEMIDE 20 MG TABLET PO SCH ×2 (08:16→14:24)
[2019-04-26] MEDS: IPRATROPIUM BROMIDE 0.02% NEB 0.5 MG/2.5 ML AMPUL NEB SCH ×2 (08:45→16:38)
[2019-04-26] MEDS: LEVALBUTEROL HCL NEB 1.25 MG/3 ML AMPUL NEB SCH ×2 (08:45→16:38)
[2019-04-26] MEDS: CLOPIDOGREL BISULFATE 75 MG TABLET PO SCH (10:02)
[2019-04-26] MEDS: DOCUSATE SODIUM 100 MG CAPSULE PO SCH (10:02)
[2019-04-26] MEDS: SPIRONOLACTONE 25 MG TABLET PO SCH (10:02)
[2019-04-26] MEDS: FAMOTIDINE 20 MG TABLET PO SCH ×2 (10:02→21:21)
[2019-04-26] MEDS: LISINOPRIL 10 MG TABLET PO SCH ×2 (10:02→21:21)
[2019-04-26] MEDS: METOPROLOL SUCCINATE 50 MG TAB.SR.24H PO SCH ×2 (10:04→21:21)
--- NOTE | 2019-04-26 11:13 | PDOC H&P ---
History of Present Illness Admission Date/PCP: 04/25/2019 23:27 No local PCP Patient complains of: Dyspnea History of Present Illness: ADRIANA MENDOZA is a 43 year old female who presents the emergency room with a one-week history of dyspnea. Patient admits that approximately 1 week ago she was exposed to some paint fumes in the hallway at her residence and had an asthma attack because of that. Since that time she acknowledges progressively worsening dyspnea, worsened by exertion and accompanied by orthopnea. She also acknowledges associated symptoms of intermittent diaphoresis, occasional brief chest pains, occasional wheezing, episodes of migraine headache, cough occasionally productive of small amounts of greenish mucus, dry mouth and episodic diarrhea. Her dyspnea rapidly became much more severe on the day of admission causing her to present to the emergency room. She denies other associated or accompanying signs and symptoms. She admits prior similar episodes related to her COPD/asthma. She has not identified any additional aggravating or ameliorating factors for her dyspnea. In the emergency room she was found to be tachypneic, tachycardic, hypoxic, orthopneic and was noted to have an elevated BNP confirming pulmonary edema/acute congestive heart failure noted on her chest x-ray and CT of the chest. She was subsequently admitted to the hospital for further evaluation and treatment. Past Medical History Cardiac Medical History: Reports: Hyperlipidema, Hypertension Denies: Atrial Fibrillation, Congestive Heart Failure, Coronary Artery Disease, DVT, Myocardial Infarction, Peripheral Vascular Disease, Pulmonary Em bolism Pulmonary Medical History: Reports: Asthma, Chronic Obstructive Pulmonary Disease (COPD) Denies: Bronchitis, Pneumonia EENT Medical History: Denies: Cataracts, Ears - Hearing aids Neurological Medical History: Denies: Hemorrhagic CVA, Ischemic CVA, Seizures Endocrine Medical History: Reports: Obesity Denies: Diabetes Mellitus Type 1, Diabetes Mellitus Type 2, Hyperthyroidism, Hypothyroidism Renal/ Medical History: Reports: Nephrolithiasis, Other - Status post left ureterectomy Denies: Chronic Kidney Disease Malignancy Medical History: Reports: None GI Medical History: Denies: Cirrhosis, Crohn's Disease, Gastroesophageal Reflux Disease, Hepatitis, Peptic Ulcer Disease, Ulcerative Colitis Musculoskeltal Medical History: Denies: Arthritis, Gout Skin Medical History: Reports: Eczema, Psoriasis Psychiatric Medical History: Reports: Depression, Post Traumatic Stress Disorder, Tobacco Dependency Denies: Alcohol Dependency, Substance Abuse Traumatic Medical History: Reports: None Hematology: Denies: Anemia, Bleeding Tendencies Infectious Medical History: Reports: None Past Surgical History Past Surgical History: Reports: Section, Tonsillectomy, Other - Left ureterectomy Social History Information Source: Patient Lives with: Friend Smoking Status: Current Every Day Smoker Electronic Cigarette use?: No Frequency of Alcohol Use: Rare Hx Recreational Drug Use: No Drugs: None Hx Prescription Drug Abuse: No - Advance Directive Resuscitation Status: Full Code Surrogate healthcare decision maker:: Yessi Dsouza Family History Family History: Arthritis, CAD, Hyperlipidemia, Hypertension, Other - Psoriasis. denies: DM, Malignancy Parental Family History Reviewed: Yes Children Family History Reviewed: No Sibling(s) Family History Reviewed.: Yes Medication/Allergy Home Medications: No Home Medications 04/25/19 Allergies/Adverse Reactions: prochlorperazine edisylate [From Compazine] Allergy (Severe, Verified 04/25/19 1 3:45) Facial swelling prochlorperazine maleate [From Compazine] Allergy (Severe, Verified 04/25/19 13:45) Facial swelling verapamil [Verapamil] Allergy (Intermediate, Verified 04/25/19 13:45) Pruritis Review of Systems Constitutional: PRESENT: as per HPI, headache(s). ABSENT: chills, fever(s) Eyes: ABSENT: visual disturbances, other - Eye pain Ears: ABSENT: hearing changes, other - Ear pain Nose, Mouth, and Throat: PRESENT: as per HPI, headache(s), other - Dry mouth. ABSENT: mouth pain, sore throat Cardiovascular: PRESENT: as per HPI, chest pain, dyspnea on exertion, orthropnea. ABSENT: edema, palpitations Respiratory: PRESENT: as per HPI, cough, dyspnea, sputum. ABSENT: hemoptysis Gastrointestinal: PRESENT: diarrhea. ABSENT: abdominal pain, constipation, nausea, vomiting Genitourinary: ABSENT: difficulty urinating, dysuria, hematuria Musculoskeletal: ABSENT: back pain, joint swelling, muscle weakness Integumentary: PRESENT: as per HPI, diaphoresis. ABSENT: pruritus, rash Neurological: ABSENT: confusion, convulsions, focal weakness, memory loss, syncope Psychiatric: ABSENT: anxiety, depression Endocrine: ABSENT: cold intolerance, heat intolerance, polydipsia, polyphagia, polyuria Hematologic/Lymphatic: ABSENT: easy bleeding, easy bruising Allergic/Immunologic: ABSENT: seasonal rhinorrhea Physical Exam Vital Signs: Temp Pulse Resp BP Pulse Ox 98.2 F 114 H 21 H 167/96 H 96 04/25/19 20:59 04/25/19 13:40 04/25/19 20:53 04/25/19 20:53 04/25/19 20:53 Intake & Output 04/23/19 04/24/19 04/25/19 23:59 23:59 23:59 Weight 90.2 kg General appearance: PRESENT: no acute distress, cooperative, obese Head exam: PRESENT: atraumatic, normocephalic Eye exam: PRESENT: conjunctiva pink. ABSENT: conjunctival injection, scleral icterus Ear exam: PRESENT: normal external ear exam. ABSENT: bleeding, drainage Mouth exam: PRESENT: dry mucosa, neck supple Neck exam: PRESENT: JVD - Bilateral at 30 degrees elevation. ABSENT: thyromegaly, tracheal deviation Respiratory exam: PRESENT: rales - Fine rales noted bilaterally in the lower one half of lung dukes, symmetrical, tachypnea. ABSENT: prolonged expiratory p has, wheezes Cardiovascular exam: PRESENT: gallop - S4 gallop rhythm, RRR. ABSENT: clicks, rubs Pulses: PRESENT: normal radial pulses, normal dorsalis pedis pul Vascular exam: PRESENT: normal capillary refill. ABSENT: pallor GI/Abdominal exam: PRESENT: normal bowel sounds, soft Rectal exam: PRESENT: deferred Extremities exam: ABSENT: joint swelling, pedal edema Musculoskeletal exam: ABSENT: deformity, dislocation Neurological exam: PRESENT: alert, oriented to person, oriented to place, oriented to time, oriented to situation, CN II-XII grossly intact. ABSENT: motor sensory deficit Psychiatric exam: PRESENT: appropriate affect, normal mood Skin exam: PRESENT: dry, intact, warm. ABSENT: jaundice, rash, urticaria Results Laboratory Results: 04/25/19 15:05 04/25/19 15:05 04/25/19 04/25/19 04/25/19 15:05 15:05 18:25 WBC 18.2 H RBC 4.38 Hgb 11.3 L Hct 34.9 L MCV 80 MCH 25.8 L MCHC 32.4 RDW 17.9 H Plt Count 437 Seg Neutrophils % 88.0 H Sodium 138.4 Potassium 3.9 Chloride 104 Carbon Dioxide 20 L Anion Gap 14 BUN 8 Creatinine 0.57 Est GFR ( Amer) > 60 Glucose 118 H Calcium 9.0 Total Bilirubin 0.8 AST 19 Alkaline Phosphatase 101 Total Protein 7.7 Albumin 3.9 Urine Color YELLOW Urine Appearance SLIGHTLY-CLOUDY Urine pH 6.0 Ur Specific [place] 1.023 Urine Protein 30 H Urine Glucose (UA) NEGATIVE Urine Ketones 20 H Urine Blood NEGATIVE Urine Nitrite NEGATIVE Ur Leukocyte Esterase NEGATIVE Urine WBC (Auto) 3 Urine RBC (Auto) 2 04/25/19 04/25/19 15:05 15:05 Troponin I 0.014 NT-Pro-B Natriuret Pep 2950 H Impressions: Chest X-Ray 04/25/19 13:47 IMPRESSION: Diffuse bilateral perihilar and alveolar airspace disease. There is a nodular component on the left. This most likely represents pulmonary edema. Follow-up films are recommended. Chest CT 04/25/19 18:15 IMPRESSION: Bilateral perihilar groundglass opacities, suggestive of multifocal pneumonia. Assessment and Plan - Diagnosis (1) Acute pulmonary edema with congestive heart failure Is this a current diagnosis for this admission?: Yes (2) Respiratory failure with hypoxia Qualifiers: Chronicity: acute Qualified Code(s): J96.01 - Acute respiratory failure with hypoxia Is this a current diagnosis for this admission?: Yes (3) Acute congestive heart failure Qualifiers: Heart failure type: unspecified Qualified Code(s): I50.9 - Heart failure, unspecified Is this a current diagnosis for this admission?: Yes (4) COPD (chronic obstructive pulmonary disease) Qualifiers: COPD type: unspecified COPD Qualified Code(s): J44.9 - Chronic obstructive pulmonary disease, unspecified Is this a current diagnosis for this admission?: Yes (5) HTN (hypertension) Qualifiers: Hypertension type: essential hypertension Is this a current diagnosis for this admission?: Yes (6) Tobacco abuse Is this a current diagnosis for this admission?: Yes - Plan Summary Summary: Patient is admitted to the medical floor where she received routine supportive and symptomatic cares. She will be treated with supplemental oxygen via nasal cannula and/or noninvasive airway pressure devices as required to maintain an adequate oxygen saturation. She will receive morphine sulfate 2 mg IV every hour as needed severe dyspnea due to pulmonary edema. She will receive IV Bumex 1 mg every 6 hours x2 doses initially. She will be started on appropriate medical regimen for congestive heart failure including lisinopril, metoprolol succinate and Spironolactone. She will receive a routine pulmonary toilet for control of her chronic obstructive pulmonary disease. Serial cardiac enzymes will be obtained. A TSH and lipid profile will be obtained. An echocardiogram will be obtained and consideration for cardiology consultation will be given with the decision to be made by the patient's hospitalist. Ongoing CBCs, m etabolic profiles and magnesium levels will be obtained as required. - Time Time Spent with patient: 25-34 minutes Smoking Cessation Education: 3 to 10 minutes Medications reviewed and adjusted accordingly: No - Off all meds due to cost Anticipated discharge: Home - Inpatient Certification Based on my medical assessment, after consideration of the patient's comorbidities, presenting symptoms, or acuity I expect that the services needed warrant INPATIENT care.: Yes I certify that my determination is in accordance with my understanding of Medicare's requirements for reasonable and necessary INPATIENT services [42 CFR 412.3e].: Yes Medical Necessity: Need Close Monitoring Due to Risk of Patient Decompensation, Risk of Complication if Not Cared For in Hospital
[2019-04-26 12:14] LABS: CREATINE KINASE MB 0.72 ng/mL (<4.55)
[2019-04-26 12:20] LABS: TROPONIN I < 0.012 ng/mL
--- NOTE | 2019-04-26 16:05 | PDOC PROGRESS REPORT ---
Subjective Progress Note for:: 04/26/19 Subjective:: Patient admitted overnight with difficulty breathing. She was found to be in acute pulmonary edema. She says her breathing is slightly better Reason For Visit: ACUTE CONGESTIVE HEART FAILURE,ACUTE PULMONARY Physical Exam Vital Signs: Temp Pulse Resp BP Pulse Ox 98.0 F 67 16 130/76 H 96 04/26/19 11:30 04/26/19 11:30 04/26/19 11:30 04/26/19 11:30 04/26/19 11:30 Intake & Output 04/25/19 04/26/19 04/27/19 06:59 06:59 06:59 Intake Total 570 Output Total 1500 500 Balance -1500 70 Weight 89 kg General appearance: PRESENT: no acute distress, well-developed, well-nourished Head exam: PRESENT: atraumatic, normocephalic Eye exam: PRESENT: conjunctiva pink, EOMI, PERRLA. ABSENT: scleral icterus Ear exam: PRESENT: normal external ear exam Mouth exam: PRESENT: moist, tongue midline Neck exam: ABSENT: carotid bruit, JVD, lymphadenopathy, thyromegaly Respiratory exam: PRESENT: crackles, rhonchi. ABSENT: rales, wheezes Cardiovascular exam: PRESENT: RRR, +S1, +S2. ABSENT: diastolic murmur, rubs, systolic murmur Pulses: PRESENT: normal dorsalis pedis pul Vascular exam: PRESENT: normal capillary refill GI/Abdominal exam: PRESENT: normal bowel sounds, soft. ABSENT: distended, guarding, mass, organolmegaly, rebound, tenderness Rectal exam: PRESENT: deferred Extremities exam: PRESENT: full ROM, +1 edema. ABSENT: calf tenderness, clubbing, pedal edema Neurological exam: PRESENT: alert, awake, oriented to person, oriented to place, oriented to time, oriented to situation, CN II-XII grossly intact. ABSENT: motor sensory deficit Psychiatric exam: PRESENT: appropriate affect, normal mood. ABSENT: homicidal ideation, suicidal ideation Skin exam: PRESENT: dry, intact, warm. ABSENT: cyanosis, rash Results Laboratory Results: 04/25/19 15:05 04/26/19 05:30 04/25/19 04/25/19 04/25/19 15:05 15:05 18:25 Sodium 138.4 Potassium 3.9 Chloride 104 Carbon Dioxide 20 L Anion Gap 14 BUN 8 Creatinine 0.57 Est GFR ( Amer) > 60 Glucose 118 H Lactic Acid Calcium 9.0 Magnesium Total Bilirubin 0.8 AST 19 Alkaline Phosphatase 101 Total Protein 7.7 Albumin 3.9 Triglycerides Cholesterol LDL Cholesterol Direct VLDL Cholesterol HDL Cholesterol TSH 1.59 Urine Color YELLOW Urine Appearance SLIGHTLY-CLOUDY Urine pH 6.0 Ur Specific [place] 1.023 Urine Protein 30 H Urine Glucose (UA) NEGATIVE Urine Ketones 20 H Urine Blood NEGATIVE Urine Nitrite NEGATIVE Ur Leukocyte Esterase NEGATIVE Urine WBC (Auto) 3 Urine RBC (Auto) 2 04/26/19 04/26/19 01:02 05:30 Sodium 137.2 Potassium 4.2 Chloride 101 Carbon Dioxide 22 Anion Gap 14 BUN 11 Creatinine 0.53 Est GFR ( Amer) > 60 Glucose 160 H Lactic Acid 4.2 H Calcium 9.3 Magnesium 2.0 Total Bilirubin AST Alkaline Phosphatase Total Protein Albumin Triglycerides 93 Cholesterol 254.38 H LDL Cholesterol Direct 203 H VLDL Cholesterol 19.0 HDL Cholesterol 45 TSH Urine Color Urine Appearance Urine pH Ur Specific [place] Urine Protein Urine Glucose (UA) Urine Ketones Urine Blood Urine Nitrite Ur Leukocyte Esterase Urine WBC (Auto) Urine RBC (Auto) 04/25/19 04/25/19 04/26/19 15:05 15:05 01:02 Creatine Kinase 22 L CK-MB (CK-2) Troponin I 0.014 NT-Pro-B Natriuret Pep 2950 H 04/26/19 04/26/19 04/26/19 01:02 05:30 05:30 Creatine Kinase 26 L CK-MB (CK-2) 0.59 0.75 Troponin I < 0.012 < 0.012 NT-Pro-B Natriuret Pep 04/26/19 04/26/19 11:21 11:21 Creatine Kinase 20 L CK-MB (CK-2) 0.72 Troponin I < 0.012 NT-Pro-B Natriuret Pep Impressions: Chest X-Ray 04/25/19 13:47 IMPRESSION: Diffuse bilateral perihilar and alveolar airspace disease. There is a nodular component on the left. This most likely represents pulmonary edema. Follow-up films are recommended. Chest CT 04/25/19 18:15 IMPRESSION: Bilateral perihilar groundglass opacities, suggestive of multifocal pneumonia. Assessment and Plan - Diagnosis (1) Acute congestive heart failure Qualifiers: Heart failure type: unspecified Qualified Code(s): I50.9 - Heart failure, unspecified Is this a current diagnosis for this admission?: Yes Plan: Continue with Lasix, and follow-up with echocardiogram (2) Acute pulmonary edema with congestive heart failure Is this a current diagnosis for this admission?: Yes Plan: Due to noncompliance. Patient states she has been out of her medication for weeks due to insurance issues (3) COPD with exacerbation Is this a current diagnosis for this admission?: Yes (4) Leukocytosis Is this a current diagnosis for this admission?: Yes Plan: Due to PNA (5) Pneumonia Qualifiers: Is this a current diagnosis for this admission?: Yes Plan: CT scan shows bilateral perihilar groundglass opacities suggestive of multifocal pneumonia. Patient is currently on Zosyn which will be continued. She did receive a dose of vancomycin in the ER but I see no need for continuing this. (6) Tobacco abuse Is this a current diagnosis for this admission?: Yes (7) Medically noncompliant Is this a current diagnosis for this admission?: Yes Plan: Patient states she ran out of her medications months ago and has made minimal effort to reinstate her insurance or medications - Time Time Spent with patient: 25-34 minutes Smoking Cessation Education: 3 to 10 minutes Medications reviewed and adjusted accordingly: Yes Anticipated discharge: Home Within: within 72 hours - Inpatient Certification Based on my medical assessment, after consideration of the patient's comorbidities, presenting symptoms, or acuity I expect that the services needed warrant INPATIENT care.: Yes Medical Necessity: Significant Comorbidiites Make Outpatient Treatment Too Risky, Need for IV Antibiotics
--- NOTE | 2019-04-26 20:11 | XCELERA REPORT ---
[address] [address] Transthoracic Echocardiogram Report Name: ADRIANA MENDOZA Age: 43 yrs Gender: Female : 1975 Patient Status: Inpatient Patient Location: [address] [place], [place] [id number] Study Date: 04/26/2019 03:09 PM Height: 65 in Weight: 198 lb BSA: 2.0 m2 Procedure: A complete two-dimensional transthoracic echocardiogram was performed (2D, M-mode, spectral and color flow Doppler). The study was technically adequate with some images being suboptimal in quality. Reason For Study: Acute pulmonary edema with CHF Ordering Physician: EDITH STOCKTON Performed By: Ольга Jimenez Interpretation Summary The Ejection Fraction estimate is 40-45% Left ventricular systolic function is mild to moderately reduced. There is borderline concentric left ventricular hypertrophy. The left ventricle is mildly dilated. Doppler measurements suggest pseudonormalized left ventricular relaxation, which is associated with grade II/IV or mild to moderate diastolic dysfunction There is mild to moderate global hypokinesis of the left ventricle. The right ventricle is mildly dilated. The right ventricular systolic function is normal. The left atrium is severely dilated. The right atrium is mildly dilated. There is a moderate to severe amount of mitral regurgitation There is no mitral valve stenosis. There is no aortic valve stenosis No aortic regurgitation is present. There is a moderate amount of tricuspid regurgitation Right ventricular systolic pressure is estimated to be elevated at 30-40mmHg. There is mild pulmonary hypertension by echo The aortic root is not well visualized but is probably normal size. The inferior vena cava appeared normal and decreased > 50% with respiration (RAP 5-10 mmHg) There is no pericardial effusion. MMode/2D Measurements & Calculations RVDd: 3.2 cm LVIDd: 5.9 cm FS: 19.1 % Ao root diam: 2.4 cm IVSd: 0.06 cm LVIDs: 4.8 cm EDV(Teich): 174.9 ml Ao root area: 4.5 cm2 LVPWd: 0.92 cm ESV(Teich): 107.3 ml LA dimension: 5.4 cm EF(Teich): 38.6 % Doppler Measurements & Calculations MV E max chitra: MV P1/2t max chitra: Ao V2 max: LV V1 max P.4 cm/sec 184.2 cm/sec 146.2 cm/sec 1.9 mmHg MV A max chitra: MV P1/2t: 79.4 msec Ao max P.6 mmHgLV V1 max: 54.9 cm/sec MVA(P1/2t): 2.8 cm2 68.8 cm/sec MV E/A: 3.2 MV dec slope: 679.2 cm/sec2 MV dec time: 0.25 sec PA V2 max: TR max chitra: MV P1/2t-pr_phl: 59.0 cm/sec 285.0 cm/sec 79.4 msec PA max P.4 mmHg TR max P.5 mmHg Left Ventricle The left ventricle is mildly dilated. There is borderline concentric left ventricular hypertrophy. Left ventricular systolic function is mild to moderately reduced. The Ejection Fraction estimate is 40-45%. Doppler measurements suggest pseudonormalized left ventricular relaxation, which is associated with grade II/IV or mild to moderate diastolic dysfunction. There is mild to moderate global hypokinesis of the left ventricle. Right Ventricle The right ventricle is mildly dilated. There is normal right ventricular wall thickness. The right ventricular systolic function is normal. Atria The right atrium is mildly dilated. The left atrium is severely dilated. Interarterial septum not well visualized and not well dopplered. Cannot comment on ASD/PFO presence. Mitral Valve The mitral valve leaflets are sclerotic and show some degree of functional abnormality. There is no mitral valve stenosis. There is a moderate to severe amount of mitral regurgitation. Aortic Valve The aortic valve is grossly normal. There is no aortic valve stenosis. No aortic regurgitation is present. Tricuspid Valve The tricuspid valve is not well visualized, but is grossly normal. There is no tricuspid stenosis. There is a moderate amount of tricuspid regurgitation. There is mild pulmonary hypertension by echo. Right ventricular systolic pressure is estimated to be elevated at 30-40mmHg. Pulmonic Valve The pulmonic valve is not well visualized. Great Vessels The aortic root is not well visualized but is probably normal size. The inferior vena cava appeared normal and decreased > 50% with respiration (RAP 5-10 mmHg). Effusions There is no pericardial effusion. : EDITH STOCKTON Shyamal
[2019-04-27] MEDS: LEVALBUTEROL HCL NEB 1.25 MG/3 ML AMPUL NEB SCH ×3 (00:32→15:30)
[2019-04-27] MEDS: IPRATROPIUM BROMIDE 0.02% NEB 0.5 MG/2.5 ML AMPUL NEB SCH ×3 (00:32→15:30)
[2019-04-27] MEDS: TORSEMIDE 20 MG TABLET PO SCH ×2 (05:32→12:45)
[2019-04-27] MEDS: HEPARIN SOD (PORCINE) 5,000 UNIT/ML 1 ML VIAL SUBCUT SCH ×3 (05:32→21:54)
[2019-04-27 06:47] LABS: HEMATOCRIT 31.9 % (36.0-47.0); HEMOGLOBIN 10.4 g/dL (12.0-15.5); MEAN CORPUSCULAR HEMOGLOBIN 25.7 pg (27.0-33.4); MEAN CORPUSCULAR HGB CONC 32.7 g/dL (32.0-36.0); MEAN CORPUSCULAR VOLUME 79 fl (80-97); PLATELET COUNT 445 10^3/uL (150-450); RED BLOOD COUNT 4.05 10^6/uL (3.72-5.28); RED CELL DISTRIBUTION WIDTH 17.5 % (11.5-14.0); WHITE BLOOD COUNT 22.2 10^3/uL (4.0-10.5)
[2019-04-27 06:55] LABS: ANION GAP 12 (5-19); BLOOD UREA NITROGEN 28 mg/dL (7-20); CARBON DIOXIDE 25 mmol/L (22-30); CHLORIDE 99 mmol/L (98-107); GLUCOSE 98 mg/dL (75-110); POTASSIUM 4.1 mmol/L (3.6-5.0)
[2019-04-27 07:21] LABS: ABSOLUTE LYMPHOCYTES# (MANUAL) 4.4 10^3/uL (0.5-4.7); ABSOLUTE MONOCYTES # (MANUAL) 1.6 10^3/uL (0.1-1.4); BASOPHILS % (MANUAL) 0 % (0-2); EOSINOPHILS % (MANUAL) 0 % (0-6); LYMPHOCYTES % (MANUAL) 20 % (13-45); MONOCYTES % (MANUAL) 7 % (3-13); SEGMENTED NEUTROPHILS % (MAN) 73 % (42-78); TOTAL CELLS COUNTED 100
[2019-04-27 07:24] LABS: ANISOCYTOSIS 1+
[2019-04-27 07:25] LABS: HYPOCHROMASIA SLIGHT; PLATELET COMMENT ADEQUATE; POLYCHROMASIA SLIGHT
--- NOTE | 2019-04-27 08:27 | PDOC PROGRESS REPORT ---
Subjective Progress Note for:: 04/27/19 Subjective:: Patient admitted overnight with difficulty breathing. She was found to be in acute pulmonary edema. She says her breathing is slightly better Reason For Visit: ACUTE CONGESTIVE HEART FAILURE,ACUTE PULMONARY Physical Exam Vital Signs: Temp Pulse Resp BP Pulse Ox 98.1 F 79 18 135/85 H 97 04/26/19 20:00 04/27/19 00:32 04/27/19 00:32 04/26/19 20:00 04/27/19 00:32 Intake & Output 04/26/19 04/27/19 04/28/19 06:59 06:59 06:59 Intake Total 3420 Output Total 1500 4500 Balance -1500 -1080 Weight 89 kg 86.4 kg General appearance: PRESENT: no acute distress, well-developed, well-nourished Head exam: PRESENT: atraumatic, normocephalic Eye exam: PRESENT: conjunctiva pink, EOMI, PERRLA. ABSENT: scleral icterus Ear exam: PRESENT: normal external ear exam Mouth exam: PRESENT: moist, tongue midline Neck exam: ABSENT: carotid bruit, JVD, lymphadenopathy, thyromegaly Respiratory exam: PRESENT: crackles, rhonchi, unlabored. ABSENT: rales, wheezes Cardiovascular exam: PRESENT: RRR, +S1, +S2. ABSENT: diastolic murmur, rubs, systolic murmur Pulses: PRESENT: normal dorsalis pedis pul Vascular exam: PRESENT: normal capillary refill GI/Abdominal exam: PRESENT: normal bowel sounds, soft. ABSENT: distended, guarding, mass, organolmegaly, rebound, tenderness Rectal exam: PRESENT: deferred Extremities exam: PRESENT: full ROM, +2 edema. ABSENT: calf tenderness, clubbing, pedal edema Neurological exam: PRESENT: alert, awake, oriented to person, oriented to place, oriented to time, oriented to situation, CN II-XII grossly intact. ABSENT: motor sensory deficit Psychiatric exam: PRESENT: appropriate affect, normal mood. ABSENT: homicidal ideation, suicidal ideation Skin exam: PRESENT: dry, intact, warm. ABSENT: cyanosis, rash Results Laboratory Results: 04/27/19 05:17 04/27/19 05:17 04/27/19 04/27/19 05:17 05:17 WBC 22.2 H RBC 4.05 Hgb 10.4 L Hct 31.9 L MCV 79 L MCH 25.7 L MCHC 32.7 RDW 17.5 H Plt Count 445 Seg Neutrophils % Not Reportable Sodium 136.1 L Potassium 4.1 Chloride 99 Carbon Dioxide 25 Anion Gap 12 BUN 28 H Creatinine 0.91 Est GFR ( Amer) > 60 Glucose 98 Calcium 9.0 Magnesium 2.1 04/25/19 04/25/19 04/26/19 15:05 15:05 01:02 Creatine Kinase 22 L CK-MB (CK-2) Troponin I 0.014 NT-Pro-B Natriuret Pep 2950 H 04/26/19 04/26/19 04/26/19 01:02 05:30 05:30 Creatine Kinase 26 L CK-MB (CK-2) 0.59 0.75 Troponin I < 0.012 < 0.012 NT-Pro-B Natriuret Pep 04/26/19 04/26/19 11:21 11:21 Creatine Kinase 20 L CK-MB (CK-2) 0.72 Troponin I < 0.012 NT-Pro-B Natriuret Pep Impressions: Chest X-Ray 04/25/19 13:47 IMPRESSION: Diffuse bilateral perihilar and alveolar airspace disease. There is a nodular component on the left. This most likely represents pulmonary edema. Follow-up films are recommended. Chest CT 04/25/19 18:15 IMPRESSION: Bilateral perihilar groundglass opacities, suggestive of multifocal pneumonia. Assessment and Plan - Diagnosis (1) Acute congestive heart failure Qualifiers: Heart failure type: unspecified Qualified Code(s): I50.9 - Heart failure, unspecified Is this a current diagnosis for this admission?: Yes Plan: Continue with Lasix, echocardiogram shows ejection fraction of 40%. We will continue to diurese and adjust medications as appropriate (2) Acute pulmonary edema with congestive heart failure Is this a current diagnosis for this admission?: Yes Plan: Due to noncompliance. Patient states she has been out of her medication for weeks due to insurance issues Patient advised on the need to be compliant with her medications (3) COPD with exacerbation Is this a current diagnosis for this admission?: Yes Plan: Continue with bronchodilators. Patient had received a dose of steroids in the emergency room likely explaining her leukocytosis (4) Leukocytosis Is this a current diagnosis for this admission?: Yes Plan: Likely secondary to steroids. No evidence of worsening clinical picture (5) Pneumonia Qualifiers: Is this a current diagnosis for this admission?: Yes Plan: CT scan shows bilateral perihilar groundglass opacities suggestive of multifocal pneumonia. Patient is currently on Zosyn which will be continued. She did receive a dose of vancomycin in the ER but I see no need for continuing this. Patient also shows clinical improvement (6) Tobacco abuse Is this a current diagnosis for this admission?: Yes Plan: Can counselled on quitting (7) Medically noncompliant Is this a current diagnosis for this admission?: Yes - Time Time Spent with patient: 15-24 minutes
[2019-04-27] MEDS: CLOPIDOGREL BISULFATE 75 MG TABLET PO SCH (09:17)
[2019-04-27] MEDS: LISINOPRIL 10 MG TABLET PO SCH ×2 (09:17→21:55)
[2019-04-27] MEDS: METOPROLOL SUCCINATE 50 MG TAB.SR.24H PO SCH ×2 (09:17→21:55)
[2019-04-27] MEDS: SPIRONOLACTONE 25 MG TABLET PO SCH (09:17)
[2019-04-27] MEDS: DOCUSATE SODIUM 100 MG CAPSULE PO SCH (09:17)
[2019-04-27] MEDS: FAMOTIDINE 20 MG TABLET PO SCH ×2 (09:17→21:56)
[2019-04-27] MEDS: MORPHINE SULFATE 10 MG/ML INJ IV PRN ×3 (09:22→20:21)
[2019-04-27] MEDS: AZITHROMYCIN 250 MG TABLET PO SCH (15:38)
[2019-04-27 16:31] LABS: ABSOLUTE BASOPHILS # (AUTO) 0.1 10^3/uL (0.0-0.2); ABSOLUTE EOSINOPHILS # (AUTO) 0.2 10^3/uL (0.0-0.6); ABSOLUTE LYMPHOCYTES (AUTO) 5.8 10^3/uL (0.5-4.7); ABSOLUTE MONOCYTES (AUTO) 0.9 10^3/uL (0.1-1.4); ABSOLUTE NEUT (AUTO) 10.3 10^3/uL (1.7-8.2); BASOPHILS % (AUTO) 0.7 % (0-2); EOSINOPHILS % (AUTO) 1.4 % (0-6); HEMATOCRIT 34.9 % (36.0-47.0); HEMOGLOBIN 11.2 g/dL (12.0-15.5); LYMPHOCYTES % (AUTO) 33.5 % (13-45); MEAN CORPUSCULAR HEMOGLOBIN 25.6 pg (27.0-33.4); MEAN CORPUSCULAR HGB CONC 32.2 g/dL (32.0-36.0); MEAN CORPUSCULAR VOLUME 80 fl (80-97); MONOCYTES % (AUTO) 5.1 % (3-13); PLATELET COUNT 482 10^3/uL (150-450); RED BLOOD COUNT 4.39 10^6/uL (3.72-5.28); RED CELL DISTRIBUTION WIDTH 17.5 % (11.5-14.0); SEGMENTED NEUTROPHILS % (AUTO) 59.3 % (42-78); TOTAL CELLS COUNTED % (AUTO) 100 %; WHITE BLOOD COUNT 17.4 10^3/uL (4.0-10.5)
[2019-04-27] MEDS: CEFTRIAXONE 1 GM/D5W RTU 1 GM/50 ML RTUPB IV SCH (17:46)
[2019-04-27] MEDS: ATORVASTATIN CALCIUM 40 MG TABLET PO SCH (21:55)
[2019-04-28] MEDS: LEVALBUTEROL HCL NEB 1.25 MG/3 ML AMPUL NEB SCH ×3 (00:22→15:49)
[2019-04-28] MEDS: IPRATROPIUM BROMIDE 0.02% NEB 0.5 MG/2.5 ML AMPUL NEB SCH ×3 (00:22→15:49)
[2019-04-28] MEDS: MORPHINE SULFATE 10 MG/ML INJ IV PRN ×2 (01:14→06:20)
[2019-04-28] MEDS: BENZOCAINE/MENTHOL SORE THROAT LOZENGE BUCCAL PRN ×2 (01:44→06:20)
[2019-04-28 05:43] LABS: ANION GAP 12 (5-19); BLOOD UREA NITROGEN 33 mg/dL (7-20); CALCIUM 9.1 mg/dL (8.4-10.2); CARBON DIOXIDE 27 mmol/L (22-30); CHLORIDE 97 mmol/L (98-107); GLUCOSE 97 mg/dL (75-110); POTASSIUM 4.6 mmol/L (3.6-5.0)
[2019-04-28] MEDS: HEPARIN SOD (PORCINE) 5,000 UNIT/ML 1 ML VIAL SUBCUT SCH ×3 (06:21→22:41)
[2019-04-28] MEDS: TORSEMIDE 20 MG TABLET PO SCH ×2 (06:32→12:49)
[2019-04-28] MEDS: METOPROLOL SUCCINATE 50 MG TAB.SR.24H PO SCH ×2 (09:51→22:41)
[2019-04-28] MEDS: LISINOPRIL 10 MG TABLET PO SCH ×2 (09:51→22:42)
[2019-04-28] MEDS: CLOPIDOGREL BISULFATE 75 MG TABLET PO SCH (09:51)
[2019-04-28] MEDS: DOCUSATE SODIUM 100 MG CAPSULE PO SCH (09:51)
[2019-04-28] MEDS: SPIRONOLACTONE 25 MG TABLET PO SCH (09:51)
[2019-04-28] MEDS: FAMOTIDINE 20 MG TABLET PO SCH ×2 (09:52→22:41)
[2019-04-28] MEDS: AZITHROMYCIN 250 MG TABLET PO SCH (09:52)
[2019-04-28] MEDS: PROMETHAZINE HCL INJ 25 MG/1 ML VIAL IV PRN (09:54)
[2019-04-28] MEDS ORDERED: GUAIFENESIN/CODEINE PHOS 100-10 MG/ 5 ML UDC PO PRN (12:23)
--- NOTE | 2019-04-28 12:32 | PDOC PROGRESS REPORT ---
Subjective Progress Note for:: 04/28/19 Subjective:: Patient says she feels slightly better. Still has a cough with yellowish productive sputum. Reason For Visit: ACUTE CONGESTIVE HEART FAILURE,ACUTE PULMONARY Physical Exam Vital Signs: Temp Pulse Resp BP Pulse Ox 97.7 F 70 14 123/78 98 04/28/19 04:03 04/28/19 08:35 04/28/19 08:35 04/28/19 04:03 04/28/19 08:35 Intake & Output 04/27/19 04/28/19 04/29/19 06:59 06:59 06:59 Intake Total 3420 1500 Output Total 4500 3000 Balance -1080 -1500 Weight 86.4 kg 88.1 kg General appearance: PRESENT: no acute distress, well-developed, well-nourished Head exam: PRESENT: atraumatic, normocephalic Eye exam: PRESENT: conjunctiva pink, EOMI, PERRLA. ABSENT: scleral icterus Mouth exam: PRESENT: tongue midline Neck exam: ABSENT: carotid bruit, JVD, lymphadenopathy, thyromegaly Respiratory exam: PRESENT: rhonchi, unlabored. ABSENT: rales, wheezes Cardiovascular exam: PRESENT: RRR, +S1, +S2. ABSENT: diastolic murmur, rubs, systolic murmur Pulses: PRESENT: normal dorsalis pedis pul Vascular exam: PRESENT: normal capillary refill GI/Abdominal exam: PRESENT: normal bowel sounds, soft. ABSENT: distended, guarding, mass, organolmegaly, rebound, tenderness Rectal exam: PRESENT: deferred Extremities exam: PRESENT: full ROM. ABSENT: calf tenderness, clubbing, pedal edema Neurological exam: PRESENT: alert, awake, oriented to person, oriented to place, oriented to time, oriented to situation, CN II-XII grossly intact. ABSENT: motor sensory deficit Psychiatric exam: PRESENT: appropriate affect, normal mood. ABSENT: homicidal ideation, suicidal ideation Skin exam: PRESENT: dry, intact, warm. ABSENT: cyanosis, rash Results Laboratory Results: 04/27/19 16:24 04/28/19 05:01 04/27/19 04/28/19 16:24 05:01 WBC 17.4 H RBC 4.39 Hgb 11.2 L Hct 34.9 L MCV 80 MCH 25.6 L MCHC 32.2 RDW 17.5 H Plt Count 482 H Seg Neutrophils % 59.3 Sodium 136.0 L Potassium 4.6 Chloride 97 L Carbon Dioxide 27 Anion Gap 12 BUN 33 H Creatinine 0.82 Est GFR ( Amer) > 60 Glucose 97 Calcium 9.1 04/25/19 04/25/19 04/26/19 15:05 15:05 01:02 Creatine Kinase 22 L CK-MB (CK-2) Troponin I 0.014 NT-Pro-B Natriuret Pep 2950 H 04/26/19 04/26/19 04/26/19 01:02 05:30 05:30 Creatine Kinase 26 L CK-MB (CK-2) 0.59 0.75 Troponin I < 0.012 < 0.012 NT-Pro-B Natriuret Pep 04/26/19 04/26/19 11:21 11:21 Creatine Kinase 20 L CK-MB (CK-2) 0.72 Troponin I < 0.012 NT-Pro-B Natriuret Pep Impressions: Chest X-Ray 04/25/19 13:47 IMPRESSION: Diffuse bilateral perihilar and alveolar airspace disease. There is a nodular component on the left. This most likely represents pulmonary edema. Follow-up films are recommended. Chest CT 04/25/19 18:15 IMPRESSION: Bilateral perihilar groundglass opacities, suggestive of multifocal pneumonia. Assessment and Plan - Diagnosis (1) Acute congestive heart failure Qualifiers: Heart failure type: unspecified Qualified Code(s): I50.9 - Heart failure, unspecified Is this a current diagnosis for this admission?: Yes (2) Acute pulmonary edema with congestive heart failure Is this a current diagnosis for this admission?: Yes (3) COPD with exacerbation Is this a current diagnosis for this admission?: Yes (4) Leukocytosis Is this a current diagnosis for this admission?: Yes Plan: Improving (5) Pneumonia Qualifiers: Is this a current diagnosis for this admission?: Yes Plan: CT scan shows bilateral perihilar groundglass opacities suggestive of multifocal pneumonia. Patient is currently on ceftriaxone and Zithromax. Follow-up chest x-ray as needed (6) Tobacco abuse Is this a current diagnosis for this admission?: Yes (7) Medically noncompliant Is this a current diagnosis for this admission?: Yes (8) Cardiomyopathy Is this a current diagnosis for this admission?: Yes Plan: With ejection fraction of 40 to 45% as well as diastolic dysfunction. Patient advised on the need to be compliant with her medications - Plan Summary Summary: Patient also is being treated for pneumonia. She has diuresed pretty well however she still has symptoms suggestive of pneumonia. She was placed on Zithromax and ceftriaxone. Sputum cultures currently pending. We will add antitussives to her regimen. We will decrease her morphine dose. We will continue to adjust her other medications as appropriate
[2019-04-28 15:03] LABS: ABSOLUTE BASOPHILS # (AUTO) 0.1 10^3/uL (0.0-0.2); ABSOLUTE EOSINOPHILS # (AUTO) 0.2 10^3/uL (0.0-0.6); ABSOLUTE LYMPHOCYTES (AUTO) 3.8 10^3/uL (0.5-4.7); ABSOLUTE MONOCYTES (AUTO) 0.9 10^3/uL (0.1-1.4); ABSOLUTE NEUT (AUTO) 8.3 10^3/uL (1.7-8.2); BASOPHILS % (AUTO) 0.8 % (0-2); EOSINOPHILS % (AUTO) 1.7 % (0-6); HEMATOCRIT 36.9 % (36.0-47.0); HEMOGLOBIN 12.8 g/dL (12.0-15.5); LYMPHOCYTES % (AUTO) 28.6 % (13-45); MEAN CORPUSCULAR HEMOGLOBIN 27.1 pg (27.0-33.4); MEAN CORPUSCULAR HGB CONC 34.6 g/dL (32.0-36.0); MEAN CORPUSCULAR VOLUME 78 fl (80-97); MONOCYTES % (AUTO) 6.6 % (3-13); PLATELET COUNT 544 10^3/uL (150-450); RED BLOOD COUNT 4.71 10^6/uL (3.72-5.28); RED CELL DISTRIBUTION WIDTH 17.3 % (11.5-14.0); SEGMENTED NEUTROPHILS % (AUTO) 62.3 % (42-78); TOTAL CELLS COUNTED % (AUTO) 100 %; WHITE BLOOD COUNT 13.3 10^3/uL (4.0-10.5)
[2019-04-28] MEDS: CEFTRIAXONE 1 GM/D5W RTU 1 GM/50 ML RTUPB IV SCH (17:07)
[2019-04-28] MEDS: ATORVASTATIN CALCIUM 40 MG TABLET PO SCH (22:41)
[2019-04-28] MEDS: LEVOFLOXACIN 750 MG TABLET PO ONE ×2 (22:41→22:44)
[2019-04-28] MEDS ORDERED: LEVOFLOXACIN 750 MG TABLET PO ONE (23:00)
[2019-04-29] MEDS: LEVALBUTEROL HCL NEB 1.25 MG/3 ML AMPUL NEB SCH ×4 (00:38→23:59)
[2019-04-29] MEDS: IPRATROPIUM BROMIDE 0.02% NEB 0.5 MG/2.5 ML AMPUL NEB SCH ×4 (00:38→23:59)
[2019-04-29] MEDS: TORSEMIDE 20 MG TABLET PO SCH ×2 (06:28→12:18)
[2019-04-29] MEDS: HEPARIN SOD (PORCINE) 5,000 UNIT/ML 1 ML VIAL SUBCUT SCH ×3 (06:29→21:21)
[2019-04-29] MEDS: MORPHINE SULFATE 10 MG/ML INJ IV PRN ×2 (06:36→20:26)
[2019-04-29] MEDS: PROMETHAZINE HCL INJ 25 MG/1 ML VIAL IV PRN ×2 (06:36→20:27)
[2019-04-29] MEDS: LISINOPRIL 10 MG TABLET PO SCH ×2 (09:44→21:24)
[2019-04-29] MEDS: METOPROLOL SUCCINATE 50 MG TAB.SR.24H PO SCH (09:44)
[2019-04-29] MEDS: SPIRONOLACTONE 25 MG TABLET PO SCH (09:44)
[2019-04-29] MEDS: FAMOTIDINE 20 MG TABLET PO SCH ×2 (09:45→21:21)
[2019-04-29] MEDS: DOCUSATE SODIUM 100 MG CAPSULE PO SCH (09:45)
[2019-04-29] MEDS: LEVOFLOXACIN 750 MG TABLET PO SCH (09:45)
[2019-04-29] MEDS: CLOPIDOGREL BISULFATE 75 MG TABLET PO SCH (09:45)
--- NOTE | 2019-04-29 15:00 | PDOC PROGRESS REPORT ---
Subjective Progress Note for:: 04/29/19 Subjective:: Patient says she feels slightly better. Still has a cough with yellowish productive sputum But reports overall improvement Reason For Visit: ACUTE CONGESTIVE HEART FAILURE,ACUTE PULMONARY Physical Exam Vital Signs: Temp Pulse Resp BP Pulse Ox 97.4 F 59 L 16 128/68 H 95 04/29/19 04:33 04/29/19 08:22 04/29/19 08:22 04/29/19 04:33 04/29/19 08:22 Intake & Output 04/28/19 04/29/19 04/30/19 06:59 06:59 06:59 Intake Total 1550 2527 Output Total 3000 4100 Balance -1450 -1573 Weight 88.1 kg 87.1 kg General appearance: PRESENT: no acute distress, obese Mouth exam: PRESENT: neck supple Neck exam: PRESENT: full ROM. ABSENT: JVD Respiratory exam: PRESENT: crackles, decreased breath sounds, rhonchi, unlabored Cardiovascular exam: PRESENT: RRR, +S1, +S2 GI/Abdominal exam: PRESENT: soft Rectal exam: PRESENT: deferred Neurological exam: PRESENT: alert, awake, oriented to person, oriented to place, oriented to time Psychiatric exam: PRESENT: appropriate affect Results Laboratory Results: 04/28/19 14:30 04/28/19 05:01 04/28/19 14:30 WBC 13.3 H RBC 4.71 Hgb 12.8 Hct 36.9 MCV 78 L MCH 27.1 MCHC 34.6 RDW 17.3 H Plt Count 544 H Seg Neutrophils % 62.3 04/25/19 04/25/19 04/26/19 15:05 15:05 01:02 Creatine Kinase 22 L CK-MB (CK-2) Troponin I 0.014 NT-Pro-B Natriuret Pep 2950 H 04/26/19 04/26/19 04/26/19 01:02 05:30 05:30 Creatine Kinase 26 L CK-MB (CK-2) 0.59 0.75 Troponin I < 0.012 < 0.012 NT-Pro-B Natriuret Pep 04/26/19 04/26/19 11:21 11:21 Creatine Kinase 20 L CK-MB (CK-2) 0.72 Troponin I < 0.012 NT-Pro-B Natriuret Pep Impressions: Chest X-Ray 04/25/19 13:47 IMPRESSION: Diffuse bilateral perihilar and alveolar airspace disease. There is a nodular component on the left. This most likely represents pulmonary edema. Follow-up films are recommended. Chest CT 04/25/19 18:15 IMPRESSION: Bilateral perihilar groundglass opacities, suggestive of multifocal pneumonia. Assessment and Plan - Diagnosis (1) Acute congestive heart failure Qualifiers: Heart failure type: unspecified Qualified Code(s): I50.9 - Heart failure, unspecified Is this a current diagnosis for this admission?: Yes Plan: Continue with Lasix, echocardiogram shows ejection fraction of 40%. We will continue to diurese and adjust medications as appropriate Albumin is noted to be increased secondary to the diuresis. We will decrease her torsemide (2) Acute pulmonary edema with congestive heart failure Is this a current diagnosis for this admission?: Yes Plan: Due to noncompliance. Patient states she has been out of her medication for weeks due to insurance issues Patient advised on the need to be compliant with her medications (3) COPD with exacerbation Is this a current diagnosis for this admission?: Yes Plan: Continue with bronchodilators. Patient had received a dose of steroids in the emergency room likely explaining her leukocytosis This time I see no need for reinstating steroids as she seems to be improving (4) Leukocytosis Is this a current diagnosis for this admission?: Yes Plan: Improving (5) Pneumonia Qualifiers: Is this a current diagnosis for this admission?: Yes Plan: CT scan shows bilateral perihilar groundglass opacities suggestive of multifocal pneumonia. Patient is currently on oral Levaquin due to vascular access and she seems to be improving. Follow-up sputum culture and chest x-ray as needed (6) Tobacco abuse Is this a current diagnosis for this admission?: Yes (7) Medically noncompliant Is this a current diagnosis for this admission?: Yes (8) Cardiomyopathy Is this a current diagnosis for this admission?: Yes Plan: With ejection fraction of 40 to 45% as well as diastolic dysfunction. Patient advised on the need to be compliant with her medications Social service has been contacted so that patient can be helped with had needs. We will also order for heart failure teaching - Plan Summary Summary: Patient also is being treated for pneumonia. She has diuresed pretty well however she still has symptoms suggestive of pneumonia. She was placed on Zithromax and ceftriaxone. Sputum cultures currently pending. We will add antitussives to her regimen. We will decrease her morphine dose. We will continue to adjust her other medications as appropriate
[2019-04-29 15:25] LABS: ABSOLUTE BASOPHILS # (AUTO) 0.1 10^3/uL (0.0-0.2); ABSOLUTE EOSINOPHILS # (AUTO) 0.2 10^3/uL (0.0-0.6); ABSOLUTE LYMPHOCYTES (AUTO) 3.7 10^3/uL (0.5-4.7); ABSOLUTE NEUT (AUTO) 8.6 10^3/uL (1.7-8.2); BASOPHILS % (AUTO) 0.9 % (0-2); EOSINOPHILS % (AUTO) 1.6 % (0-6); HEMATOCRIT 38.4 % (36.0-47.0); HEMOGLOBIN 12.5 g/dL (12.0-15.5); LYMPHOCYTES % (AUTO) 26.9 % (13-45); MEAN CORPUSCULAR HEMOGLOBIN 25.8 pg (27.0-33.4); MEAN CORPUSCULAR HGB CONC 32.6 g/dL (32.0-36.0); MEAN CORPUSCULAR VOLUME 79 fl (80-97); MONOCYTES % (AUTO) 7.2 % (3-13); PLATELET COUNT 549 10^3/uL (150-450); RED BLOOD COUNT 4.86 10^6/uL (3.72-5.28); RED CELL DISTRIBUTION WIDTH 17.4 % (11.5-14.0); SEGMENTED NEUTROPHILS % (AUTO) 63.4 % (42-78); TOTAL CELLS COUNTED % (AUTO) 100 %; WHITE BLOOD COUNT 13.7 10^3/uL (4.0-10.5)
[2019-04-29 15:44] LABS: ANION GAP 14 (5-19); BLOOD UREA NITROGEN 38 mg/dL (7-20); CALCIUM 9.5 mg/dL (8.4-10.2); CARBON DIOXIDE 25 mmol/L (22-30); CHLORIDE 96 mmol/L (98-107); GLUCOSE 105 mg/dL (75-110)
[2019-04-29] MEDS: CEFTRIAXONE 1 GM/D5W RTU 1 GM/50 ML RTUPB IV SCH (17:13)
[2019-04-29] MEDS ORDERED: CEFTRIAXONE 1 GM/D5W RTU 1 GM/50 ML RTUPB IV ONE (21:00)
[2019-04-29] MEDS: ATORVASTATIN CALCIUM 40 MG TABLET PO SCH (21:21)
[2019-04-29] MEDS ORDERED: METOPROLOL SUCCINATE 50 MG TAB.SR.24H PO SCH (22:00)
[2019-04-30] MEDS: MORPHINE SULFATE 10 MG/ML INJ IV PRN ×2 (02:59→07:00)
[2019-04-30] MEDS: PROMETHAZINE HCL INJ 25 MG/1 ML VIAL IV PRN ×2 (03:00→07:00)
[2019-04-30] MEDS: HEPARIN SOD (PORCINE) 5,000 UNIT/ML 1 ML VIAL SUBCUT SCH ×2 (06:25→13:55)
[2019-04-30 08:29] LABS: HEMATOCRIT 39.2 % (36.0-47.0); HEMOGLOBIN 12.9 g/dL (12.0-15.5); MEAN CORPUSCULAR HEMOGLOBIN 26.1 pg (27.0-33.4); MEAN CORPUSCULAR HGB CONC 32.8 g/dL (32.0-36.0); MEAN CORPUSCULAR VOLUME 79 fl (80-97); PLATELET COUNT 531 10^3/uL (150-450); RED BLOOD COUNT 4.94 10^6/uL (3.72-5.28); RED CELL DISTRIBUTION WIDTH 17.1 % (11.5-14.0); WHITE BLOOD COUNT 11.5 10^3/uL (4.0-10.5)
[2019-04-30] MEDS: LEVALBUTEROL HCL NEB 1.25 MG/3 ML AMPUL NEB SCH ×2 (09:02→16:05)
[2019-04-30] MEDS: IPRATROPIUM BROMIDE 0.02% NEB 0.5 MG/2.5 ML AMPUL NEB SCH ×2 (09:02→16:05)
[2019-04-30] MEDS: SPIRONOLACTONE 25 MG TABLET PO SCH (09:12)
[2019-04-30] MEDS: LISINOPRIL 10 MG TABLET PO SCH (09:12)
[2019-04-30] MEDS: DOCUSATE SODIUM 100 MG CAPSULE PO SCH (09:12)
[2019-04-30] MEDS: FAMOTIDINE 20 MG TABLET PO SCH (09:13)
[2019-04-30] MEDS: CLOPIDOGREL BISULFATE 75 MG TABLET PO SCH (09:13)
[2019-04-30] MEDS: LEVOFLOXACIN 750 MG TABLET PO SCH (09:13)
[2019-04-30] MEDS ORDERED: TORSEMIDE 20 MG TABLET PO SCH (10:00)
[2019-04-30] MEDS ORDERED: METOPROLOL SUCCINATE 50 MG TAB.SR.24H PO SCH (10:00)
--- NOTE | 2019-04-30 12:04 | PDOC DISCHARGE SUMMARY ---
Impression - Admit/DC Date/PCP Admission Date/Primary Care Provider: 04/25/19 23:45 Discharge Date: 04/30/19 - Discharge Diagnosis (1) Acute combined systolic (congestive) and diastolic (congestive) heart failure Is this a current diagnosis for this admission?: Yes (2) Community acquired bacterial pneumonia Is this a current diagnosis for this admission?: Yes (3) COPD with exacerbation Is this a current diagnosis for this admission?: Yes (4) Leukocytosis Is this a current diagnosis for this admission?: Yes (5) Medically noncompliant Is this a current diagnosis for this admission?: Yes (6) Tobacco abuse Is this a current diagnosis for this admission?: Yes (7) Hyperlipidemia Is this a current diagnosis for this admission?: Yes - Additional Information Resuscitation Status: Full Code Discharge Diet: Cardiac Discharge Activity: Activity As Tolerated, Balance Activity w/Rest, Weigh Daily [facility] - 05/04/19 4:00 pm (with Shelly Monroy) REJI CASPER MD [ACTIVE STAFF] - GRAHAM AGUERO MD [ACTIVE STAFF] - Prescriptions: Aspirin [Aspir-Low] 81 mg PO DAILY #30 tablet. Torsemide [Demadex 20 mg Tablet] 20 mg PO DAILY #30 tablet Levofloxacin [Levaquin 750 mg Tablet] 750 mg PO DAILY #3 tablet Atorvastatin Calcium [Lipitor 40 mg Tablet] 40 mg PO QHS #30 tablet Lisinopril [Prinivil 10 mg Tablet] 10 mg PO Q12 #60 tablet Albuterol Sulfate [Proair Hfa Inhalation Aerosol 8.5 gm Mdi] 2 puff IH Q6HP PRN #1 inhaler PRN Reason: Budesonide [Pulmicort 90 mcg Flexhaler] 1 inh IH DAILY #1 aer.[email or web address] Metoprolol Succinate [Toprol Xl 50 mg Tab.sr] 25 mg PO Q12 #60 tab.sr.24h Home Medications: Albuterol Sulfate [Proair Hfa Inhalation Aerosol 8.5 gm Mdi] 2 puff IH Q6HP PRN #1 inhaler 04/30/19 Aspirin [Aspir-Low] 81 mg PO DAILY #30 tablet. 04/30/19 Atorvastatin Calcium [Lipitor 40 mg Tablet] 40 mg PO QHS #30 tablet 04/30/19 Budesonide [Pulmicort 90 mcg Flexhaler] 1 inh IH DAILY #1 aer.pow.ba 04/30/19 Levofloxacin [Levaquin 750 mg Tablet] 750 mg PO DAILY #3 tablet 04/30/19 Lisinopril [Prinivil 10 mg Tablet] 10 mg PO Q12 #60 tablet 04/30/19 Metoprolol Succinate [Toprol Xl 50 mg Tab.sr] 25 mg PO Q12 #60 tab.sr.24h 04/30/19 Torsemide [Demadex 20 mg Tablet] 20 mg PO DAILY #30 tablet 04/30/19 History of Present Illiness History of Present Illness: ADRIANA MENDOZA is a 43 year old female who presents the emergency room with a one-week history of dyspnea. Patient admits that approximately 1 week ago she was exposed to some paint fumes in the hallway at her residence and had an asthma attack because of that. Since that time she acknowledges progressively worsening dyspnea, worsened by exertion and accompanied by orthopnea. She also acknowledges associated symptoms of intermittent diaphoresis, occasional brief chest pains, occasional wheezing, episodes of migraine headache, cough occasionally productive of small amounts of greenish mucus, dry mouth and episodic diarrhea. Her dyspnea rapidly became much more severe on the day of admission causing her to present to the emergency room. She denies other associated or accompanying signs and symptoms. She admits prior similar ep isodes related to her COPD/asthma. She has not identified any additional aggravating or ameliorating factors for her dyspnea. In the emergency room she was found to be tachypneic, tachycardic, hypoxic, orthopneic and was noted to have an elevated BNP confirming pulmonary edema/acute congestive heart failure noted on her chest x-ray and CT of the chest. She was subsequently admitted to the hospital for further evaluation and treatment. Hospital Course Hospital Course: Patient was admitted and treated for respiratory distress secondary to a combination of congestive heart failure, COPD exacerbation as well as multifocal pneumonia. CT scan revealed evidence of multifocal pneumonia. Patient also presented with elevated BNP which improved with diuresis. Patient was initially diuresed with spironolactone as well as twice daily torsemide. She was started on heart failure regimen. Notably patient had not been on medications for a while for heart failure and her COPD. Patient effectively diuresed on torsemide and his symptoms improved. Her torsemide dose has been decreased to a daily dosing in order to avoid overdiuresis. Spironolactone has been discontinued given ejection fraction above 35% and patient is currently NYHA class. Echocardiogram showed EF of 40 to 45% with moderate to mild systolic dysfunction as well as diastolic dysfunction of grade 2/4. For her pneumonia she was treated for community-acquired likely bacterial pneumonia and has been on Levaquin. She will be discharged with 3 more days of Levaquin to complete course of treatment. Patient's COPD has also improved and she will be discharged with rescue inhalers as well as budesonide inhaler daily. 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 Physical Exam Vital Signs: Temp Pulse Resp BP Pulse Ox 97.5 F 71 16 111/75 97 04/30/19 08:15 04/30/19 09:02 04/30/19 09:02 04/30/19 08:15 04/30/19 09:02 Intake & Output 04/29/19 04/30/19 05/01/19 06:59 06:59 06:59 Intake Total 2527 2341 Output Total 4100 2950 Balance -1573 -609 Weight 87.1 kg 87.3 kg General appearance: PRESENT: no acute distress, cooperative Neck exam: ABSENT: JVD Respiratory exam: PRESENT: clear to auscultation brett Neurological exam: PRESENT: alert, awake, oriented to person, oriented to place, oriented to time, oriented to situation Results Laboratory Results: WBC 11.5 10^3/uL (4.0-10.5) H 04/30/19 05:30 RBC 4.94 10^6/uL (3.72-5.28) 04/30/19 05:30 Hgb 12.9 g/dL (12.0-15.5) 04/30/19 05:30 Hct 39.2 % (36.0-47.0) 04/30/19 05:30 MCV 79 fl (80-97) L 04/30/19 05:30 MCH 26.1 pg (27.0-33.4) L 04/30/19 05:30 MCHC 32.8 g/dL (32.0-36.0) 04/30/19 05:30 RDW 17.1 % (11.5-14.0) H 04/30/19 05:30 Plt Count 531 10^3/uL (150-450) H 04/30/19 05:30 Lymph % (Auto) 26.9 % (13-45) 04/29/19 15:00 [place] % (Auto) 7.2 % (3-13) 04/29/19 15:00 Eos % (Auto) 1.6 % (0-6) 04/29/19 15:00 Baso % (Auto) 0.9 % (0-2) 04/29/19 15:00 Absolute Neuts (auto) 8.6 10^3/uL (1.7-8.2) H 04/29/19 15:00 Absolute Lymphs (auto) 3.7 10^3/uL (0.5-4.7) 04/29/19 15:00 Absolute Monos (auto) 1.0 10^3/uL (0.1-1.4) 04/29/19 15:00 Absolute Eos (auto) 0.2 10^3/uL (0.0-0.6) 04/29/19 15:00 Absolute Basos (auto) 0.1 10^3/uL (0.0-0.2) 04/29/19 15:00 Total Counted 100 04/27/19 05:17 Seg Neutrophils % 63.4 % (42-78) 04/29/19 15:00 Seg Neuts % (Manual) 73 % (42-78) 04/27/19 05:17 Lymphocytes % (Manual) 20 % (13-45) 04/27/19 05:17 Monocytes % (Manual) 7 % (3-13) 04/27/19 05:17 Eosinophils % (Manual) 0 % (0-6) 04/27/19 05:17 Basophils % (Manual) 0 % (0-2) 04/27/19 05:17 Abs Neuts (Manual) 16.2 10^3/uL (1.7-8.2) H 04/27/19 05:17 Abs Lymphs (Manual) 4.4 10^3/uL (0.5-4.7) 04/27/19 05:17 Abs Monocytes (Manual) 1.6 10^3/uL (0.1-1.4) H 04/27/19 05:17 Absolute Eos (Manual) 0.0 10^3/uL (0.0-0.6) 04/27/19 05:17 Abs Basophils (Manual) 0.0 10^3/uL (0.0-0.2) 04/27/19 05:17 Platelet Comment ADEQUATE 04/27/19 05:17 Polychromasia SLIGHT 04/27/19 05:17 Hypochromasia SLIGHT 04/27/19 05:17 Anisocytosis 1+ 04/27/19 05:17 Microcytosis SLIGHT 04/27/19 05:17 Sodium 134.9 mmol/L (137-145) L 04/29/19 15:00 Potassium 5.0 mmol/L (3.6-5.0) 04/29/19 15:00 Chloride 96 mmol/L (98-107) L 04/29/19 15:00 Carbon Dioxide 25 mmol/L (22-30) 04/29/19 15:00 Anion Gap 14 (5-19) 04/29/19 15:00 BUN 38 mg/dL (7-20) H 04/29/19 15:00 Creatinine 1.03 mg/dL (0.52-1.25) 04/29/19 15:00 Est GFR ( Amer) > 60 (>60) 04/29/19 15:00 Est GFR (MDRD) Non-Af 58 (>60) L 04/29/19 15:00 Glucose 105 mg/dL (75-110) 04/29/19 15:00 Lactic Acid 4.2 mmol/L (0.7-2.1) H 04/26/19 01:02 Calcium 9.5 mg/dL (8.4-10.2) 04/29/19 15:00 Magnesium 2.1 mg/dL (1.6-2.3) 04/27/19 05:17 Total Bilirubin 0.8 mg/dL (0.2-1.3) 04/25/19 15:05 Direct Bilirubin 0.3 mg/dL (0.0-0.4) 04/25/19 15:05 Neonat Total Bilirubin Not Reportable 04/25/19 15:05 Neonat Direct Bilirubin Not Reportable 04/25/19 15:05 Neonat Indirect Bili Not Reportable 04/25/19 15:05 AST 19 U/L (14-36) 04/25/19 15:05 ALT 18 U/L (<35) 04/25/19 15:05 Alkaline Phosphatase 101 U/L (38-126) 04/25/19 15:05 Creatine Kinase 20 U/L (30-135) L 04/26/19 11:21 CK-MB (CK-2) 0.72 ng/mL (<4.55) 04/26/19 11:21 Troponin I < 0.012 ng/mL 04/26/19 11:21 NT-Pro-B Natriuret Pep 203 pg/mL (<125) H 04/30/19 05:30 Total Protein 7.7 g/dL (6.3-8.2) 04/25/19 15:05 Albumin 3.9 g/dL (3.5-5.0) 04/25/19 15:05 Triglycerides 93 mg/dL (<150) 04/26/19 05:30 Cholesterol 254.38 mg/dL (0-200) H 04/26/19 05:30 LDL Cholesterol Direct 203 mg/dL (<100) H 04/26/19 05:30 VLDL Cholesterol 19.0 mg/dL (10-31) 04/26/19 05:30 HDL Cholesterol 45 mg/dL (>40) 04/26/19 05:30 TSH 1.59 uIU/mL (0.47-4.68) 04/25/19 15:05 Urine Color YELLOW 04/25/19 18:25 Urine Appearance SLIGHTLY-CLOUDY 04/25/19 18:25 Urine pH 6.0 (5.0-9.0) 04/25/19 18:25 Ur Specific [place] 1.023 04/25/19 18:25 Urine Protein 30 mg/dL (NEGATIVE) H 04/25/19 18:25 Urine Glucose (UA) NEGATIVE mg/dL (NEGATIVE) 04/25/19 18:25 Urine Ketones 20 mg/dL (NEGATIVE) H 04/25/19 18:25 Urine Blood NEGATIVE (NEGATIVE) 04/25/19 18:25 Urine Nitrite NEGATIVE (NEGATIVE) 04/25/19 18:25 Urine Bilirubin NEGATIVE (NEGATIVE) 04/25/19 18:25 Urine Urobilinogen NEGATIVE mg/dL (<2.0) 04/25/19 18:25 Ur Leukocyte Esterase NEGATIVE (NEGATIVE) 04/25/19 18:25 Urine WBC (Auto) 3 /HPF 04/25/19 18:25 Urine RBC (Auto) 2 /HPF 04/25/19 18:25 Squamous Epi Cells Auto 4 /HPF 04/25/19 18:25 Urine Mucus (Auto) OCC /LPF 04/25/19 18:25 Urine Ascorbic Acid NEGATIVE (NEGATIVE) 04/25/19 18:25 04/25/19 04/25/19 04/26/19 15:05 15:05 01:02 CK-MB (CK-2) 0.59 Troponin I 0.014 < 0.012 NT-Pro-B Natriuret Pep 2950 H 04/26/19 04/26/19 04/30/19 05:30 11:21 05:30 CK-MB (CK-2) 0.75 0.72 Troponin I < 0.012 < 0.012 NT-Pro-B Natriuret Pep 203 H Impressions: Chest X-Ray 04/25/19 13:47 IMPRESSION: Diffuse bilateral perihilar and alveolar airspace disease. There is a nodular component on the left. This most likely represents pulmonary edema. Follow-up films are recommended. Chest CT 04/25/19 18:15 IMPRESSION: Bilateral perihilar groundglass opacities, suggestive of multifocal pneumonia. Plan Time Spent: Greater than 30 Minutes Stroke Is this a Stroke Patient?: No Acute Heart Failure - Is this a Heart Failure Patient?: Yes Documentation of LVEF assessment?: Yes LVEF < 40%?: No- if no continue to question #3 3. Anticoagulant therapy for permanect/persistent/paraoxysmal Afib or Aflutter: N/A
[2019-04-30 14:40] VITALS: BP 135/85
[2019-04-30] MEDS ORDERED: CEFTRIAXONE 1 GM/D5W RTU 1 GM/50 ML RTUPB IV SCH (18:00)
== END 2019-04-30 16:04 | disposition home or self-care (01) | DRG 291 ==
LOC: ER 13:34 → EH 23:45 → 3W 04-26 02:05
PROVIDERS: ADMIT Emergency Medicine; ATTEND Emergency Medicine
DX: I11.0 Hypertensive heart disease with heart failure (principal); J15.9 Unspecified bacterial pneumonia; J96.01 Acute respiratory failure with hypoxia; J44.1 Chronic obstructive pulmonary disease with (acute) exacerbation; J44.0 Chronic obstructive pulmonary disease with (acute) lower respiratory infection; I50.41 Acute combined systolic (congestive) and diastolic (congestive) heart failure; E78.5 Hyperlipidemia, unspecified; E66.9 Obesity, unspecified; F32.9 Major depressive disorder, single episode, unspecified; F43.10 Post-traumatic stress disorder, unspecified; F17.210 Nicotine dependence, cigarettes, uncomplicated; I42.9 Cardiomyopathy, unspecified; E78.00 Pure hypercholesterolemia, unspecified; Z91.14 Patient's other noncompliance with medication regimen; Z79.899 Other long term (current) drug therapy; Z79.82 Long term (current) use of aspirin; Z88.8 Allergy status to other drugs, medicaments and biological substances; Z68.32 Body mass index [BMI] 32.0-32.9, adult; Z59.9 Problem related to housing and economic circumstances, unspecified
CPT/HCPCS: 36415; 71046; 71260; 80048; 80053; 80061; 81001; 82550; 82553; 83605; 83735; 83880; 84443; 84484; 85025; 85027; 87040; 87070; 87205; 93005; 93010; 93306; 96365; 96367; 96375; 99285; J0696; J1644; J1940; J2270; J2543; J2550; J2930; J3370; J3490; J7620

== ENCOUNTER 2019-07-26 10:27 | Emergency (ER) | payer SELFPAY ==
--- NOTE | 2019-07-26 10:45 | ER Document Report ---
ED Medical Screen (RME) - General Stated Complaint: STD CHECK/URINARY ISSUES Time Seen by Provider: 07/26/19 10:34 TRAVEL OUTSIDE OF THE [place] IN LAST 30 DAYS: No - HPI Notes: 07/26/19 10:41 43-year-old female with a history of nephrolithiasis and gonorrhea presents emergency room with complaints of bilateral flank pain that radiates to her pelvic area for the last 3 days. Patient reports pain is constant, 3 out of 5. No [id number] medications have been tried. Patient reports she has been with a new partner, does not use protection consistently. Reports yellow vaginal discharge along with her menstrual cycle. Denies any n/v/d, fevers/chills, chest pain, sob, abdominal pain. I have greeted and performed a rapid initial assessment of this patient. A comprehensive ED assessment and evaluation of the patient, analysis of test results and completion of the medical decision making process will be conducted by additional ED providers. PHYSICAL EXAMINATION: GENERAL: Well-appearing, well-nourished and in no acute distress. CV: s1, s2 regular LUNGS: No respiratory distress abd: bilateral cva tenderness slightly on palpation, suprapubic tenderness on palpation. - Related Data Allergies/Adverse Reactions: prochlorperazine edisylate [From Compazine] Allergy (Severe, Verified 04/25/19 13:45) Facial swelling prochlorperazine maleate [From Compazine] Allergy (Severe, Verified 04/25/19 13:45) Facial swelling verapamil [Verapamil] Allergy (Intermediate, Verified 04/25/19 13:45) Pruritis Past Medical History - Past Medical History Cardiac Medical History: Reports: Hx Hypercholesterolemia, Hx Hypertension Denies: Hx Atrial Fibrillation, Hx Congestive Heart Failure, Hx Coronary Artery Disease, Hx DVT, Hx Heart Attack, Hx Peripheral Vascular Disease, Hx Pulmonary Embolism Pulmonary Medical History: Reports: Hx Asthma, Hx COPD Denies: Hx Bronchitis, Hx Pneumonia Neurological Medical History: Denies: Hx Seizures Endocrine Medical History: Denies: Hx Diabetes Mellitus Type 1, Hx Diabetes Mellitus Type 2, Hx Hyperthyroidism, Hx Hypothyroidism Renal/ Medical History: Reports: Hx Kidney Stones. Denies: Hx Peritoneal Dialysis GI Medical History: Denies: Hx Cirrhosis, Hx Crohn's Disease, Hx Gastroesophageal Reflux Disease, Hx Hepatitis, Hx Ulcerative Colitis Musculoskeltal Medical History: Denies Hx Arthritis, Denies Hx Gout, Reports Hx Musculoskeletal Deformity, Reports Hx Musculoskeletal Trauma Skin Medical History: Reports Hx Eczema, Reports Hx Psoriasis Psychiatric Medical History: Reports: Hx Anxiety, Hx Depression, Hx Post Traumatic Stress Disorder Traumatic Medical History: Reports: Hx Fractures Infectious Medical History: Denies: Hx Hepatitis Past Surgical History: Reports: Hx Section, Hx Tonsillectomy, Hx Urinary Tract Surgery - 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 Denies: Hx Pacemaker - Immunizations Hx Diphtheria, Pertussis, Tetanus Vaccination: Yes
[2019-07-26 11:04] LABS: APPEARANCE,URINE SLIGHTLY-CLOUDY; BILIRUBIN,URINE NEGATIVE (NEGATIVE); COLOR,URINE YELLOW; GLUCOSE, URINE NEGATIVE (NEGATIVE); KETONES,URINE NEGATIVE (NEGATIVE); LEUKOCYTE ESTERASE,URINE LARGE (NEGATIVE); NITRITE,URINE NEGATIVE (NEGATIVE); PROTEIN,URINE NEGATIVE (NEGATIVE); UROBILINOGEN,URINE NEGATIVE mg/dL (<2.0)
--- NOTE | 2019-07-26 11:36 | ER Document Report ---
ED GI/ - General Chief Complaint: Abdominal Pain Stated Complaint: STD CHECK/URINARY ISSUES Time Seen by Provider: 07/26/19 10:34 Primary Care Provider: LUH CASPER MD [ACTIVE STAFF] - Follow up as needed Mode of Arrival: Ambulatory Information source: Patient Notes: 43-year-old female past medical history significant for hypertension, hyperlipidemia, COPD, CHF, kidney stones, gonorrhea presents to the emergency room complaining of mid low back pain, lower pelvic pain with vaginal discharge that started 3 days ago. Patient states she is in a new relationship and not using protection. Has been taking ibuprofen for her pain with some relief. Denies nausea, vomiting, urinary symptoms. No fevers TRAVEL OUTSIDE OF THE [place] IN LAST 30 DAYS: No - Related Data Allergies/Adverse Reactions: prochlorperazine edisylate [From Compazine] Allergy (Severe, Verified 04/25/19 13:45) Facial swelling prochlorperazine maleate [From Compazine] Allergy (Severe, Verified 04/25/19 13:45) Facial swelling verapamil [Verapamil] Allergy (Intermediate, Verified 04/25/19 13:45) Pruritis Home Medications: Atorvastatin, Lisinopril, Metoprolol Past Medical History - General Information source: Patient - Social History Smoking Status: Former Smoker Frequency of alcohol use: None Drug Abuse: None Family History: Arthritis, CAD, Hyperlipidemia, Hypertension, Other - Psoriasis. denies: DM, Malignancy Patient has homicidal ideation: No - Past Medical History Cardiac Medical History: Reports: Hx Hypercholesterolemia, Hx Hypertension Denies: Hx Atrial Fibrillation, Hx Congestive Heart Failure, Hx Coronary Artery Disease, Hx DVT, Hx Heart Attack, Hx Peripheral Vascular Disease, Hx Pulmonary Embolism Pulmonary Medical History: Reports: Hx Asthma, Hx COPD Denies: Hx Bronchitis, Hx Pneumonia Neurological Medical History: Denies: Hx Seizures Endocrine Medical History: Denies: Hx Diabetes Mellitus Type 1, Hx Diabetes Mellitus Type 2, Hx Hyperthyroidism, Hx Hypothyroidism Renal/ Medical History: Reports: Hx Kidney Stones. Denies: Hx Peritoneal Dialysis GI Medical History: Denies: Hx Cirrhosis, Hx Crohn's Disease, Hx Gastroesophageal Reflux Disease, Hx Hepatitis, Hx Ulcerative Colitis Musculoskeletal Medical History: Denies Hx Arthritis, Denies Hx Gout, Reports Hx Musculoskeletal Deformity, Reports Hx Musculoskeletal Trauma Skin Medical History: Reports Hx Eczema, Reports Hx Psoriasis Psychiatric Medical History: Reports: Hx Anxiety, Hx Depression, Hx Post Traumatic Stress Disorder Traumatic Medical History: Reports: Hx Fractures Infectious Medical History: Denies: Hx Hepatitis Past Surgical History: Reports: Hx Section, Hx Tonsillectomy, Hx Urinary Tract Surgery - 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 Denies: Hx Pacemaker - Immunizations Hx Diphtheria, Pertussis, Tetanus Vaccination: Yes Review of Systems - Review of Systems Constitutional: No symptoms reported EENT: No symptoms reported Cardiovascular: No symptoms reported Respiratory: No symptoms reported Gastrointestinal: denies: Nausea, Vomiting Genitourinary: No symptoms reported Female Genitourinary: Vaginal discharge, Other - Lower pelvic pain. denies: Vaginal bleeding, Vaginal odor, Painful intercourse Musculoskeletal: Back pain Skin: No symptoms reported -: Yes All other systems reviewed and negative Physical Exam - Vital signs Vitals: Temp 98.2 F 07/26/19 10:37 - General General appearance: Appears well, Alert In distress: Mild - HEENT Head: Normocephalic, Atraumatic Eyes: Normal Pupils: PERRL - Respiratory Respiratory status: No respiratory distress Chest status: Nontender Breath sounds: Normal Chest palpation: Normal - Cardiovascular Rhythm: Regular Heart sounds: Normal auscultation Murmur: No - Abdominal Inspection: Normal Distension: No distension Bowel sounds: Normal Tenderness: Nontender Organomegaly: No organomegaly - Genitourinary External exam: Normal Speculum exam: Cervix closed, Vaginal discharge - moderate amount of green discharge noted. Vaginal bleeding: None Bimanuel exam: Normal. No: Cervical motion tender, Adnexal tenderness Notes: Chaperoned by MOHIT Rolon present for exam - Back Back: Normal, Nontender. No: CVA tenderness - Skin Skin Temperature: Warm Skin Moisture: Dry Skin Color: Normal Course - Re-evaluation Re-evalutation: 07/26/19 12:40 Patient is resting comfortably she is currently pain-free. Reviewed ultrasound and lab results with patient. Aware that her gonorrhea and Chlamydia tests are still pending. Patient has requested to be treated for both gonorrhea and chlamydia. She is to take Flagyl as prescribed for her bacterial vaginosis. Patient A knew about the uterine fibroids were noted on her pelvic ultrasound. She is to follow-up outpatient with slice cutting machine operator helper. On-call slice cutting machine operator helper was provided. If symptoms persist or do not improve in the next 2 to 3 days. Patient was given strict return to the emergency room guidelines. She is to return for any new or worsening symptoms. All questions were answered. Patient verbalized understanding and agreed to plan of care. - Vital Signs Vital signs: Temp Pulse Resp BP Pulse Ox 98.2 F 92 16 153/96 H 97 07/26/19 10:44 07/26/19 10:44 07/26/19 10:44 07/26/19 10:44 07/26/19 10:44 - Laboratory Result Diagrams: 07/26/19 11:50 07/26/19 11:50 Laboratory results interpreted by me: 07/26/19 07/26/19 10:30 11:50 WBC 13.1 H MCH 25.8 L RDW 17.3 H Plt Count 452 H Absolute Neuts (auto) 9.7 H Urine Blood LARGE H Ur Leukocyte Esterase LARGE H - Diagnostic Test Radiology reviewed: Reports reviewed Discharge - Discharge Clinical Impression: Bacterial vaginosis, Pelvic pain Uterine fibroid Qualifiers: Uterine leiomyoma location: unspecified location Qualified Code(s): D25.9 - Leiomyoma of uterus, unspecified Condition: Stable Disposition: HOME, SELF-CARE Instructions: Vaginosis, Bacterial ([facility]), Pelvic Pain ([facility]) Additional Instructions: Take Flagyl as prescribed. No drinking alcohol while taking Flagyl and for 24 hours after completing. Outpatient follow-up with a slice cutting machine operator helper as discussed. Return for any new or worsening symptoms. Prescriptions: Metronidazole [Flagyl 500 mg Tablet] 500 mg PO BID 7 Days #14 tablet Referrals: LUH CASPER MD [ACTIVE STAFF] - Follow up as needed
--- NOTE | 2019-07-26 12:07 | RADIOLOGY REPORT (SQ) ---
EXAM DESCRIPTION: U/S RETROPERITON (RENAL/AORTA) IMAGES COMPLETED DATE/TIME: 07/26/2019 11:49 am REASON FOR STUDY: Flank pain, hx of kidney stones x3 COMPARISON: None. TECHNIQUE: Dynamic and static grayscale images acquired of the kidneys and bladder and recorded on P ACS. Additional selected color Doppler and spectral images recorded. LIMITATIONS: None. FINDINGS: RIGHT KIDNEY: Normal size. Normal echogenicity. No solid or suspicious masses. No hydronep hrosis. No calcifications. LEFT KIDNEY: Normal size. Normal echogenicity. No solid or suspicious masses. No hydronephrosis. No calcifications. BLADDER: No masses. OTHER FINDINGS: No other significant finding. IMPRESSION: NORMAL RENAL AND BLADDER ULTRASOUND. TECHNICAL DOCUMENTATION: JOB ID: [id number] [employer]- All Rights Reserved Reading location - IP/workstation name: [email or web address]
--- NOTE | 2019-07-26 12:09 | RADIOLOGY REPORT (SQ) ---
EXAM DESCRIPTION: U/S NON OB PEL W/DOPPLER IMAGES COMPLETED DATE/TIME: 07/26/2019 11:49 am REASON FOR STUDY: new onset pelvic pain, +vaginal discharge COMPARISON: 10/14/2016. TECHNIQUE: Dynamic and static grayscale images acquired of the pelvis via transabdominal approach an d recorded on PACS. Additional selected color Doppler and spectral images recorded. LIMITATIONS: None. FINDINGS: UTERUS: Contour normal. Fibroids measuring 1.8 x 2.0 cm and 1.7 x 2.0 cm. ENDOMETRIAL STRIPE: No focal or generalized thickening. No masses. CERVIX: No nabothian cysts. RIGHT OVARY AND DOPPLER: Normal size. No worrisome masses. Normal arterial vascular flow without evid ence for torsion. LEFT OVARY AND DOPPLER: Normal size. No worrisome masses. Normal arterial vascular flow without evide nce for torsion. FREE FLUID: None noted. OTHER: No other significant finding. MEASUREMENTS: UTERUS: 4.7 x 5.9 x 9.1 cm. ENDOMETRIAL STRIPE: 1.1 cm. RIGHT OVARY: 1.8 x 2.0 x 2.3 cm. LEFT OVARY: 1.4 x 1.9 x 2.8 cm. IMPRESSION: SMALL UTERINE FIBROIDS. OTHERWISE UNREMARKABLE PELVIC ULTRASOUND. TECHNICAL DOCUMENTATION: JOB ID: [id number] 2010 [employer]- All Rights Reserved Rev Reading location - IP/workstation name: [email or web address]
[2019-07-26 12:11] LABS: ABSOLUTE BASOPHILS # (AUTO) 0.1 10^3/uL (0.0-0.2); ABSOLUTE EOSINOPHILS # (AUTO) 0.2 10^3/uL (0.0-0.6); ABSOLUTE LYMPHOCYTES (AUTO) 2.4 10^3/uL (0.5-4.7); ABSOLUTE MONOCYTES (AUTO) 0.7 10^3/uL (0.1-1.4); ABSOLUTE NEUT (AUTO) 9.7 10^3/uL (1.7-8.2); BASOPHILS % (AUTO) 0.7 % (0-2); EOSINOPHILS % (AUTO) 1.5 % (0-6); HEMATOCRIT 39.3 % (36.0-47.0); HEMOGLOBIN 12.7 g/dL (12.0-15.5); LYMPHOCYTES % (AUTO) 18.7 % (13-45); MEAN CORPUSCULAR HEMOGLOBIN 25.8 pg (27.0-33.4); MEAN CORPUSCULAR HGB CONC 32.4 g/dL (32.0-36.0); MEAN CORPUSCULAR VOLUME 80 fl (80-97); MONOCYTES % (AUTO) 5.1 % (3-13); PLATELET COUNT 452 10^3/uL (150-450); RED BLOOD COUNT 4.92 10^6/uL (3.72-5.28); RED CELL DISTRIBUTION WIDTH 17.3 % (11.5-14.0); TOTAL CELLS COUNTED % (AUTO) 100 %; WHITE BLOOD COUNT 13.1 10^3/uL (4.0-10.5)
[2019-07-26 12:12] LABS: BACTERIA (WET MOUNT) 4+ BACTERIA SEEN; RBCS (WET MOUNT) NO RBCS SEEN; T.VAGINALIS (WET MOUNT) NO TRICHOMONAS SEEN; WBCS (WET MOUNT) 4+ WBCS SEEN; YEAST (WET MOUNT) NO YEAST SEEN
[2019-07-26 12:34] LABS: ANION GAP 12 (5-19); BLOOD UREA NITROGEN 12 mg/dL (7-20); CALCIUM 9.4 mg/dL (8.4-10.2); CARBON DIOXIDE 24 mmol/L (22-30); CHLORIDE 103 mmol/L (98-107); GLUCOSE 84 mg/dL (75-110); POTASSIUM 4.3 mmol/L (3.6-5.0)
[2019-07-26] MEDS ORDERED: AZITHROMYCIN 250 MG TABLET PO ONE (12:36)
[2019-07-26] MEDS ORDERED: CEFTRIAXONE INJ 250 MG VIAL IM ONE (12:36)
[2019-07-26 12:51] VITALS: BP 142/92
[2019-07-26 13:43] LABS: CHLAM PCR NOT DETECTED (NOT DETECT)
== END 2019-07-26 13:08 | disposition home or self-care (01) ==
LOC: ER 10:27
DX: D25.9 Leiomyoma of uterus, unspecified (principal); N76.0 Acute vaginitis; B96.89 Other specified bacterial agents as the cause of diseases classified elsewhere; R10.2 Pelvic and perineal pain; R10.9 Unspecified abdominal pain; Z20.2 Contact with and (suspected) exposure to infections with a predominantly sexual mode of transmission; I10 Essential (primary) hypertension; E78.5 Hyperlipidemia, unspecified; J44.9 Chronic obstructive pulmonary disease, unspecified; I50.9 Heart failure, unspecified; Z87.442 Personal history of urinary calculi; Z88.8 Allergy status to other drugs, medicaments and biological substances; Z79.899 Other long term (current) drug therapy
CPT/HCPCS: 99284; 96372; 36415; 87210; 83690; 85025; 81025; 80048; 81001; 87491; 87591; 76770; 76856; 93976; J0696